=== PATIENT | female | born 1945 | race Caucasian/White ===

== ENCOUNTER 2017-06-01 08:04 | Emergency (ER) | payer MEDICARE, OTHER ==
--- NOTE | 2017-06-01 10:07 | UC ---
FLU HPI - HPI Summary HPI Summary: c/o influenza like symptoms for the past 3-4 days, has been taking zithromax from a prior prescription without avail. Rapid influenza at this center positive for influenza A/ - History of Current Complaint Chief Complaint: UCRespiratory Stated Complaint: RESP ISSUE Time Seen by Provider: 06/01/17 09:13 Hx Obtained From: Patient ?: No Onset/Duration: Gradual Onset, Lasting Days Severity Currently: Moderate Severity Initially: Mild Pain Scale Used: 0-10 Numeric - 0 Associated Signs & Symptoms: Positive: Fever, Cough, Sore Throat - Risk Factors Influenza Risk Factors: Age 65 y/o or Older - Allergy/Home Medications Allergies/Adverse Reactions: Allergies Allergy/AdvReac Type Severity Reaction Status Date / Time Erythromycin Allergy itch Verified 06/01/17 08:18 Sulfa Antibiotics Allergy itchiness Verified 06/01/17 08:18 Home Medications: Home Medications Amitriptyline HCl [Amitriptyline HCl-] 75 mg PO BEDTIME 06/01/17 [History Confirmed 06/01/17] Anastrozole [Arimidex] 1 mg PO DAILY 06/01/17 [History Confirmed 06/01/17] Atorvastatin* [Lipitor 20 MG*] 40 mg PO DAILY 06/01/17 [History Confirmed ] Azithromyxin ODELL (NF) [Z-Odell (Zithromax) 250 mg tabs #6] 2 tab PO .TODAY, THEN 1 DAILY 06/01/17 [History Confirmed 06/01/17] Calcium Carbonate-Cholecalcife [Calcium 1000 + D] 1 tab PO DAILY 06/01/17 [ History Confirmed 06/01/17] DULoxetine DR CAP* [Cymbalta CAP*] 20 mg PO BID 06/01/17 [History Confirmed ] Escitalopram Oxalate [Lexapro 20 mg] 20 mg PO DAILY 06/01/17 [History Confirmed 06/01/17] Hydrochlorothiazide [Microzide-] 12.5 mg PO DAILY 06/01/17 [History Confirmed ] Hydrocodone/Acetamin 10/325(NF [Potomac 10/325 (NF)] 1 tab PO TID PRN 06/01/17 [ History Confirmed 06/01/17] Krill Oil [Krill Oil 300 mg] 2 cap PO BID 06/01/17 [History Confirmed 06/01/17] Lansoprazole CAP (NF) [Prevacid CAP (NF)] 60 mg PO BID 06/01/17 [History Confirmed 06/01/17] Levothyroxine TAB* [Synthroid 125 MCG TAB*] 125 mg PO DAILY 06/01/17 [History Confirmed 06/01/17] Melatonin 10 mg PO BEDTIME 06/01/17 [History Confirmed 06/01/17] PMH/Surg Hx/FS Hx/Imm Hx Endocrine History: Dyslipidemia Neurological History: Other - neuropathy Other Neurological History: neuropathy Psychological History: Post Traumatic Stress Disorder - Surgical History Surgical History: Yes Surgery Procedure, Year, and Place: fx back and wrist - Social History Alcohol Use: None Substance Use Type: None Smoking Status (MU): Never Smoked Tobacco Review of Systems Constitutional: Fever ENT: Sore Throat Respiratory: Cough All Other Systems Reviewed And Are Negative: Yes Physical Exam Triage Information Reviewed: Yes Appearance: Ill-Appearing Vital Signs: Initial Vital Signs Temp 96.4 F 06/01/17 08:24 Pulse 99 06/01/17 08:24 Resp 16 06/01/17 08:24 BP 126/72 06/01/17 08:24 Pulse Ox 100 06/01/17 08:24 Vital Signs Reviewed: Yes Eye Exam: Normal ENT Exam: Normal Dental Exam: Normal Neck exam: Normal Respiratory Exam: Normal Cardiovascular Exam: Normal Flu Course/Dx - Course Course Of Treatment: rest, fluids, it is not advisible patient flies. Highly contagious. - Differential Dx/Diagnosis Provider Diagnoses: Influenza A Discharge - Discharge Plan Condition: Stable Disposition: HOME Patient Education Materials: Influenza (ED) Forms: *Work Release Referrals: No Primary Care Phys,NOPCP [Primary Care Provider] -
== END 2017-06-01 10:15 | disposition home or self-care (01) ==
LOC: UCEAST 08:04
DX: J11.1 Influenza due to unidentified influenza virus with other respiratory manifestations (principal); E78.5 Hyperlipidemia, unspecified; G62.9 Polyneuropathy, unspecified; F43.10 Post-traumatic stress disorder, unspecified; Z88.1 Allergy status to other antibiotic agents; Z88.2 Allergy status to sulfonamides
CPT/HCPCS: 87502; 99202; G0463

== ENCOUNTER 2017-11-14 07:48 | Emergency (ER) | payer MEDICARE, OTHER ==
--- OUTSIDE RECORDS SUMMARY | 2017-11-14 07:56 | XMS REPORT ---
:1945 External Reference #:[id number] Author Organization [employer] Address [address] [place] [address] [place] [address] Phone [phone] Care Team Providers Name Role Phone Anuja Garcia MD Primary Care Physician Unavailable Payers Type Date Identification Numbers Payment Provider Subscriber Medicare Primary Policy Number: [id number] Medicare Radha Ferro PayID: [id number] [address] [place] [address] [facility] Part B Policy Number: [id number] [employer] Radha Ferro PayID: [id number] [employer] [address] [address] [place] [address] Problems Description No Information Social History Description No Information Available Allergies, Adverse Reactions, Alerts Date Description Reaction Status Severity Comments 11/12/2017 Sulfa Antibiotics active Medications Medication Date Status Form Strength Qnty SIG Indications Ordering Provider Calcium Plus D 11/12 Active 3 daily Darrel Garcia Escitalopram 11/12 Active Tablets 20mg 90tab 1 by mouth s every day Darrel Garcia Zithromax Z-Luis A 05/30 Active Tablets 250mg 1Pack as per directions Darrel Ferro Synthroid Active Tablets 112mcg 1 by mouth Unknown /0000 every day Prevacid Active Capsules 30mg 2 by mouth Unknown /0000 DR every day Atorvastatin Active Tablets 40mg 1 by mouth Unknown Calcium /0000 every day Triamterene/Hyd Active Tablets 37.5-25mg 1 by mouth Unknown rochlorothiazid / every day e Anastrozole Active Tablets 1mg one daily Unknown / Amitriptyline Active Tablets 10mg 3 at bed Unknown HCL /0000 Cymbalta [address] 30mg 1 by mouth Unknown /0000 Part every day Melatonin ER 0000 Active Tablets 10mg 1 tab by Unknown /0000 ER mouth at bedtime Krill Oil 00 Active Capsules 300mg Unknown /0000 Aspir-81 00/00 Active Tablets 81mg 1 by mouth Unknown /0000 DR every day Vital Signs Date Vital Result Comment 11/12/2017 Height 61.5 inches 5'1.50" Weight 197.00 lb Heart Rate 85 /min BP Systolic Sitting 133 mmHg BP Diastolic Sitting 91 mmHg O2 % BldC Oximetry 100 % BMI (Body Mass Index) 36.6 kg/m2 Results Description No Information Procedures Description No Information Plan of Care Future Appointment(s):02/13/2018 1:00 pm - Anuja Garcia M.D. at [facility] Internal Medicine [facility]11/12/2017 - Anuja Garcia M.D.M54.9 Dorsalgia , unspecifiedNew Therapy:Physical TherapyComments:Start with PT at [facility]. Consider the transitions program from PTFollow up:3 months for BP and other issues. CATHIE: Dr. Manzanares [phone], Marlo Mayberry [phone], Marlo Ma [phone], [place] Dr. Frank [phone] [facility] [place] [phone] Gastro-esophageal reflux disease without esophagitisComments:Stay on the PrevacidReduce the amitriptylineWe will get your records and then I can refer you to GIM81.0 Age-related osteoporosis w/o current pathological fractureComments:Please do blood tests.R03.0 Elevated blood -pressure reading, w/o diagnosis of htnComments:Please check BP at home/ rhjbrokaE60.3 Personal history of malignant neoplasm of breastNew Xrays:[facility] YegymtiuzN66.828 Personal history of other malignant neoplasm of skinReferral:Krystal Asher MD, JsuvqkcudznN39.36 Body mass index (BMI) 36.0 -36.9, adultComments:Do PT first
[2017-11-14 08:08] VITALS: BP 127/91
--- NOTE | 2017-11-14 08:58 | RAD ---
HISTORY: knee injury COMPARISONS: None VIEWS: 4, Frontal, lateral, axial, and oblique views of the left knee FINDINGS: BONE DENSITY: Normal. BONES: There is no displaced fracture. JOINTS: There is moderate tricompartmental osteoarthritis. There is a moderate suprapatellar joint effusion without lipohemarthrosis. ALIGNMENT: There is no dislocation. SOFT TISSUES: Unremarkable. OTHER FINDINGS: None. IMPRESSION: OSTEOARTHRITIS. JOINT EFFUSION. NO ACUTE OSSEOUS INJURY. IF SYMPTOMS PERSIST, RECOMMEND REPEAT IMAGING.
--- NOTE | 2017-11-14 11:59 | UC ---
Alecia Oneill Rebecca, scribed for Meng Duff MD on 11/14/17 at 0824 . Lower Extremity/Ankle HPI - HPI Summary HPI Summary: Pt is a 72 y/o F who presents to [facility] c/o L lateral knee pain s/p "twist." Yesterday she was on a ladder and while stepping down, missed the step and twisted her L knee. Pain has been gradually worsening since onset, ranked 8/10 on triage. 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 Sx aggravated by ambulation, alleviated by nothing. Notes calf pain with ambulation. Has a cane with her, which she uses regularly. - History of Current Complaint Chief Complaint: UCLowerExtremity Stated Complaint: KNEE INJURY Time Seen by Provider: 11/14/17 08:18 Hx Obtained From: Patient Onset/Duration: Still Present Severity Currently: Severe Pain Intensity: 8 Pain Scale Used: 0-10 Numeric Aggravating Factor(s): Ambulation Alleviating Factor(s): Nothing Able to Bear Weight: Yes - Allergies/Home Medications Allergies/Adverse Reactions: Allergies Allergy/AdvReac Type Severity Reaction Status Date / Time erythromycin base Allergy Hives Verified 11/14/17 08:07 Sulfa (Sulfonamide Allergy Hives Verified 11/14/17 08:07 Antibiotics) Home Medications: Home Medications Ibuprofen TAB* [Advil TAB*] 400 mg PO Q6H PRN 11/14/17 [History Confirmed ] PMH/Surg Hx/FS Hx/Imm Hx - Additional Past Medical History Additional PMH: PMHx: Sciatica Endocrine History: Thyroid Disease GI/ History: Gastroesophageal Reflux - Surgical History Surgical History: Yes Surgery Procedure, Year, and Place: fx back and wrist. Back surgery 2016. R breast Lumpectomy 2014 - Family History Known Family History: Negative: Blood Disorder - Social History Alcohol Use: Weekly Substance Use Type: None Smoking Status (MU): Never Smoked Tobacco Review of Systems Constitutional: Negative Skin: Negative Eyes: Negative ENT: Negative Respiratory: Negative Cardiovascular: Negative Gastrointestinal: Negative Genitourinary: Negative Motor: Negative Neurovascular: Negative Musculoskeletal: Other: - L lateral knee pain, calf pain with ambulation Neurological: Negative Psychological: Negative All Other Systems Reviewed And Are Negative: Yes Physical Exam - Summary Physical Exam Summary: Appearance: Well appearing, no pain distress Skin: warm, dry, reflects adequate perfusion Head/face: normal Eyes: EOMI, ALEX ENT: normal Neck: supple, non-tender Respiratory: CTA, breath sounds present Cardiovascular: RRR, pulses symmetrical Abdomen: non-tender, soft Bowel Sounds: present Musculoskeletal: No erythema, no ankle swelling, no calf tenderness, examination of the left knee shows no joint effusion, no lateral joint line pain , is stable with varus and valgus, no muscular tenderness to palpation, mild proximal fibular tenderness, strength/ROM intact Neuro: normal, sensory motor intact, A&Ox3 Triage Information Reviewed: Yes Vital Signs: Initial Vital Signs Temp 97.5 F 11/14/17 08:00 Pulse 87 11/14/17 08:00 Resp 16 11/14/17 08:00 BP 127/91 11/14/17 08:00 Pulse Ox 100 11/14/17 08:00 Vital Signs Reviewed: Yes Diagnostics - Radiology Knee XR Radiology Interpretation Completed By: ED Physician - Degenerative arthritis, no acute fracture., Radiologist - OSTEOARTHRITIS. JOINT EFFUSION. NO ACUTE OSSEOUS INJURY. IF SYMPTOMS PERSIST, RECOMMEND REPEAT IMAGING. Physician reviewed this report. Re-Evaluation - Re-Evaluation First Eval Re-Evaluation Time: 08:55 Comment: Discussed XR results and recommended follow up. Lower Extremity Course/Dx - Course Course Of Treatment: Twisting injury to the leg with small effusion seen on x- ray. None clinically on exam. Likely LCL sprain. Anam wrap applied. Walking with a cane. Follow-up with primary care physician. Also noted to have significant osteoarthritis. Treat symptomatically. - Differential Dx/Diagnosis Provider Diagnoses: Lateral collateral ligament sprain left knee, osteoarthritis in the left knee Discharge - Sign-Out/Discharge Documenting (check all that apply): Discharge/Admit/Transfer - Discharge - Discharge Plan Condition: Improved Disposition: HOME Patient Education Materials: Knee Sprain (ED), Osteoarthritis (ED) Referrals: Anuja Garcia MD [Primary Care Provider] - Additional Instructions: Ice, ibuprofen, Anam wrap as needed. Return if worse, new symptoms or other concerns. See her doctor in 1 week for follow-up. Walk with cane as needed. - Billing Disposition and Condition Condition: IMPROVED Disposition: Home The documentation as recorded by the Alecia grider Rebecca accurately reflects the service I personally performed and the decisions made by Omega rivera Kirk, MD.
== END 2017-11-14 09:00 | disposition home or self-care (01) ==
LOC: UCEAST 07:48
DX: S83.422A Sprain of lateral collateral ligament of left knee, initial encounter (principal); X50.1XXA Overexertion from prolonged static or awkward postures, initial encounter; Y93.89 Activity, other specified; Y92.9 Unspecified place or not applicable; M17.12 Unilateral primary osteoarthritis, left knee; E07.9 Disorder of thyroid, unspecified; K21.9 Gastro-esophageal reflux disease without esophagitis; Z88.1 Allergy status to other antibiotic agents; Z88.2 Allergy status to sulfonamides
CPT/HCPCS: 99212; G0463

== ENCOUNTER 2017-12-04 13:29 | Emergency (ER) | payer MEDICARE, OTHER ==
--- OUTSIDE RECORDS SUMMARY | 2017-12-04 14:11 | XMS REPORT ---
:1945 External Reference #:[id number] Author Organization [employer] Address [address] [place] [address] [place] [address] Phone [phone] Care Team Providers Name Role Phone Anuja Garcia MD Primary Care Physician Unavailable Payers Type Date Identification Numbers Payment Provider Subscriber Medicare Primary Policy Number: [id number] Medicare Radha Ferro PayID: [id number] [address] [place] [address] [employer] Part B Policy Number: [id number] [employer] Radha Ferro PayID: [id number] [employer] [address] [address] [place] [address] Problems Date Description Provider Status Onset: 11/28/2017 Personal history of primary malignant Anuja Garcia M.D. 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 Synthroid Active Tablets 112mcg 1 by mouth Unknown /0000 every day Prevacid Active Capsules 30mg 2 by mouth Unknown / DR every day Atorvastatin Active Tablets 40mg 1 by mouth Unknown Calcium /0000 every day Triamterene/Hyd Active Tablets 37.5-25mg 90tab 1 by mouth Anuja rochlorothiaz / s every day Darrel Garcia e Anastrozole Active Tablets 1mg one daily Unknown Amitriptyline Active Tablets 10mg 3 at bed Unknown HCL [address] 30mg 1 by mouth Unknown / Part every day Melatonin ER Active Tablets 10mg 1 tab by Unknown / ER mouth at bedtime Krill Oil Active Capsules 300mg Unknown / Aspir-81 Active Tablets 81mg 1 by mouth Unknown /0000 DR every day Immunizations CPT Code Status Date Vaccine Lot # [id number] Given 11/15/2017 Zoster (Shingles) Vaccine (HZV), Recombinant, Subunit, Adjuvanted Vital Signs Date Vital Result Comment 11/28/2017 Height 61.5 inches 5'1.50" Weight 194.25 lb Heart Rate 93 /min BP Systolic Sitting 129 mmHg BP Diastolic Sitting 92 mmHg O2 % BldC Oximetry 97 % BMI (Body Mass Index) 36.1 kg/m2 11/12/2017 Height 61.5 inches 5'1.50" Weight 197.00 lb Heart Rate 85 /min BP Systolic Sitting 133 mmHg BP Diastolic Sitting 91 mmHg O2 % BldC Oximetry 100 % BMI (Body Mass Index) 36.6 kg/m2 Results Test Date Test Result H/L Range Note Lipid Profile (Trig/Chol/HDL) 11/18/2017 Triglycerides 107 mg/dL 1 Cholesterol 208 mg/dL 2 HDL Cholesterol 80.5 mg/dL 3 LDL Cholesterol 106 mg/dL 4 Comp Metabolic Panel 11/18/2017 Sodium 140 mmol/L 135-145 Potassium 3.7 mmol/L 3.5-5.0 Chloride 100 mmol/L Low 101-111 Co2 Carbon Dioxide 33 mmol/L High 22-32 Anion Gap 7 mmol/L 2-11 Glucose 97 mg/dL 70-100 Blood Urea Nitrogen 10 mg/dL 6-24 Creatinine 0.83 mg/dL 0.51-0.95 BUN/Creatinine Ratio 12.0 8-20 Calcium 9.5 mg/dL 8.6-10.3 Total Protein 6.7 g/dL 6.4-8.9 Albumin 4.0 g/dL 3.2-5.2 Globulin 2.7 g/dL 2-4 Albumin/Globulin Ratio 1.5 1-3 Total Bilirubin 0.40 mg/dL 0.2-1.0 Alkaline Phosphatase 57 U/L 34-104 Alt 16 U/L 7-52 Ast 23 U/L 13-39 Egfr Non- 67.4 >60 Egfr 81.5 >60 5 1 Desirable: <150 Borderline High: 150-199 High: 200-499 Very High: >500 2 Desirable: <200 Borderline High: 200-239 High: >239 3 Low: <40 Desirable: 40-60 High: >60 4 Desirable: <100 Near Optimal: 100-129 Borderline High: 130-159 High: 160-189 Very High: >189 5 Because ethnic data is not always readily available, this report includes an eGFR for both -Americans and non- Americans. The National Kidney Disease Education Program (NKDEP) does not endorse the use of the MDRD equation for patients that are not between the ages of 18 and 70, are , have extremes of body size, muscle mass, or nutritional status, or are non- or non-. According to the National Kidney Foundation, irrespective of diagnosis, the stage of the disease is based on the level of kidney function: Stage Description GFR(mL/min/1.73 m(2)) 1 Kidney damage with normal or decreased GFR 90 2 Kidney damage with mild decrease in GFR 60-89 3 Moderate decrease in GFR 30-59 4 Severe decrease in GFR 15-29 5 Kidney failure <15 (or dialysis) Procedures Description No Information Encounters Type Date Location Provider CPT E/M Dx Office Visit 11/12/2017 [facility] Anuja Garcia, [address] M54.9 10:40a - Merary Rojo K21.9 M81.0 R03.0 Z85.3 Z85.828 F33.9 Z68.36 Plan of Care Future Appointment(s):02/13/2018 1:00 pm - Anuja Garcia M.D. at [facility] Internal Medicine - Yeuwwzohk28/19/2018 - Anuja Garcia M.D.M54.30 Sciatica , unspecified sideNew Xrays:MRI Lumbar Spine W/OM85.80 Oth disrd of bone density and structure, unspecified siteComments:We need a copy of your bone density test You need to start back on ByqlzwH07.3 Personal history of malignant neoplasm of breastReferral:Aleksandar Ball MD, Hematology/Phys/ WfzlxQ16.559 Pain in unspecified hipM54.9 Dorsalgia, unspecified
--- NOTE | 2017-12-04 14:18 | ED ---
Upper Extremity Pain - HPI Summary HPI Summary: Patient is a 72-year-old female who presents emergency department for a right hand and right knee injury that occurred just prior to arrival. Patient states she just had an MRI done of her back and she was walking out and she tripped on her shoes and fell. She did not strike her head or lose consciousness. She is not anticoagulated. Patient denies chest pain, shortness of breath, lightheadedness, dizziness, recent illness. Symptoms are mild in severity. Moving right hand and right knee makes symptoms worse. Rest makes symptoms better. - History of Current Complaint Chief Complaint: EDExtremityUpper Stated Complaint: FALL/ RT KNEE & HAND PAIN Time Seen by Provider: 12/04/17 13:41 Hx Obtained From: Patient - Allergies/Home Medications Allergies/Adverse Reactions: Allergies Allergy/AdvReac Type Severity Reaction Status Date / Time erythromycin base Allergy Hives Verified 12/03/17 09:37 Sulfa (Sulfonamide Allergy Hives Verified 12/03/17 09:37 Antibiotics) PMH/Surg Hx/FS Hx/Imm Hx Previously Healthy: Yes Endocrine/Hematology History: Reports: Hx Thyroid Disease - hypo Denies: Hx Diabetes Cardiovascular History: Reports: Hx Hypertension Denies: Hx Pacemaker/ICD Respiratory History: Denies: Hx Asthma History: Denies: Hx Renal Disease Sensory History: Denies: Hx Hearing Aid Psychiatric History: Denies: Hx Panic Disorder - Cancer History Cancer Type, Location and Year: R breast 2013 Hx Chemotherapy: No Hx Radiation Therapy: Yes - Surgical History Surgery Procedure, Year, and Place: fx back and wrist. Back surgery 2016. R breast Lumpectomy 2013 Infectious Disease History: No Infectious Disease History: Denies: Hx Clostridium Difficile, Hx Hepatitis, Hx Human Immunodeficiency Virus (HIV), Hx of Known/Suspected MRSA, Hx Shingles, Hx Tuberculosis, Hx Known/ Suspected VRE, Hx Known/Suspected VRSA, History Other Infectious Disease, Traveled Outside the [place] in Last 30 Days - Family History Known Family History: Positive: Unknown Negative: Blood Disorder - Social History Occupation: Retired Lives: With Family Alcohol Use: Weekly Substance Use Type: Reports: None Smoking Status (MU): Never Smoked Tobacco Review of Systems Positive: Other - Right hand and knee pain Positive: Other - Abrasion to hand Neurological: Negative All Other Systems Reviewed And Are Negative: Yes Physical Exam Triage Information Reviewed: Yes Vital Signs On Initial Exam: Initial Vitals Temp Pulse Resp BP Pulse Ox 98.1 F 93 16 130/88 96 12/04/17 13:33 12/04/17 13:33 12/04/17 13:33 12/04/17 13:12/04/17 13:33 Vital Signs Reviewed: Yes Appearance: Positive: Well-Appearing - Patient sitting in a wheel chair in no acute distress. Skin: Positive: Warm, Dry Head/Face: Positive: Normal Head/Face Inspection Eyes: Positive: Normal Neck: Positive: Supple Musculoskeletal: Positive: Other - Mild edema and pain noted over the right MCP joint with small, overlying superficial abrasion. Pain to base of right thumb. No proximal wrist pain. No snuff box tenderness. Mild pain with ROM of right knee. Good pedal pulse. Neurological: Positive: Normal, CN Intact II-III Diagnostics - Vital Signs Vital Signs Temp Pulse Resp BP Pulse Ox 12/04/17 13:33 98.1 F 93 16 130/88 96 - Laboratory Lab Statement: Any lab studies that have been ordered have been reviewed, and results considered in the medical decision making process. Course/Dx - Course Course Of Treatment: Patient presenting for minor hand knee injury after a mechanical fall. X-rays of hand and knee are negative for acute findings, reading per radiology. Results discussed with patient. Anam wrap placed on palpation for comfort. Advised to follow-up with PCP for recheck pain persists. To ice and elevate. Tylenol or Motrin for pain as directed. Patient understands and agrees with plan. - Diagnoses Differential Diagnosis/HQI/PQRI: Positive: Contusion, Fracture (Closed), Strain , Sprain Provider Diagnoses: Knee sprain, Hand sprain Discharge - Sign-Out/Discharge Documenting (check all that apply): Patient Departure - Discharge Plan Condition: Good Disposition: HOME Patient Education Materials: Knee Sprain (ED), Hand Sprain (ED) Referrals: Anuja Garcia MD [Primary Care Provider] - Additional Instructions: Follow up with your PCP if pain persist Ice and elevate Tylenol for pain as directed Return to ER if symptoms change or worsen - Billing Disposition and Condition Condition: GOOD Disposition: Home
--- NOTE | 2017-12-04 14:30 | RAD ---
HISTORY: Fall, right hand pain COMPARISONS: None VIEWS: 4, Frontal, lateral, and oblique views of the right hand FINDINGS: BONE DENSITY: Normal. BONES: The patient is status post internal fixation of the distal radius. There is no hardware failure or osteolysis. JOINTS: There is advanced osteoarthritis of the first second and third interphalangeal joints, fourth DIP joint, and to lesser extent of the first MCP and CMC joints. ALIGNMENT: There is no dislocation. SOFT TISSUES: Unremarkable. OTHER FINDINGS: None. IMPRESSION: OSTEOARTHRITIS. NO ACUTE OSSEOUS INJURY. IF SYMPTOMS PERSIST, RECOMMEND REPEAT IMAGING.
--- NOTE | 2017-12-04 14:33 | RAD ---
HISTORY: fall, right knee pain COMPARISONS: None VIEWS: 4, Frontal, lateral, axial, and oblique views of the right knee FINDINGS: BONE DENSITY: There is diffuse osteopenia. BONES: There is no displaced fracture. JOINTS: There is moderate tricompartmental osteoarthritis, most pronounced within the medial compartment. There is no suprapatellar joint effusion or lipohemarthrosis. ALIGNMENT: There is no dislocation. SOFT TISSUES: Unremarkable. OTHER FINDINGS: None. IMPRESSION: 1. OSTEOPENIA. 2. OSTEOARTHRITIS. 3. NO ACUTE OSSEOUS INJURY. IF SYMPTOMS PERSIST, RECOMMEND REPEAT IMAGING.
[2017-12-04 15:32] VITALS: BP 124/72
== END 2017-12-04 15:20 | disposition home or self-care (01) ==
LOC: ED 13:29
DX: S63.91XA Sprain of unspecified part of right wrist and hand, initial encounter (principal); S83.91XA Sprain of unspecified site of right knee, initial encounter; W01.0XXA Fall on same level from slipping, tripping and stumbling without subsequent striking against object, initial encounter; Y92.9 Unspecified place or not applicable; M85.861 Other specified disorders of bone density and structure, right lower leg; M17.11 Unilateral primary osteoarthritis, right knee; Z88.3 Allergy status to other anti-infective agents; Z88.2 Allergy status to sulfonamides; M51.36 Other intervertebral disc degeneration, lumbar region; M54.30 Sciatica, unspecified side; M47.896 Other spondylosis, lumbar region; M48.07 Spinal stenosis, lumbosacral region; Z98.1 Arthrodesis status
CPT/HCPCS: 99282

== ENCOUNTER 2017-12-30 07:33 | Inpatient (IN) | payer MEDICARE, OTHER ==
--- NOTE | 2017-12-30 07:55 | ED ---
Lower Extremity - HPI Summary HPI Summary: Pt is a 72 y/o female BIBA who c/o right hip pain. She states she has a previous iliac crest fracture from falling several times, and has been managing at home with a walker. Last night, she states she was not doing anything when suddenly the hip pain became excruciating. Pain is described as 8/10 at rest 10/ 10 with movement, and radiates down the top of her leg. She denies any fall last night. She states she has nausea due to the pain, and also c/o left ankle pain. Pt denies any abdominal pain, urinary symptoms, or vomiting. She took 2 Percocets at home, as prescribed by her orthopedist. PMHx GERD, back pain, osteopenia, neuropathy, and incontinence. Pt denies any DM, heart problems, or lung problems. - History of Current Complaint Chief Complaint: EDExtremityLower Stated Complaint: RT HIP PAIN Time Seen by Provider: 12/30/17 07:38 Hx Obtained From: Patient Mechanism Of Injury: Unknown Onset/Duration: Hours - Last night Severity Currently: Severe Pain Intensity: 8 Pain Scale Used: 0-10 Numeric Timing: Constant Location: Radiates To - Down top of right leg Associated Signs And Symptoms: Positive: Other - Nausea. Negative: Abdominal Pain Aggravating Factor(s): Ambulation, Movement, Weight Bearing Alleviating Factor(s): Nothing Able to Bear Weight: No Related History: Other - Recent right iliac crest fracture - Allergies/Home Medications Allergies/Adverse Reactions: Allergies Allergy/AdvReac Type Severity Reaction Status Date / Time Sulfa (Sulfonamide Allergy Hives Verified 12/30/17 07:47 Antibiotics) PMH/Surg Hx/FS Hx/Imm Hx Endocrine/Hematology History: Reports: Hx Thyroid Disease - hypo Denies: Hx Diabetes Cardiovascular History: Denies: Hx Hypertension, Hx Pacemaker/ICD Respiratory History: Denies: Hx Asthma GI History: Reports: Hx Gastroesophageal Reflux Disease History: Reports: Other Problems/Disorders - Incontinence Denies: Hx Renal Disease Musculoskeletal History: Reports: Hx Back Problems, Other Musculoskeletal History - Osteopenia Sensory History: Denies: Hx Hearing Aid Neurological History: Reports: Other Neuro Impairments/Disorders - Neuropathy Psychiatric History: Denies: Hx Panic Disorder - Cancer History Cancer Type, Location and Year: R breast 2013 Hx Chemotherapy: No Hx Radiation Therapy: Yes - Surgical History Surgery Procedure, Year, and Place: fx back and wrist RIGHT. Back surgery 2016 L4-5. R breast Lumpectomy 2014. HERNIA REPAIR. TONSILS Infectious Disease History: No Infectious Disease History: Denies: Hx Clostridium Difficile, Hx Hepatitis, Hx Human Immunodeficiency Virus (HIV), Hx of Known/Suspected MRSA, Hx Shingles, Hx Tuberculosis, Hx Known/ Suspected VRE, Hx Known/Suspected VRSA, History Other Infectious Disease, Traveled Outside the [place] in Last 30 Days - Family History Known Family History: Negative: Blood Disorder - Social History Alcohol Use: Weekly Substance Use Type: Reports: None Smoking Status (MU): Never Smoked Tobacco Review of Systems Positive: Nausea. Negative: Abdominal Pain, Vomiting Genitourinary: Negative Positive: Arthralgia - Right hip pain, left ankle pain, Decreased ROM All Other Systems Reviewed And Are Negative: Yes Physical Exam - Summary Physical Exam Summary: GENERAL: Patient is a well developed and nourished F who is lying comfortable in the stretcher.Patient is not in any acute respiratory distress. HEAD AND FACE: Normocephalic EYES: PERRLA, EOMI x 2. EARS: Hearing grossly intact. MOUTH: Oropharynx within normal limits. NECK: Supple, trachea is midline, no adenopathy, no JVD, no carotid bruit. CHEST: Symmetric, no tenderness at palpation LUNGS: Clear to auscultation bilaterally. No wheezing or crackles. CVS: Regular rate and rhythm, S1 and S2 present, no murmurs or gallops appreciated. ABDOMEN: Soft, non-tender. Bowel sounds are normal. No abdominal abnormal pulsations. EXTREMITIES: Tenderness of right iliac crest area. 5/5 motor. ROM limited secondary to pain. 2/2 sensation. no edema, no cyanosis or clubbing. NEURO: Alert and oriented x 3. No acute neurological deficits. Speech is normal and follows commands. SKIN: Dry and warm Triage Information Reviewed: Yes Vital Signs On Initial Exam: Initial Vitals Temp Pulse Resp BP Pulse Ox 97.5 F 78 16 147/97 97 12/30/17 07:34 12/30/17 07:34 12/30/17 07:34 12/30/17 07:34 12/30/17 07:34 Vital Signs Reviewed: Yes Diagnostics - Vital Signs Vital Signs Temp Pulse Resp BP Pulse Ox 12/30/17 07:34 97.5 F 78 16 147/97 97 - Laboratory Result Diagrams: 01/02/18 05:12 12/31/17 06:39 Lab Statement: Any lab studies that have been ordered have been reviewed, and results considered in the medical decision making process. - CT Pelvis CT CT Interpretation: No Acute Changes - 07:55 AGAIN NOTED IS A FRACTURE OF THE RIGHT ILIAC WING, SIMILAR TO THE MRI OF DECEMBER 26, 2017. ED physician reviewed radiology report. CT Interpretation Completed By: Radiologist Re-Evaluation - Re-Evaluation First Eval Re-Evaluation Time: 10:19 Change: Unchanged Comment: Pt still in pain. Will speak to Dr. Yost. Lower Extremity Course/Dx - Course Course Of Treatment: Pt is a 72 y/o female BIBA who c/o right hip pain. She states she has a previous iliac crest fracture from falling several times, and has been managing at home with a walker. Last night, she states she was not doing anything when suddenly the hip pain became excruciating. Pain is described as 8/10 at rest 10/10 with movement, and radiates down the top of her leg. She denies any fall last night. She states she has nausea due to the pain, and also c/o left ankle pain. Pt denies any abdominal pain, urinary symptoms, or vomiting. A physical exam revealed Tenderness of right iliac crest area. 5/5 motor. ROM limited secondary to pain. 2/[address] revealed AGAIN NOTED IS A FRACTURE OF THE RIGHT ILIAC WING, SIMILAR TO THE MRI OF DECEMBER 26, 2017. Final dx are iliac crest fracture and hip pain. Case discussed with Dr. Yost. I discussed results with patient. The patient agrees with this plan. - Diagnoses Provider Diagnoses: Fracture of iliac crest, Hip pain - Physician Notifications Discussed Care Of Patient With: Rogers Yost Time Discussed With Above Provider: 10:25 Instructed by Provider To: Admit As Inpatient - Dr. Yost accepts pt for admission. Discharge - Sign-Out/Discharge Documenting (check all that apply): Patient Departure - Admit - Discharge Plan Condition: Stable Disposition: ADMITTED TO [facility] - Billing Disposition and Condition Condition: STABLE Disposition: Admitted to [facility] - Attestation Statements Document Initiated by Scribe: Yes Documenting Scribe: Edna Valladares Provider For Whom Scribe is Documenting (Include Credential): Alfredo Lawrence MD Scribe Attestation: IEdna, scribed for Alfredo Lawrence MD on 01/03/18 at 0736. Scribe Documentation Reviewed: Yes Provider Attestation: The documentation as recorded by the scribeEdna accurately reflects the service I personally performed and the decisions made by me, Alfredo Lawrence MD
--- OUTSIDE RECORDS SUMMARY | 2017-12-30 07:55 | XMS REPORT ---
:1945 External Reference #:[id number] Author Organization [employer] [employer] Address [address] [place] [address] [place] [address] Phone [phone] Care Team Providers Name Role Phone Anuja Garcia MD Primary Care Physician Unavailable Payers Type Date Identification Numbers Payment Provider Subscriber Medicare Primary Policy Number: [id number] Medicare Radha Ferro PayID: [id number] [address] [place] [address] Medigap Part B Policy Number: [id number] [employer] Radha Ferro PayID: [id number] [employer] [address] [address] [place] [address] Problems Date Description Provider Status Onset: 11/28/2017 Personal history of primary Anuja Garcia M.D. Active malignant neoplasm of breast Onset: 12/23/2017 Localized, primary osteoarthritis Nakia Bennett M.D. Active Onset: 12/23/2017 Localized, primary osteoarthritis Nakia Bennett M.D. 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, 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[employer] ETOH Use Drinks 3 Alcoholic Beverages Per Week Smoking Patient has never smoked Recreational Drug Use Denies Drug Use Daily Caffeine Consumes on average 2 cups of regular coffee per day Exercise Type/Frequency Exercises regularly Allergies, Adverse Reactions, Alerts Date Description Reaction Status Severity Comments 11/12/2017 Sulfa Antibiotics active Medications Medication Date Status Form Strength Qnty SIG Indications Ordering Provider Cyclobenzaprine 12/23 Active Tablets 10mg 30tab 1 tablet M25.551 Nakia HCL s by mouth Darrel Bennett q8 hours as needed muscle spasms Percocet 12/23 Active Tablets 5-325mg 60tab 1-2 tabs M25.551 Nakia s by mouth Darrel Bennett q8 as needed pain Tylenol With 12/05 Active Tablets 300-30mg 120ta 1 PO 4 Anuja Codeine # bs times Darrel Garcia daily as needed for pain Calcium Plus D 11/12 Active 3 daily Anuja /2018 Darrel Garcia Escitalopram 11/12 Active Tablets 20mg 90tab 1 by mouth Anuja Oxalate s every day Darrel Garcia Zithromax Z-Luis A 05/30 Active Tablets 250mg 1Pack as per [place] /2017 directions Darrel Ferro Synthroid Active Tablets 112mcg 1 by mouth Unknown /0000 every day Prevacid Active Capsules 30mg 60cap [address] stevens every day Darrel Garcia Atorvastatin Active Tablets 40mg 1 by mouth Unknown Calcium every day Triamterene/Hydr Active Tablets 37.5-25mg 90tab 1 by mouth Anuja ochlorothiazide s every day Darrel Garcia Anastrozole Active Tablets 1mg one daily Unknown / Amitriptyline Active Tablets 10mg 3 at bed Unknown HCL /[address] 30mg 1 by mouth Unknown /0000 Part every day Melatonin ER Active Tablets 10mg 1 tab by Unknown /0000 ER mouth at bedtime Krill Oil Active Capsules 300mg Unknown /0000 Aspir-81 Active Tablets 81mg 1 by mouth Unknown /0000 DR every day Immunizations CPT Code Status Date Vaccine Lot # [id number] Given 11/15/2017 Zoster (Shingles) Vaccine (HZV), Recombinant, Subunit, Adjuvanted Vital Signs Date Vital Result Comment 12/23/2017 Height 61.5 inches 5'1.50" Weight 193.00 lb BP Systolic 111 mmHg BP Diastolic 79 mmHg Respiratory Rate 17 /min Pain Level 7 BMI (Body Mass Index) 35.9 kg/m2 12/20/2017 Height 61.5 inches 5'1.50" Weight 193.50 lb Heart Rate 68 /min BP Systolic Sitting 118 mmHg BP Diastolic Sitting 92 mmHg Body Temperature 97.4 F Pain Level 7 BMI (Body Mass Index) 36.0 kg/m2 11/28/2017 Height 61.5 inches 5'1.50" Weight 194.25 [...] Test Date Test Result H/L Range Note Laboratory test finding 12/23/2017 Vitamin D Total 25(Oh) 41.6 ng/mL 20- 50 Basic Metabolic Panel 12/23/2017 Sodium 136 mmol/L 135-145 Potassium 3.6 mmol/L 3.5-5.0 Chloride 100 mmol/L Low 101-111 Co2 Carbon Dioxide 30 mmol/L 22-32 Anion Gap 6 mmol/L 2-11 Glucose 88 mg/dL 70-100 Blood Urea Nitrogen 20 mg/dL 6-24 Creatinine 1.01 mg/dL High 0.51-0.95 BUN/Creatinine Ratio 19.8 8-20 Calcium 9.3 mg/dL 8.6-10.3 Egfr Non- 53.7 >60 Egfr 65.0 >60 1 CBC Auto Diff 12/02/2017 White Blood Count 6.5 10^3/uL 3.5-10.8 Red Blood Count 4.27 10^6/uL 4.00-5.40 Hemoglobin 12.7 g/dL 12.0-16.0 Hematocrit 38 % 35-47 Mean Corpuscular Volume 89 fL 80-97 Mean Corpuscular Hemoglobin 30 pg 27-31 Mean Corpuscular HGB Conc 34 g/dL 31-36 Red Cell Distribution Width 14 % 10.5-15 Platelet Count 377 10^3/uL 150-450 Mean Platelet Volume 8.2 um3 7.4-10.4 Abs Neutrophils 3.8 10^3/uL 1.5-7.7 Abs Lymphocytes 1.9 10^3/uL 1.0-4.8 Abs Monocytes 0.5 10^3/uL 0-0.8 Abs Eosinophils 0.2 10^3/uL 0-0.6 Abs Basophils 0.1 10^3/uL 0-0.2 Abs Nucleated RBC 0 10^3/uL Granulocyte % 58.6 % 38-83 Lymphocyte % 29.4 % 25-47 Monocyte % 8.2 % High 0-7 Eosinophil % 2.9 % 0-6 Basophil % 0.9 % 0-2 Nucleated Red Blood Cells % 0 Laboratory test finding 12/02/2017 Erythrocyte Sed Rate 29 mm/Hr 0-40 C Reactive Protein 1.77 mg/L <8.01 Protein Electrophoresis 12/02/2017 Total Protein(Pep) 7.1 g/dL 6.3 - 7.9 Albumin 3.3 g/dL 3.4-4.7 Alpha-1 Globulin 0.2 g/dL 0.1-0.3 Alpha-2 Globulin 1.1 g/dL 0.6-1.0 Beta Globulin 1.3 g/dL 0.7-1.2 Gamma Globulin 1.2 g/dL 0.6-1.6 Albumin/Globulin Ratio 0.88 Impression See Comment 2 Lipid Profile (Trig/Chol/HDL) 11/18/2017 Triglycerides 107 mg/dL 3 Cholesterol 208 mg/dL 4 HDL Cholesterol 80.5 mg/dL 5 LDL Cholesterol 106 mg/dL 6 Comp Metabolic Panel 11/18/2017 Sodium 140 mmol/L [...] Egfr Non- 67.4 >60 Egfr 81.5 >60 7 1 Because ethnic data is not always readily [...] 15-29 5 Kidney failure <15 (or dialysis) 2 RESULT: No apparent monoclonal protein on serum electrophoresis. Test Performed by: [address] [address] 3 Desirable: <150 Borderline High: 150-199 High: 200-499 Very High: >500 4 Desirable: <200 Borderline High: 200-239 High: >239 5 Low: <40 Desirable: 40-60 High: >60 6 Desirable: <100 Near Optimal: 100-129 Borderline High: 130-159 High: 160-189 Very High: >189 7 Because ethnic data is not always readily [...] 5 Kidney failure <15 (or dialysis) Procedures Date CPT Code Description Status 12/05/2017 Mammogram Completed Encounters Type Date Location Provider CPT E/M Dx Office Visit 12/10/2017 [facility] [place] [address] M51.36 8:30a Of [facility] MD Ronal M51.17 M47.26 Z98.1 Office Visit 11/28/2017 4:00p [facility] Internal Medicine Anuja Garcia, 32594 M54.30 - Merary Rojo M85.80 Z85.3 M25.559 M54.9 Office Visit 11/12/2017 10:40a [facility] Internal Medicine Anuja Garcia [address] M54.9 - Merary Rojo K21.9 M81.0 R03.0 Z85.3 Z85.828 F33.9 Z68.36 Plan of Care Future Appointment(s):01/28/2018 2:00 pm - Leah Villeda MD at [facility]02/13/2018 1:00 pm - Anuja Garcia M.D. at [facility] Internal Medicine [facility]12/23/2017 - Nakia Bennett M.D.M25.551 Pain in right hipNew Medication:Cyclobenzaprine HCL 10 mgPercocet 5-325 mgNew Xrays:Hip Right 2 Views And Pelvis [id number] - [id number] up:Follow up: after MRIM16.11 Unilateral primary osteoarthritis, right hipM25.562 Pain in left kneeM25.462 Effusion, left kneeM17.12 Unilateral primary osteoarthritis, left knee
--- OUTSIDE RECORDS SUMMARY | 2017-12-30 07:56 | XMS REPORT ---
:1945 External Reference #:[id number] Author Organization [employer] Address [address] [place] [address] [place] [address] Phone [phone] Care Team Providers Name Role Phone Anuja Garcia MD Primary Care Physician Unavailable Payers Type Date Identification Numbers Payment Provider Subscriber Medicare Primary Policy Number: [id number] Medicare Radha Ferro PayID: [id number] [address] [place] [address] Medigap Part B Policy Number: [id number] [employer] Radha Ferro PayID: [id number] [employer] [address] [address] [place] [address] Problems Date Description Provider Status Onset: 11/28/2017 Personal history of primary Anuja Garcia M.D. 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[employer] ETOH Use Drinks 3 Alcoholic Beverages Per Week Smoking Patient has never smoked Recreational Drug Use Denies Drug Use Daily Caffeine Consumes on average 2 cups of regular coffee per day Exercise Type/Frequency Exercises regularly Allergies, Adverse Reactions, Alerts Date Description Reaction Status Severity Comments 11/12/2017 Sulfa Antibiotics active Medications Medication Date Status Form Strength Qnty SIG Indications Ordering Provider Tylenol With 12/05 Active Tablets 300-30mg 28tab 1 PO 4 Anuja Codeine # s times daily Darrel Garcia as needed for pain Calcium Plus D 11/12 Active 3 daily Anuja Darrel Garcia Escitalopram 11/12 Active Tablets 20mg 90tab 1 by mouth Anuja s every day Darrel Garcia Zithromax Z-Luis A 05/30 Active Tablets 250mg 1Pack as per [place] directions Darrel Ferro Synthroid Active Tablets 112mcg 1 by mouth Unknown /0000 every day Prevacid Active Capsules 30mg 2 by mouth Unknown /0000 DR every day Atorvastatin Active Tablets 40mg 1 by mouth Unknown Calcium /0000 every day Triamterene/Hyd Active Tablets 37.5-25mg 90tab 1 by mouth Anuja rochlorothiaz / s every day Darrel Garcia e Anastrozole Active Tablets 1mg one daily Unknown /0000 Amitriptyline Active Tablets 10mg 3 at bed [...] CPT Code Status Date Vaccine Lot # [id number] Given 11/15/2017 Zoster (Shingles) Vaccine (HZV), Recombinant, [...] Test Date Test Result H/L Range Note CBC Auto Diff 12/02/2017 White Blood Count [...] 0.6-1.6 Albumin/Globulin Ratio 0.88 Impression See Comment 1 Lipid Profile (Trig/Chol/HDL) 11/18/2017 Triglycerides 107 mg/dL 2 Cholesterol 208 mg/dL 3 HDL Cholesterol 80.5 mg/dL 4 LDL Cholesterol 106 mg/dL 5 Comp Metabolic Panel 11/18/2017 Sodium 140 mmol/L [...] Egfr Non- 67.4 >60 Egfr 81.5 >60 6 1 RESULT: No apparent monoclonal protein on serum electrophoresis. Test Performed by: [address] [address] 2 Desirable: <150 Borderline High: 150-199 High: 200-499 Very High: >500 3 Desirable: <200 Borderline High: 200-239 High: >239 4 Low: <40 Desirable: 40-60 High: >60 5 Desirable: <100 Near Optimal: 100-129 Borderline High: 130-159 High: 160-189 Very High: >189 6 Because ethnic data is not always readily [...] Location Provider CPT E/M Dx Office Visit 11/28/2017 [facility] Internal Medicine Anuja Garcia, 47593 M54.30 4:00p - Merary Rojo M85.80 Z85.3 M25.559 M54.9 Office Visit 11/12/2017 10:40a [facility] Internal Medicine Anuja Garcia, 26661 M54.9 - Merary Rojo K21.9 M81.0 R03.0 Z85.3 Z85.828 F33.9 Z68.36 Plan of Care Future Appointment(s):02/13/2018 1:00 pm - Anuja Garcia M.D. at [facility] Internal Medicine - Whlxkmkeo68/31/2018 - Leah Villeda, MDM51.36 Other intervertebral disc degeneration, lumbar regionNew Xrays:CT Spine Lumbar W/OSP Lumbar Ap//Lat 2-3 ViewsSpine Entire Ap/LatNew Therapy:Physical TherapyReferral: Nakia Bennett MD, Surgery,Ortho Adult ReconFollow up:RV in one week after films are done. Please obtain prior DEXA scan results and previous lumbar surgery operative report.M51.17 Intvrt disc disorders w radiculopathy, lumbosacral ohyupvT63.26 Other spondylosis with radiculopathy, lumbar region
--- OUTSIDE RECORDS SUMMARY | 2017-12-30 07:56 | XMS REPORT ---
:1945 External Reference #:[id number] Author Organization [facility] Address 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 Test Performed by: [address] [address] Desirable: <150 Borderline High: 150-199 High: [...] Provider CPT E/M Dx Office Visit 11/28/2017 [facility] Internal Medicine Anuja Garcia, 58430 M54.30 4:00p - Merary Rojo M85.80 Z85.3 M25.559 M54.9 Office Visit 11/12/2017 10:40a [facility] Internal Medicine Anuja Garcia, 74259 M54.9 - Merary Rojo K21.9 M81.0 R03.0 Z85.3 Z85.828 F33.9 Z68.36 Plan of Care Future Appointment(s):02/13/2018 1:00 pm - Anuja Garcia M.D. at [facility] Internal Medicine - Mvfdxzyzw52/31/2018 - Leah Villeda, MDM51.36 Other intervertebral disc degeneration, lumbar regionNew Xrays:CT Spine Lumbar W/OSP Lumbar Ap//Lat 2-3 ViewsSpine Entire Ap/LatNew Therapy:Physical TherapyFollow up :RV in one week after films are done. Please obtain prior DEXA scan results and previous lumbar surgery operative report.M51.17 Intvrt disc disorders w radiculopathy, lumbosacral mfyysdT59.26 Other spondylosis with radiculopathy, lumbar region
--- OUTSIDE RECORDS SUMMARY | 2017-12-30 07:56 | XMS REPORT ---
:1945 External Reference #:[id number] Author Organization [employer] Address [address] [place] [address] [place] [address] Phone [phone] Care Team Providers Name Role Phone Anuja Garcia MD Primary Care Physician Unavailable Payers Type Date Identification Numbers Payment Provider Subscriber Medicare Primary Policy Number: [id number] Medicare Radha Ferro PayID: [id number] [address] [place] [address] Medigap Part B Policy Number: [id number] [employer] Radha Ferro PayID: [id number] [employer] [address] [address] [place] [address] Problems Date Description Provider Status Onset: 11/28/2017 Personal history of primary Anuja Garcia M.D. 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 Test Performed by: [address] [address] 2 Desirable: <150 Borderline High: 150-199 High: [...] Provider CPT E/M Dx Office Visit 11/28/[address] [facility] Internal Medicine Anuja Garcia, 15647 M54.30 4:00p - Merary Rojo M85.80 Z85.3 M25.559 M54.9 Office Visit 11/12/2017 10:40a [facility] Internal Medicine Anuja Garcia, 35757 M54.9 - Merary Rojo K21.9 M81.0 R03.0 Z85.3 Z85.828 F33.9 Z68.36 Plan of Care Future Appointment(s):12/20/2017 3:00 pm - Leah Villeda MD at [facility]02/13/2018 1:00 pm - Anuja Garcia M.D. at [facility] Internal Medicine - Pwclkdrkh90/31/2018 - Leah Villeda, MDM51.36 Other intervertebral disc degeneration, lumbar regionNew Xrays:SP Lumbar Ap//Lat 2-3 ViewsSpine Entire Ap/LatNew Therapy:Physical TherapyReferral:Nakia Bennett MD, Surgery,Ortho Adult ReconFollow up:RV in one week after films are done. Please obtain prior DEXA scan results and previous lumbar surgery operative report.M51.17 Intvrt disc disorders w radiculopathy, lumbosacral toirrsO94.26 Other spondylosis with radiculopathy, lumbar region
--- OUTSIDE RECORDS SUMMARY | 2017-12-30 07:56 | XMS REPORT ---
:1945 External Reference #:[id number] Author Organization [employer] Address [address] [facility] [address] [place] [address] Phone [phone] Care Team Providers Name Role Phone Anuja Garcia MD Primary Care Physician Unavailable Payers Type Date Identification Numbers Payment Provider Subscriber Medicare Primary Policy Number: [id number] Medicare Radha Ferro PayID: [id number] [address] [place] [address] Medigap Part B Policy Number: [id number] [employer] Radha Ferro PayID: [id number] [employer] [address] [address] [place] [address] Problems Date Description Provider Status Onset: 11/28/2017 [...] Comments Marital Status 2018 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, 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 [employer] ETOH Use Drinks 3 Alcoholic Beverages Per [...] Provider Tylenol With 12/05 Active Tablets 300-30mg 120ta 1 PO 4 Anuja Codeine # bs times daily Darrel Garcia as needed for pain Calcium Plus D 11/12 Active 3 daily Anuja Darrel Garcia Escitalopram 11/12 Active Tablets 20mg 90tab 1 by mouth Anuja s every day Darrel Garcia Zithromax Z-Luis A 05/30 Active Tablets 250mg 1Pack as per [facility] directions Darrel Ferro Synthroid Active Tablets 112mcg 1 by mouth Unknown /0000 every day Prevacid Active Capsules 30mg 60cap 2 by mouth Anuja /0000 DR s every day Darrel Garcia Atorvastatin Active Tablets 40mg 1 by mouth Unknown Calcium / every day Triamterene/Hyd Active Tablets 37.5-25mg 90tab 1 by mouth Anuja rochlorothiazid s every day Darrel Garcia e Anastrozole [...] Tablets 81mg 1 by mouth Unknown /0000 every day Immunizations CPT Code Status Date Vaccine Lot # [id number] Given 11/15/2017 Zoster (Shingles) Vaccine (HZV), Recombinant, Subunit, Adjuvanted Vital Signs Date Vital Result Comment 12/20/2017 Height 61.5 inches 5'1.50" Weight 193.50 [...] protein on serum electrophoresis. Test Performed by: [address] [address] Desirable: <150 Borderline High: 150-199 High: [...] Dx Office Visit 12/10/2017 [facility] [place] [id number] M51.36 8:30a Of Moon Villeda MD M51.17 M47.26 Z98.1 Office Visit 11/28/2017 4:00p [facility] Anuja Garcia, [address] M54.30 - Merary Rojo M85.80 Z85.3 M25.559 M54.9 Office Visit 11/12/2017 10:40a [facility] Anuja Garcia, 25668 M54.9 - Merary Rojo K21.9 M81.0 R03.0 Z85.3 Z85.828 F33.9 Z68.36 Plan of Care Future Appointment(s):01/28/2018 2:00 pm - Leah Villeda MD at [facility]12/23/2017 1:00 pm - Nakia Bennett M.D. at [facility] [place]02/13/2018 1:00 pm - Anuja Garcia M.D. at [facility] [place]
[2017-12-30] MEDS ORDERED: Morphine VIAL* 10 MG/ML 1 ML VIAL IV ONE (08:03)
[2017-12-30] MEDS ORDERED: Ondansetron INJ* 2 MG/ML VIAL IV ONE (08:04)
[2017-12-30 08:19] LABS: ABS Basophils 0.1 10^3/ul (0-0.2); ABS Eosinophils 0.3 10^3/ul (0-0.6); ABS Lymphocytes 1.2 10^3/ul (1.0-4.8); ABS Monocytes 0.6 10^3/ul (0-0.8); ABS Neutrophils 4.8 10^3/ul (1.5-7.7); ABS Nucleated RBC 0 10^3/ul; Eosinophil % 3.9 % (0-6); Hematocrit 35 % (35-47); Hemoglobin 11.9 g/dl (12.0-16.0); Mean Corpuscular HGB Conc 34 g/dl (31-36); Mean Corpuscular Hemoglobin 30 pg (27-31); Mean Corpuscular Volume 88 fL (80-97); Mean Platelet Volume 7.5 um3 (7.4-10.4); Nucleated Red Blood Cells % 0; Platelet Count 347 10^3/ul (150-450); Red Blood Count 3.95 10^6/ul (4.00-5.40); Red Cell Distribution Width 14 % (10.5-15); White Blood Count 6.9 10^3/ul (3.5-10.8)
[2017-12-30 08:42] LABS: EGFR Non-African American 67.4 (>60)
--- NOTE | 2017-12-30 09:26 | RAD ---
HISTORY: WORSENING RIGHT SIDE PELVIS PAIN COMPARISONS: MRI dated December 26, 2017 TECHNIQUE: Multiple contiguous axial CT images are obtained of the pelvis, with coronal and sagittal multiplanar reconstructions, without intravenous contrast administration. FINDINGS: BONE DENSITY: Normal. BONES: Again noted is a fracture of the right iliac wing. There is minimal angulation. This is slightly impacted. This is similar to the previous MRI examination accounting for differences in technique. JOINTS: There is no arthropathy. MUSCULATURE: There is mild edema of the iliac esophagus and gluteal musculature as noted on the previous MRI. ALIGNMENT: There is no dislocation. SOFT TISSUES: Unremarkable. OTHER FINDINGS: The patient is status post laminectomy and lumbar fusion with pedicle screws and rods. There is methylmethacrylate noted within the L4 vertebral body. There is anterolateral marginal osteophyte formation with severe left and moderate right neuroforaminal narrowing at L5-S1. IMPRESSION: AGAIN NOTED IS A FRACTURE OF THE RIGHT ILIAC WING, SIMILAR TO THE MRI OF DECEMBER 26, 2017
[2017-12-30 09:45] LABS: Urine Appearance Clear; Urine Blood Negative (Negative); Urine Color Straw; Urine Ketones Negative (Negative); Urine Protein Negative (Negative); Urine Specific Gravity 1.006 (1.010-1.030); Urine Urobilinogen Negative (Negative)
[2017-12-30] MEDS ORDERED: Acetaminophen TAB* 325 MG PO PRN (11:39)
[2017-12-30] MEDS ORDERED: Ondansetron INJ* 2 MG/ML VIAL IV PRN (11:39)
[2017-12-30] MEDS ORDERED: Potassium Chlor TAB* 20 MEQ TAB.ER PO ONE (11:45)
[2017-12-30] MEDS ORDERED: Morphine INJ* 2 MG/ML 1 ML SYRINGE (TWO MG - NEW SYRINGE VERSION) IV PRN (11:56)
[2017-12-30] MEDS: Heparin VIAL(*) 5000 UNITS/ML VIAL (FIVE THOUSAND) SUBCUT SCH ×2 (12:32→22:19)
[2017-12-30] MEDS: oxyCODONE/Acetamin 5/325 MG* TAB PO PRN ×2 (12:33→19:38)
[2017-12-30] MEDS: predniSONE TAB* 20 MG PO SCH (12:33)
[2017-12-30] MEDS: Gabapentin CAP(*) 100 MG PO SCH ×2 (12:44→20:07)
--- NOTE | 2017-12-30 13:34 | HP ---
CC: Dr. Garcia; Dr. Villeda; Dr. Fernandez; Dr. Saleem; Dr. Bennett * HISTORY AND PHYSICAL: DATE OF ADMISSION: 12/30/17 PRIMARY CARE PROVIDER: Dr. Garcia. ATTENDING PHYSICIAN WHILE IN HOSPITAL: Dr. Rogers Yost * (report dictated by Cooper Jean NP) CONSULTING ORTHOPEDIST: Dr. Saleem. CONSULTING NEUROSURGEON: Dr. Fernandez. CHIEF COMPLAINT: Right hip pain and right leg pain. HISTORY OF PRESENT ILLNESS: Ms. Ferro is a 72-year-old female patient who carries a history of hypothyroidism, GERD, depression, hyperlipidemia, breast cancer. She has a history of neuropathy bilaterally and also carries a history of spinal stenosis and osteopenia. She comes in today. She says that 3 weeks ago she fell here in the hospital while she was getting some outpatient lab work done. She developed pain in her right hip. She underwent imaging and was found to have a right iliac wing fracture. She said she has been having intermittent pain, but was able to control it. She was following with Dr. Bennett actually. However, last night, she was turning in bed and then suddenly she started having pain in that hip, but the pain was a little different, she said it was shooting now down the front of her right leg. She denied any worsening numbness or weakness, but she is stating that she can barely lift the leg because it causes exquisite pain. She says that she has not had any trauma to that extremity since 3 weeks ago. She did fall a few months ago down in [place] when she was relocating is what the patient had told me. She states that she has not had any bowel or bladder incontinence. Denies any saddle anesthesia , but she says that the pain was just getting too much, she could not stand or put weight on it, she could not really walk. Her son was out of town and unfortunately, she did not what to do, so she came into the ER to be further evaluated. She denies any recent fevers or chills. There has been no cough. There is no vomiting or diarrhea. No chest pain or shortness of breath. She says that she has been walking with a walker, but today she cannot put any weight on that leg because it hurts way too much. She was evaluated in the ED. Because of the exquisite pain, we were asked to evaluate for admission. She has had a lumbar MRI just about a month ago, which does show significant central canal stenosis at L3-4 with right-sided disk protrusion. PAST MEDICAL HISTORY: Significant for: 1. Hypothyroidism. 2. GERD. 3. Depression. 4. Neuropathy. 5. Osteopenia. 6. Hyperlipidemia. 7. Breast cancer. 8. Hypertension. PAST SURGICAL HISTORY: She has had fusion at L4-L5. She has had right wrist surgery and she has had a Wayne fundoplication. HOME MEDICATIONS: I did review these with the patient. 1. Percocet 1 tablet p.o. t.i.d. as needed. 2. Hydrochlorothiazide 12.5 mg p.o. daily. 3. Melatonin 10 mg at bedtime. 4. Synthroid 125 mcg p.o. daily. 5. Prevacid 60 mg p.o. b.i.d. 6. Krill oil 2 capsules p.o. b.i.d. 7. Ibuprofen 400 mg p.o. every 6 hours as needed. 8. Lexapro 20 mg p.o. daily. 9. Cymbalta. She started 20 mg daily. 10. Calcium carbonate 1 tablet p.o. daily. 11. Lipitor 40 mg daily. 12. Arimidex 1 mg p.o. daily. 13. Amitriptyline 75 mg p.o. at bedtime. 14. Flexeril 10 mg p.o. t.i.d. ALLERGIES TO MEDICATIONS: Include SULFA DRUGS. FAMILY HISTORY: Mother had a history of COPD and father had a history of lung cancer. SOCIAL HISTORY: She does not smoke. She does drink rarely, has a glass of wine. Surrogate decision maker is her son, Karson Ferro. REVIEW OF SYSTEMS: There is no documented fever. She denies having any significant weight change. There is no double vision. She denies having any ear discharge. There is no rhinorrhea. She denies having any sore throat. No thyroid enlargement. Denies having any chest pain. There is no orthopnea. There is no nocturnal dyspnea. There was no abdominal pain. There was no nausea , no vomiting. No dysuria, no frequency. No seizure, no loss of consciousness. No pruritus and no skin ulcerations. Review of 14 systems was completed, all others negative. PHYSICAL EXAMINATION GENERAL: At this time, Ms. Ferro is a 72-year-old female patient. She is sitting in the ED stretcher. She does not appear to be in any acute distress. She is well nourished and well developed. VITAL SIGNS: Blood pressure 128/86, pulse 76, respirations 18, O2 sat 97%, temperature 98.5. HEENT: Head: Atraumatic and normocephalic. Eyes: EOMs are intact. Sclerae anicteric and not pale. Throat: Oral mucosa appears to be moist. No oropharyngeal erythema. NECK: Supple. LUNGS: Clear to auscultation bilaterally. No wheezes, rales, or rhonchi. HEART: Sounds S1, S2. She had a regular rate and rhythm. No murmurs, rubs, or gallops. ABDOMEN: Soft, flat, nontender. Bowel sounds were present. EXTREMITIES: Pulses were 2+ throughout. She has a 5/5 strength in the upper extremities. The lower extremities, she has a positive straight leg test on the right at about 10 degrees. She has 5/5 strength in dorsi and plantarflexion to bilateral lower extremities. She had 5/5 strength in flexion and extension at the knees. On the left leg, she had 5/5 strength at hip flexion. On the right leg, she cannot do it, when she goes to lift the right leg and any resistance causes exquisite pain. She is able to do it, but it is limited due to pain in the hip. NEUROLOGICAL: She is awake, alert, and oriented x3. Speech is clear. Tongue is midline. She had no gross focal deficits. No focal weaknesses were appreciated on my exam. SKIN: Intact. DIAGNOSTIC STUDIES/LAB DATA: Her labs reveal a WBC of 6.9, RBC of 3.95, hemoglobin of 11.9, hematocrit of 35, and her platelet count was 347. Sodium was 135, potassium was 3.4, chloride of 99, bicarb 31, BUN 15, creatinine of 0.83, glucose 84. Total bili 0.3, AST 20, ALT 14, alk phos 109. CRP was 16. Lipase less than 10. Urine was obtained and was negative. She had a pelvis CT obtained today which revealed again noted a right iliac wing fracture similar to the MRI on 12/26/17. She had a hip MRI done which revealed and this was done 4 days ago, mildly impacted fracture of the right iliac wing with bone marrow edema and interstitial edema within the adjacent gluteus minimus and medius musculature, bone marrow edema extends from the iliac crest superiorly to the anteroinferior iliac spine. Inferiorly, no underlying pathologic bone lesion evident. Negative for right femoral neck fracture. She had a lumbar spine CT, which revealed status post laminectomy and spinal fusion, scoliosis, osteopenia, degenerative disk disease and osteoarthritis, severe narrowing of the central canal at L3-4. There is multilevel neural foraminal narrowing as described above. She did have a lumbar spine MRI obtained, which showed status post spinal fusion , degenerative disk and osteoarthritis. There is severe narrowing of the central canal at L3-4 with a right-sided disk protrusion. There is multilevel neural foraminal narrowing as described above. Old medical records were reviewed. ASSESSMENT AND PLAN: Ms. Ferro is a 72-year-old female patient coming into the ED today with complaints of pain starting in her right hip and going down the right leg anteriorly. There was concern because the pain was quite severe. We were asked to evaluate for admission. She will be admitted under inpatient status for: 1. Lumbar radiculopathy. Again, she is not having any new focal neuro deficits , but she is having exquisite pain, she has a positive straight leg test. Because she just had a recent MRI, I have not ordered another one, I wanted to get input from Neurosurgery. I have a call placed out to Dr. Fernandez and his team. My plan will be to start her on steroids to give her a burst dose and start her on 60. We can do that with a quick taper. I have put her on Flexeril p.r.n., p.r.n. Percocet, in addition to this p.r.n. morphine. I have ordered a Lidoderm patch. I have ordered PT to help and again, we will get Neurosurgery input. She also does have a right iliac fracture, which may be contributing to some of this pain, but again with the shooting pain that to me sounds more lumbar, but I would like to get the input of Orthopedics and Neurosurgery, so I have a call out to the Orthopedics as well. 2. Right iliac wing fracture. Again, we will continue pain control, in addition to this, we will get in touch with on-call orthopedist. I have ordered PT. 3. Hypothyroidism. Continue her Synthroid. 4. Gastroesophageal reflux disease. Continue PPI therapy. 5. Depression. Continue with her current medical regimen and supportive care. 6. Hyperlipidemia. Continue statin therapy. 7. History of breast cancer. Continue her meds as prescribed. 8. History of neuropathy. Continue meds as prescribed. 9. Osteopenia. She can follow up with her PCP. 10. DVT prophylaxis: She is high risk. We will place her on heparin subcu. 11. Code status: She is a full code. 12. Fluids, electrolytes, and nutrition: She can have a regular diet. TIME SPENT: Time spent on the admission was 60 minutes, greater than half the time was spent [id number] with the patient obtaining my history and physical, other half time was spent going over the plan of care with the patient and implementing the plan of care. I discussed the plan of care with my attending, Dr. Yost, he is in agreement. COOPER JEAN, AUTOMATIC SPINNING LATHE SETTER [id number]/CPS #: [id number] MARIA A
[2017-12-30 13:38] LABS: INR 0.88 (0.77-1.02)
[2017-12-30] MEDS: Omeprazole CAP* 20 MG PO SCH (16:40)
[2017-12-30] MEDS: Gaviscon CHEW TAB* 1 TAB PO PRN (16:52)
[2017-12-30] MEDS: Cyclobenzaprine TAB* 10 MG PO PRN (19:35)
[2017-12-30] MEDS: Lidocaine Patch REMOVE* 1 NOTE MISC SCH (19:52)
[2017-12-30] MEDS: Amitriptyline TAB* 25 MG PO SCH (20:03)
[2017-12-30] MEDS ORDERED: Omeprazole CAP* 20 MG PO SCH (21:00)
[2017-12-30] MEDS ORDERED: Melatonin 3 MG TAB PO SCH (21:00)
--- NOTE | 2017-12-30 21:02 | CONS ---
CONSULTATION REPORT: DATE OF CONSULT: 12/30/17 HISTORY OF PRESENT ILLNESS: Ms. Ferro is a very pleasant 72-year-old female who has had significant lower extremity neuropathy and history of sciatic pain, more or less off and on for chronic basis. She did have a decompression and a lower lumbar fixation with pedicle screws. She has demonstrated canal stenosis previously on an MRI approximately 4 weeks ago at the L3-L4 level. This will be just above the pedicle screw fixation. I do not have the MRI available today. However, she also fell 3 weeks ago and sustained a right iliac wing fracture. This was definitely not involving the hip joint or the acetabulum itself, and CT scan today has confirmed that. However, her pain for the last 48 hours has been increasing and it is described by the patient as coursing around the right buttock and then to the anterior thigh. She states she is really unable to bear weight now and has pain with any motion of the right lower extremity. PAST MEDICAL HISTORY: Her medical issues are well outlined in the chart including hypothyroidism, reflux, osteopenia, history of breast cancer, some hypertension. MEDICATIONS: Medicines also outlined in the chart. REVIEW OF SYSTEMS: She denies any pertinent symptoms on review. PHYSICAL EXAM: Ms. Ferro is a bright, alert, 72-year-old woman, who is lying supine in the hospital bed, in no acute distress. She is able to dorsiflex and planter flex the toes quite well, has a warm sensate foot. Any log rolling of the right lower extremity is moderately painful. When I try to passively flex her right hip, she has some extreme pain in the lateral flank area and then along the anterior thigh. She is really unable to actively flex the hip, however, doing a straight leg raise. She is not particularly tender at the trochanteric bursa, but she is tender over the anterior iliac crest. DIAGNOSTIC STUDIES: Her CT scan is carefully reviewed today and it does reveal the iliac crest fracture, which certainly will explain any pain with attempted flexion of the hip given the insertion of the some of the hip flexors. The femoral neck and head area looks clean. I do not see any crack in the tubercle. There maybe a small chip at the corner of the acetabulum which may not be acute, it may have been sustained when she broke her iliac wing, but it does not explain the severe pain she has with range of motion. I do not see any posterior pelvic disruption. IMPRESSION AND PLAN: Evidently, she has had a lumbar MRI. I do not have access to that but she will be evaluated by Neurosurgery and Ms. Ferro volunteers that she feels that most of this pain at this point may be nerve related, in other words it simulates some of the severe sciatic pain she has had before. The higher disk level would explain more the anterior thigh pain. If she is going to have another lumbar MRI, I would recommend one more MRI cut through the femoral neck area just to be sure that we do not see any activity in that site. If so, then I would recommend aggressive followup care with the neurosurgical team. [id number]/[facility] #: [id number] MARIA A
[2017-12-30] MEDS: Melatonin 3 MG TAB PO SCH (22:18)
[2017-12-31] MEDS: oxyCODONE/Acetamin 5/325 MG* TAB PO PRN ×4 (04:31→22:20)
[2017-12-31] MEDS: Gaviscon CHEW TAB* 1 TAB PO PRN ×2 (04:32→20:23)
[2017-12-31] MEDS: Levothyroxine TAB* 125 MCG TAB PO SCH (06:56)
[2017-12-31] MEDS: Heparin VIAL(*) 5000 UNITS/ML VIAL (FIVE THOUSAND) SUBCUT SCH ×3 (06:56→22:18)
[2017-12-31 06:57] LABS: ABS Basophils 0.1 10^3/ul (0-0.2); ABS Eosinophils 0 10^3/ul (0-0.6); ABS Lymphocytes 1.3 10^3/ul (1.0-4.8); ABS Monocytes 0.7 10^3/ul (0-0.8); ABS Neutrophils 6.1 10^3/ul (1.5-7.7); ABS Nucleated RBC 0 10^3/ul; Eosinophil % 0 % (0-6); Hematocrit 33 % (35-47); Hemoglobin 11.3 g/dl (12.0-16.0); Lymphocyte % 16.3 % (25-47); Mean Corpuscular HGB Conc 35 g/dl (31-36); Mean Corpuscular Hemoglobin 30 pg (27-31); Mean Corpuscular Volume 88 fL (80-97); Mean Platelet Volume 7.5 um3 (7.4-10.4); Nucleated Red Blood Cells % 0.1; Platelet Count 350 10^3/ul (150-450); Red Blood Count 3.73 10^6/ul (4.00-5.40); Red Cell Distribution Width 14 % (10.5-15); White Blood Count 8.2 10^3/ul (3.5-10.8)
[2017-12-31 07:02] LABS: INR 0.86 (0.77-1.02)
[2017-12-31 07:14] LABS: EGFR Non-African American 69.3 (>60)
--- NOTE | 2017-12-31 07:50 | RAD ---
HISTORY: lumbar radiculopathy COMPARISONS: MRI dated December 04, 2017, CT dated December 12, 2017, CT of the pelvis dated December 30, 2017 TECHNIQUE: The following sequences were obtained of the lumbar spine: Sagittal and axial T1- and T2-weighted images, coronal T2-weighted images, and sagittal STIR images. FINDINGS: The study is limited by patient motion artifact. SPINAL CORD, CONUS, AND CAUDA EQUINA: The visualized spinal cord, conus, and cauda equina are normal in caliber, position, and signal intensity. ALIGNMENT: There is mild levoscoliotic curvature of the spine. There is trace retrolisthesis of L1 on L2. VERTEBRAL BODIES: There is a chronic compression deformity of L1. There is low T1 signal consistent with methylmethacrylate status post percutaneous vertebral augmentation. Similarly, there is low T1 signal consistent with methylmethacrylate at L4. The patient is status post laminectomy with pedicle screws at L4 and L5. There are Modic type II reactive end plate changes at T11-T12. JOINTS: There is facet osteoarthritis most pronounced along the lower lumbar spine. MUSCULATURE: There is moderate fatty infiltration. INTERVERTEBRAL DISCS: There is diffuse loss of intervertebral disc height and T2 signal throughout the spine. AXIAL IMAGES: T11-T12: There is a mild disc bulge. There is a small, left lateral recess disc protrusion measuring 0.2 cm in depth. There is mild narrowing of the central canal. There is no significant neuroforaminal narrowing. T12-L1: There is ligamentous hypertrophy with minimal retropulsion of the superior endplate of L1. There is mild narrowing of the central canal. There is no significant neuroforaminal narrowing. L1-L2: There is a broad-based disc bulge/rolled disc. There is bilateral facet hypertrophy. There is mild bilateral neuroforaminal narrowing. There is no significant central canal stenosis. L2-L3: There is bilateral facet hypertrophy. There is mild bilateral neuroforaminal narrowing. There is no significant central canal stenosis. L3-L4: There is bilateral facet hypertrophy with ligamentous hypertrophy. There is a broad-based disc bulge with an annular fissure along the left lateral recess. There is a right foraminal disc protrusion measuring 0.7 cm in depth. There is severe bilateral neuroforaminal narrowing. There is severe narrowing of the central canal. There is a chronic appearing fracture of the spinous process of L3. L4-L5: A laminectomy defect is noted. There is bilateral facet hypertrophy. Evaluation of the neural foramina is limited by magnetic susceptibility artifact. There is moderate bilateral neuroforaminal narrowing. L5-S1: There is bilateral facet hypertrophy. There is marginal osteophyte formation at the neural foramina bilaterally. There is moderate bilateral neuroforaminal narrowing. There is no significant central canal stenosis. SOFT TISSUES: The visualized soft tissues of the abdomen are unremarkable. OTHER: None. IMPRESSION: 1. DEGENERATIVE DISC DISEASE AND OSTEOARTHRITIS. 2. THERE IS SEVERE NARROWING OF THE CENTRAL CANAL AT L3-L4. 3. THERE IS MULTILEVEL NEUROFORAMINAL NARROWING NOTED ABOVE. 4. THERE IS A CHRONIC COMPRESSION DEFORMITY OF L1. 5. THE PATIENT IS STATUS POST LAMINECTOMY AND SPINAL FUSION
[2017-12-31] MEDS: Cyclobenzaprine TAB* 10 MG PO PRN ×3 (08:01→19:49)
--- NOTE | 2017-12-31 08:20 | RAD ---
INDICATION: Right hip pain. COMPARISON: Comparison is made with a prior MRI of the pelvis from December 26, [address] of the pelvis from December 30, 2017. TECHNIQUE: Axial, sagittal and coronal T1 and T2-weighted images of the hips were obtained. FINDINGS: There is a slightly displaced fracture of the right iliac wing which is partially visualized on this study and has been previously described. There is increased angulation of the fracture fragments. There is bone marrow edema present within the right iliopsoas muscle and gluteus minimus and medius muscles which has progressed from the prior study. There are likely partial tears of the gluteus minimus and medius muscles. The hip joint spaces appear maintained there is a crescent-shaped area of subchondral bone marrow edema present in the left femoral head suspicious for either a stress fracture or avascular necrosis. This appears slightly more prominent than on the prior study. The visualized portion of the small bowel and colon appear nondistended. No free intraperitoneal fluid is seen. IMPRESSION: 1. SLIGHTLY DISPLACED FRACTURE OF THE RIGHT ANTERIOR ILIAC WING PREVIOUSLY NOTED. THERE IS INCREASED ANGULATION OF THE FRACTURE FRAGMENTS. 2. THERE IS PROGRESSIVE EDEMA WITHIN THE RIGHT ILIOPSOAS, RIGHT GLUTEUS MEDIUS AND MINIMUS MUSCLES. THERE ARE SUGGESTION OF PARTIAL TEARS OF THE GLUTEUS MEDIUS MEDIUS AND MINIMUS MUSCLES. 3. CRESCENT SHAPED AREA OF SUBCHONDRAL MARROW EDEMA IN THE LEFT FEMORAL HEAD SUGGESTIVE OF EITHER A STRESS FRACTURE OR AVASCULAR NECROSIS. THIS IS MILDLY MORE PROMINENT THAN ON THE PRIOR MRI STUDY.
[2017-12-31] MEDS: CMC:Anastrozole (NF) 1 MG TAB PO SCH (09:35)
[2017-12-31] MEDS: Hydrochlorothiazide TAB* 25 MG PO SCH (09:35)
[2017-12-31] MEDS: Lidocaine PATCH 5%* 1 PATCH TRANSDERM SCH (09:35)
[2017-12-31] MEDS: Atorvastatin* 40 MG TAB PO SCH (09:37)
[2017-12-31] MEDS: Gabapentin CAP(*) 100 MG PO SCH ×3 (09:37→20:06)
[2017-12-31] MEDS: CMC:Escitalopram (NF) 10 MG TAB PO SCH (09:37)
[2017-12-31] MEDS: predniSONE TAB* 20 MG PO SCH (09:37)
[2017-12-31] MEDS: Omeprazole CAP* 20 MG PO SCH ×2 (09:38→20:08)
--- NOTE | 2017-12-31 14:38 | PN ---
Subjective Date of Service: 12/31/17 Interval History: Pain sl better today, could be due to getting more analgesics than before. No BM since admission. Objective Active Medications: Acetaminophen (Tylenol Tab*) 650 mg PO Q4H PRN PRN Reason: FEVER/PAIN Last Admin: 12/30/17 16:58 Dose: 650 mg Al Hydroxide/Mg Trisilicate (Gaviscon Chew Tab*) 1 tab.chew PO Q6H PRN PRN Reason: INDIGESTION Last Admin: 12/31/17 04:32 Dose: 1 tab.chew Amitriptyline HCl (Elavil Tab*) 75 mg PO BEDTIME [facility] Last Admin: 12/30/17 20:03 Dose: 75 mg Anastrozole (Arimidex (Nf)) 1 mg PO DAILY [facility] Last Admin: 12/31/17 09:35 Dose: 1 mg Atorvastatin Calcium (Lipitor*) 40 mg PO DAILY [facility] Last Admin: 12/31/17 09:37 Dose: 40 mg Cyclobenzaprine HCl (Flexeril Tab*) 10 mg PO TID PRN PRN Reason: SPASMS Last Admin: 12/31/17 12:58 Dose: 10 mg Escitalopram Oxalate (Lexapro (Nf)) 20 mg PO DAILY [facility] Last Admin: 12/31/17 09:37 Dose: 20 mg Gabapentin (Neurontin Cap(*)) 100 mg PO TID [facility] Last Admin: 12/31/17 09:37 Dose: 100 mg Heparin Sodium (Porcine) (Heparin Vial(*)) 5,000 units SUBCUT Q8HR [facility] Last Admin: 12/31/17 06:56 Dose: 5,000 units Hydrochlorothiazide (Hydrodiuril Tab*) 12.5 mg PO DAILY [facility] Last Admin: 12/31/17 09:35 Dose: 12.5 mg Levothyroxine Sodium (Synthroid Tab*) 125 mcg PO DAILY@0600 [facility] Last Admin: 12/31/17 06:56 Dose: 125 mcg Lidocaine (Lidoderm 5% Patch*) 1 patch TRANSDERM DAILY [facility] Last Admin: 12/31/17 09:35 Dose: 1 patch Melatonin (Melatonin) 9 mg PO BEDTIME [facility] Last Admin: 12/30/17 22:18 Dose: 9 mg Morphine Sulfate (Morphine Inj ((Syringe))*) 2 mg IV Q4H PRN PRN Reason: PAIN - MILD Omeprazole (Prilosec Cap*) 40 mg PO 0900,2100 [facility]; Protocol Last Admin: 12/31/17 09:38 Dose: 40 mg Ondansetron HCl (Zofran Inj*) 4 mg IV Q6H PRN PRN Reason: NAUSEA Oxycodone/Acetaminophen (Percocet 5/325 Tab*) 2 tab PO Q6H PRN PRN Reason: PAIN Last Admin: 12/31/17 10:29 Dose: 2 tab Pharmacy Profile Note (Lidocaine Patch Remove*) 1 note N/A 2099 [facility] Last Admin: 12/30/17 19:52 Dose: Not Given Prednisone (Deltasone Tab*) 40 mg PO DAILY [facility] Vital Signs - 8 hr 12/31/17 12/31/17 12/31/17 08:01 09:11 09:37 Respiratory 18 16 16 Rate 12/31/17 12/31/17 12/31/17 10:19 10:29 12:58 Respiratory 20 16 15 Rate Oxygen Devices in Use Now: None Appearance: Alert, supine in bed. In good spirits. Looks comfortable at rest. Eyes: No Scleral Icterus Respiratory: Symmetrical Chest Expansion and Respiratory Effort, Clear to Auscultation, Clear to Percussion Cardiovascular: NL Sounds; No Murmurs; No JVD, RRR, No Edema, - Extremities: No Edema, No Clubbing, Cyanosis, - Skin: No Rash or Ulcers, No Nodules or Sclerosis, - Neurological: Alert and Oriented x 3, - - feet numb only to ankles. foot dorsiflexion and plantar flexion nl BL. Unable to lift R leg off bed due to pain, can easily lift L leg off bed. Result Diagrams: 12/31/17 06:39 12/31/17 06:39 Assess/Plan/Problems-Billing Assessment: - Patient Problems (1) Fracture of iliac crest Current Visit: Yes Status: Acute Code(s): S32.309A - UNSP FRACTURE OF UNSP ILIUM, INIT ENCNTR FOR CLOSED FRACTURE SNOMED Code(s): 654679810 Comment: Continue PT, analgeics. Bone scan ordered. Taper prednisone. (2) Intervertebral disc protrusion Current Visit: Yes Status: Acute Code(s): RLS3505 - SNOMED Code(s): 20274724 Comment: 0.7 cm disc protrusion L3-L4 framina, severe BL foraminal narrowin, severe narrowing of the central canal. Discussed with Dr. Vick. He would consider extending her lumbar fusion after shome healing of the iliac fracture. (3) Breast CA Current Visit: Yes Status: Acute Code(s): C50.919 - MALIGNANT NEOPLASM OF UNSP SITE OF UNSPECIFIED FEMALE BREAST SNOMED Code(s): 001449770 Comment: Had lumpectomy/RT, now 4.5 yrs into her anastrazole tx. (4) Hypothyroid Current Visit: Yes Status: Acute Code(s): E03.9 - HYPOTHYROIDISM, UNSPECIFIED SNOMED Code(s): 67687463 Comment: Add on TSH requested.
--- NOTE | 2017-12-31 14:55 | PN ---
PROGRESS NOTE: DATE OF SERVICE: 12/30/17. TIME: 1400 Ms. Ferro had the repeat MRI of the right hip and the lumbar spine. Her pain is pretty much ongoing, radiating around the flank to the anterior thigh. The MRI is strongly suggestive of pressure on the nerve roots, which might explain this right-sided radicular pain. The hip itself is clean without any evidence of fracture. No change really except the iliac crest area is not healing promptly, but there certainly is vigorous local edema. My suspicion is that most of this pain is neurological and I would recommend that Neurosurgery evaluate in the near future for possible intervention. [id number]/[id number] #: [id number] MARIA A
--- NOTE | 2017-12-31 19:49 | CONS ---
CONSULTATION REPORT: DATE OF CONSULT: 12/30/17 HISTORY OF PRESENT ILLNESS: The patient is a very pleasant 72-year-old, right- handed female with history of hypothyroidism, GERD, depression, hyperlipidemia, breast cancer, who was recently evaluated in our office with findings consistent with adjacent level disease. In short, the patient has history of a previous fall and previous lumbar surgical intervention 2 years ago. At that time, she had an L4-L5 TLIF with L4 kyphoplasty as well as an L1 kyphoplasty. The patient moved recently to [place] and started having back pain radiating to the right lower extremity after exercising on the stationary bike. She started physical therapy and then she was referred for an MRI, which revealed degenerative disk disease and postoperative changes with asymmetric collapse of the L3-L4 disk space with L3-L4 stenosis and right L3-L4 neural foraminal stenosis and foraminal disk protrusion with also a left lumbar curve in the apex at L3-L4. The patient had extensive workup including CT of the lumbar spine, flexion-extension x-rays and scoliosis views. She was considered to be a candidate for surgical intervention in the form of extension of her previous fusion, but because of localized pain in the right hip area, she was scheduling her followup with Dr. Bennett. The patient, of note, had a fall after her MRI while being in the hospital, she was diagnosed with a right iliac wing fracture and was treated conservatively. She was admitted to the hospital because of acute exacerbation of her right hip pain after she reported twisting her back. I was requested to see the patient by the Internal Medicine team who currently admitted the patient for pain control. The patient reports that she twisted her back the day prior to her admission and started experiencing significant back pain radiating to the right lower extremity to the right groin and to the right thigh and was unable to bear weight and ambulate. She reports that she has no focal weakness of her upper or lower extremities. She denies any new onset of numbness except the chronic numbness in both lower extremities that was diagnosed a few years ago as peripheral neuropathy. She is not able to ambulate because of pain. She denies urinary or GI incontinence. The patient is retired. She lives alone and she recently moved to [place] to be close to her son, Dr. Ferro. PAST MEDICAL HISTORY: Hypothyroidism, GERD, depression, neuropathy, osteopenia , hyperlipidemia, breast cancer, hypertension. PAST SURGICAL HISTORY: The patient had a history of TLIF at L4-L5. She also had kyphoplasty at L4 and L1. She has repair of right wrist fracture and also Wayne fundoplication. HOME MEDICATIONS: 1. Percocet. 2. Hydrochlorothiazide. 3. Melatonin. 4. Synthroid. 5. Prevacid. 6. Krill oil. 7. Ibuprofen. 8. Lexapro. 9. Cymbalta. 10. Calcium. 11. Lipitor. 12. Arimidex. 13. Amitriptyline. 14. Flexeril. ALLERGIES: The patient is allergic to SULFA. FAMILY HISTORY: COPD and lung cancer. SOCIAL HISTORY: Tobacco negative. Alcohol occasionally. Recreational drug use negative. The patient's surrogate decision maker is her son, Dr. Karson Ferro. PHYSICAL EXAM: The patient is not in acute distress. She is resting comfortably on the bed. She has no tenderness to palpation of the thoracic or lumbar spine. She has free range of motion of cervical spine. She is awake, alert, oriented x3. Her pupils are equal and reactive. Cranial nerves II through XII are grossly intact. Motor: 4-5/5 in all extremities with exception of the right lower extremity, which is 4-/5, possibly antalgic especially in her hip flexion or in elevation of her right lower extremity, although in isolation she has good strength in all muscle groups. Sensory is grossly intact to light touch. Deep tendon reflexes +1 bilaterally. No clonus. No Babinski. Lynn's negative. Straight leg test negative. The patient does have pain with palpation of the right hip and she is tender to palpation in the right anterosuperior iliac spine. DIAGNOSTIC STUDIES/LAB DATA: The patient had a repeat MRI of her lumbar spine that revealed again postoperative changes at L4-L5 with significant stenosis at L3-L4 and right neural foraminal stenosis with intraforaminal disk herniation as well as L1 kyphoplasty. There is also degenerative disk disease at L5-S1. The findings are not different compared to the previous MRI approximately 1 month ago and this was also confirmed with Dr. Arndt. The patient had an MRI of her right hip as well as a CT of her pelvis that revealed right iliac wing fracture. ASSESSMENT: The patient is a very pleasant 72-year-old right-handed female with multiple medical history with adjacent level disease at L3-L4 and right iliac wing fracture. PLAN: The patient at this point has significant difficulties with daily activities. She has dual pathology that could be overlapping and she may need to have the proposed surgical intervention of her lumbar spine for the right L3- L4 TLIF and extension of the fusion, but at this point, in my opinion, based on the stability of her MRI findings and the lack of sensory deficits or profound motor weakness, I think that most of her symptoms originate from her iliac crest fracture. We would defer her surgical intervention for her spinal disease for now. We will discuss again with the primary team and the orthopedic team and finalize the plan. Full instructions given to the patient. Thank you for allowing us to participate in the care of this patient. Please do not hesitate to contact our office in case you have any further questions or concerns regarding the care of this patient. [id number]/CPS #: [id number] MARIA A
[2017-12-31] MEDS: Polyethylene Glycol 3350* 17 GM PACKET PO SCH (20:09)
[2017-12-31] MEDS: Amitriptyline TAB* 25 MG PO SCH (22:19)
[2017-12-31] MEDS: Melatonin 3 MG TAB PO SCH (22:19)
[2017-12-31] MEDS: Lidocaine Patch REMOVE* 1 NOTE MISC SCH (22:27)
[2018-01-01] MEDS: Gaviscon CHEW TAB* 1 TAB PO PRN (01:39)
[2018-01-01] MEDS: Heparin VIAL(*) 5000 UNITS/ML VIAL (FIVE THOUSAND) SUBCUT SCH ×3 (06:31→20:27)
[2018-01-01] MEDS: Levothyroxine TAB* 125 MCG TAB PO SCH (06:31)
[2018-01-01] MEDS: oxyCODONE/Acetamin 5/325 MG* TAB PO PRN ×2 (08:10→12:53)
[2018-01-01] MEDS: Cyclobenzaprine TAB* 10 MG PO PRN ×3 (08:11→23:13)
[2018-01-01] MEDS: Atorvastatin* 40 MG TAB PO SCH (08:12)
[2018-01-01] MEDS: CMC:Escitalopram (NF) 10 MG TAB PO SCH (08:12)
[2018-01-01] MEDS: Gabapentin CAP(*) 100 MG PO SCH ×3 (08:13→20:26)
[2018-01-01] MEDS: Omeprazole CAP* 20 MG PO SCH ×2 (08:13→20:27)
[2018-01-01] MEDS: Hydrochlorothiazide TAB* 25 MG PO SCH (08:13)
[2018-01-01] MEDS: Lidocaine PATCH 5%* 1 PATCH TRANSDERM SCH (08:15)
[2018-01-01] MEDS: CMC:Anastrozole (NF) 1 MG TAB PO SCH (08:15)
[2018-01-01] MEDS: Polyethylene Glycol 3350* 17 GM PACKET PO SCH ×2 (08:23→20:27)
[2018-01-01] MEDS ORDERED: predniSONE TAB* 20 MG PO SCH (09:00)
--- NOTE | 2018-01-01 11:47 | RAD ---
INDICATION: Right iliac fracture, history of breast cancer. Comparison: Comparison is made with a prior CT of the lumbar spine from December 12, [address] of the pelvis from December 30, 2017. Correlation is also made with a prior MRI of the lumbar spine from December 30, 2017. Technique: The patient was given an intravenous injection of 20.7 mCi of technetium 99m HDP, and the whole body was imaged in both the anterior and posterior projections. FINDINGS: There is intense abnormal increased activity involving the anterior aspect of the right iliac bone correlating with the previous described fracture. There is mild nonspecific increased activity in the lower dorsal and lumbar spine which is likely accounted for by the patient's known compression fractures, postsurgical changes, degenerative disc disease and facet osteoarthritis. There is moderate activity within the left knee and mild to moderate activity within the ankles and feet most consistent with arthritic change. There is activity within the region of the paranasal sinuses suggestive of sinusitis. There is normal bilateral renal activity. IMPRESSION: NO SPECIFIC EVIDENCE FOR METASTATIC DISEASE. CPT II Codes: 3570F
[2018-01-01] MEDS ORDERED: Magnesium CITRATE* 300 ML BTL PO ONE (13:07)
--- NOTE | 2018-01-01 13:14 | PN ---
Subjective Date of Service: 01/01/18 Interval History: Pain same or slightly better today. She was able to transfer from her bed to a chair about 5 hrs after her dose of oxycodone/APAP. Walks to [place]. No BM yet. Appetite OK. Sleeps well. Objective Active Medications: Acetaminophen (Tylenol Tab*) 650 mg PO Q4H PRN PRN Reason: FEVER/PAIN Last Admin: 12/30/17 16:58 Dose: 650 mg Al Hydroxide/Mg Trisilicate (Gaviscon Chew Tab*) 1 tab.chew PO Q6H PRN PRN Reason: INDIGESTION Last Admin: 01/01/18 01:39 Dose: 1 tab.chew Amitriptyline HCl (Elavil Tab*) 75 mg PO BEDTIME [facility] Last Admin: 12/31/17 22:19 Dose: 75 mg Anastrozole (Arimidex (Nf)) 1 mg PO DAILY [facility] Last Admin: 01/01/18 08:15 Dose: 1 mg Atorvastatin Calcium (Lipitor*) 40 mg PO DAILY [facility] Last Admin: 01/01/18 08:12 Dose: 40 mg Cyclobenzaprine HCl (Flexeril Tab*) 10 mg PO TID PRN PRN Reason: SPASMS Last Admin: 01/01/18 08:11 Dose: 10 mg Escitalopram Oxalate (Lexapro (Nf)) 20 mg PO DAILY [facility] Last Admin: 01/01/18 08:12 Dose: 20 mg Gabapentin (Neurontin Cap(*)) 100 mg PO TID [facility] Last Admin: 01/01/18 08:13 Dose: 100 mg Heparin Sodium (Porcine) (Heparin Vial(*)) 5,000 units SUBCUT Q8HR [facility] Last Admin: 01/01/18 06:31 Dose: 5,000 units Hydrochlorothiazide (Hydrodiuril Tab*) 12.5 mg PO DAILY [facility] Last Admin: 01/01/18 08:13 Dose: 12.5 mg Levothyroxine Sodium (Synthroid Tab*) 125 mcg PO DAILY@0600 [facility] Last Admin: 01/01/18 06:31 Dose: 125 mcg Lidocaine (Lidoderm 5% Patch*) 1 patch TRANSDERM DAILY [facility] Last Admin: 01/01/18 08:15 Dose: 1 patch Magnesium Citrate (Citrate Of Magnesia*) 300 ml PO ONCE ONE Stop: 08/22/18 13:08 Melatonin (Melatonin) 9 mg PO BEDTIME [facility] Last Admin: 12/31/17 22:19 Dose: 9 mg Omeprazole (Prilosec Cap*) 40 mg PO 0900,2099 [facility]; Protocol Last Admin: 01/01/18 08:13 Dose: 40 mg Ondansetron HCl (Zofran Inj*) 4 mg IV Q6H PRN PRN Reason: NAUSEA Oxycodone HCl (Roxycodone Tab*) 10 mg PO Q3H PRN PRN Reason: PAIN Pharmacy Profile Note (Lidocaine Patch Remove*) 1 note N/A 2099 [facility] Last Admin: 12/31/17 22:27 Dose: Not Given Polyethylene Glycol/Electrolytes (Miralax*) 34 gm PO BID [facility] Prednisone (Deltasone Tab*) 30 mg PO DAILY [facility] Vital Signs - 8 hr 01/01/18 01/01/18 01/01/18 08:10 08:11 08:13 Respiratory 16 16 16 Rate 01/01/18 01/01/18 12:11 12:53 Respiratory 18 16 Rate Oxygen Devices in Use Now: None Appearance: Alert, in a chair. in good spirits. Looks comfortable. Eyes: No Scleral Icterus Skin: No Rash or Ulcers, No Nodules or Sclerosis, - Neurological: Alert and Oriented x 3, NL Sensation Result Diagrams: 12/31/17 06:39 12/31/17 06:39 Assess/Plan/Problems-Billing Assessment: - Patient Problems (1) Fracture of iliac crest Current Visit: Yes Status: Acute Code(s): S32.309A - UNSP FRACTURE OF UNSP ILIUM, INIT ENCNTR FOR CLOSED FRACTURE SNOMED Code(s): 026415791 Comment: Continue PT, analgeics. Bone scan showed intense uptake at site of iliac fracture. No evidence of metastatic disease. Continue to taper prednisone. Change to oral oxycodone PRN alone for pain control . (2) Intervertebral disc protrusion Current Visit: Yes Status: Acute Code(s): UDL9255 - SNOMED Code(s): 97778647 Comment: 0.7 cm disc protrusion L3-L4 framina, severe BL foraminal narrowing , severe narrowing of the central canal. Discussed with Dr. Vick. He would consider extending her lumbar fusion after shome healing of the iliac fracture. (3) Breast CA Current Visit: Yes Status: Acute Code(s): C50.919 - MALIGNANT NEOPLASM OF UNSP SITE OF UNSPECIFIED FEMALE BREAST SNOMED Code(s): 849704863 Comment: Had lumpectomy/RT, now 4.5 yrs into her anastrazole tx. (4) Hypothyroid Current Visit: Yes Status: Acute Code(s): E03.9 - HYPOTHYROIDISM, UNSPECIFIED SNOMED Code(s): 21324070 Comment: Add on TSH 1.82 on 12/31/17. (5) Constipation Current Visit: Yes Status: Acute Code(s): K59.00 - CONSTIPATION, UNSPECIFIED SNOMED Code(s): 12387804 Comment: Mag citrate 200 ml 01/01; increase PEG to 34 gm bid.
[2018-01-01] MEDS: oxyCODONE TAB* 5 MG TAB PO PRN ×3 (16:19→23:59)
[2018-01-01] MEDS: Amitriptyline TAB* 25 MG PO SCH (20:25)
[2018-01-01] MEDS: Melatonin 3 MG TAB PO SCH (20:26)
[2018-01-01] MEDS: Lidocaine Patch REMOVE* 1 NOTE MISC SCH (20:30)
[2018-01-01] MEDS ORDERED: Ibuprofen TAB* 600 MG PO PRN (20:45)
[2018-01-02] MEDS: oxyCODONE TAB* 5 MG TAB PO PRN ×2 (03:30→07:55)
[2018-01-02] MEDS: Cyclobenzaprine TAB* 10 MG PO PRN (04:00)
[2018-01-02 05:32] LABS: ABS Basophils 0.1 10^3/ul (0-0.2); ABS Eosinophils 0 10^3/ul (0-0.6); ABS Lymphocytes 2.1 10^3/ul (1.0-4.8); ABS Monocytes 0.8 10^3/ul (0-0.8); ABS Neutrophils 6.2 10^3/ul (1.5-7.7); ABS Nucleated RBC 0 10^3/ul; Eosinophil % 0.5 % (0-6); Hematocrit 33 % (35-47); Lymphocyte % 22.5 % (25-47); Mean Corpuscular HGB Conc 34 g/dl (31-36); Mean Corpuscular Hemoglobin 30 pg (27-31); Mean Corpuscular Volume 89 fL (80-97); Mean Platelet Volume 7.5 um3 (7.4-10.4); Nucleated Red Blood Cells % 0.1; Platelet Count 373 10^3/ul (150-450); Red Blood Count 3.67 10^6/ul (4.00-5.40); Red Cell Distribution Width 15 % (10.5-15); White Blood Count 9.1 10^3/ul (3.5-10.8)
[2018-01-02] MEDS: Levothyroxine TAB* 125 MCG TAB PO SCH (05:59)
[2018-01-02] MEDS: Heparin VIAL(*) 5000 UNITS/ML VIAL (FIVE THOUSAND) SUBCUT SCH (06:00)
[2018-01-02] MEDS: Polyethylene Glycol 3350* 17 GM PACKET PO SCH (07:28)
[2018-01-02] MEDS: CMC:Anastrozole (NF) 1 MG TAB PO SCH (07:57)
[2018-01-02] MEDS: Lidocaine PATCH 5%* 1 PATCH TRANSDERM SCH (07:57)
[2018-01-02] MEDS: Gabapentin CAP(*) 100 MG PO SCH (07:58)
[2018-01-02] MEDS: CMC:Escitalopram (NF) 10 MG TAB PO SCH (07:59)
[2018-01-02] MEDS: Omeprazole CAP* 20 MG PO SCH (07:59)
[2018-01-02] MEDS: Atorvastatin* 40 MG TAB PO SCH (08:08)
[2018-01-02] MEDS: Hydrochlorothiazide TAB* 25 MG PO SCH (08:09)
--- NOTE | 2018-01-02 08:24 | PN ---
Subjective Date of Service: 01/02/18 Interval History: Ms. Ferro reports that her pain is essentially unchanged; it starts in the right hip and radiates down her thigh. She denies other complaint including chest pain, SOB, nausea, or abdominal pain. She is looking forward to moving on to [facility] for rehab. Objective Active Medications: Acetaminophen (Tylenol Tab*) 650 mg PO Q4H PRN Al Hydroxide/Mg Trisilicate (Gaviscon Chew Tab*) 1 tab.chew PO Q6H PRN Amitriptyline HCl (Elavil Tab*) 75 mg PO BEDTIME [facility] Anastrozole (Arimidex (Nf)) 1 mg PO DAILY [facility] Atorvastatin Calcium (Lipitor*) 40 mg PO DAILY [facility] Cyclobenzaprine HCl (Flexeril Tab*) 10 mg PO TID PRN Escitalopram Oxalate (Lexapro (Nf)) 20 mg PO DAILY [facility] Gabapentin (Neurontin Cap(*)) 100 mg PO TID [facility] Heparin Sodium (Porcine) (Heparin Vial(*)) 5,000 units SUBCUT Q8HR [facility] Hydrochlorothiazide (Hydrodiuril Tab*) 12.5 mg PO DAILY [facility] Ibuprofen (Motrin Tab*) 600 mg PO Q6H PRN Levothyroxine Sodium (Synthroid Tab*) 125 mcg PO DAILY@0600 [facility] Lidocaine (Lidoderm 5% Patch*) 1 patch TRANSDERM DAILY [facility] Melatonin (Melatonin) 9 mg PO BEDTIME [facility] Omeprazole (Prilosec Cap*) 40 mg PO 0900,2100 [facility]; Protocol Ondansetron HCl (Zofran Inj*) 4 mg IV Q6H PRN Oxycodone HCl (Roxycodone Tab*) 10 mg PO Q3H PRN Pharmacy Profile Note (Lidocaine Patch Remove*) 1 note N/A 2100 [facility] Polyethylene Glycol/Electrolytes (Miralax*) 34 gm PO BID [facility] Prednisone (Deltasone Tab*) 30 mg PO DAILY [facility] Vital Signs: Temp Pulse Resp BP Pulse Ox 97.6 F 72 20 129/77 96 01/02/18 07:35 01/02/18 07:35 01/02/18 07:58 01/02/18 07:35 01/02/18 07:35 Oxygen Devices in Use Now: None Appearance: Female lying in bed in [facility] Eyes: No Scleral Icterus Ears/Nose/Mouth/Throat: Mucous Membranes Moist Neck: Trachea Midline Respiratory: Symmetrical Chest Expansion and Respiratory Effort, Clear to Auscultation Cardiovascular: NL Sounds; No Murmurs; No JVD, No Edema Abdominal: NL Sounds; No Tenderness; No Distention Lymphatic: No Cervical Adenopathy Extremities: No Edema Skin: No Rash or Ulcers Neurological: Alert and Oriented x 3, NL Muscle Strength and Tone Nutrition: Taking PO's Result Diagrams: 01/02/18 05:12 12/31/17 06:39 Assess/Plan/Problems-Billing Assessment: Ms. Ferro is a 72 yo F with a PMH of who was admitted on 12/30/17 with right iliac fracture and lumbar disc protrusion. - Patient Problems (1) Fracture of iliac crest Comment: - Continue PT, analgesics. Bone scan showed intense uptake at site of iliac fracture. No evidence of metastatic disease. Continue to taper prednisone. Continue oral oxycodone PRN alone for pain control. (2) Intervertebral disc protrusion Comment: - 0.7 cm disc protrusion L3-L4 framina, severe BL foraminal narrowing, severe narrowing of the central canal. Appreciate Dr. Ziegler consult. He would consider extending her lumbar fusion after some healing of the iliac fracture. (3) Breast CA Comment: - Had lumpectomy/RT, now 4.5 yrs into her anastrazole tx. (4) Constipation Comment: - Mag citrate 200 ml 01/01; increase PEG to 34 gm bid. (5) Hypothyroid Comment: Add on TSH 1.82 on 12/31/17. (6) DVT prophylaxis Comment: - Heparin SQ. (7) Full code status Comment: Status and Disposition: Discharge to [facility].
[2018-01-02] MEDS ORDERED: predniSONE TAB* 10 MG PO SCH (09:00)
[2018-01-02 11:43] VITALS: BP 117/71
--- NOTE | 2018-01-02 12:51 | DS ---
CC: Dr. Garcia * DATE OF ADMISSION: 12/30/2017. DATE OF DISCHARGE: 01/02/2018. ATTENDING PHYSICIAN: Dr. Aicha Quesada * (dictation provided by Aleah Brown NP ). PRIMARY DIAGNOSES: 1. Right iliac crest fracture. 2. Narrowing of the central canal at L3-4 with 0.7 cm disk protrusion. SECONDARY DIAGNOSES: 1. History of breast cancer. 2. Hypothyroidism. 3. GERD. 4. Depression. 5. Osteopenia. 6. Hyperlipidemia. 7. Hypertension. PAST SURGICAL HISTORY: 1. History of fusion at L4-5. 2. Right wrist surgery. 3. Wayne fundoplication. MEDICATIONS: 1. Levothyroxine 125 mcg p.o. daily. 2. Hydrochlorothiazide 12.5 mg p.o. daily. 3. Melatonin 10 mg p.o. at bedtime. 4. Lansoprazole 60 mg p.o. b.i.d. 5. Krill Oil two caps p.o. b.i.d. 6. Ibuprofen prn. 7. Lexapro 20 mg p.o. daily. 8. Duloxetine DR 20 mg p.o. daily. 9. Calcium Carbonate with vitamin D one tab p.o. daily. 10. Atorvastatin 40 mg p.o. daily. 11. Anastrozole 1 mg p.o. daily. 12. Amitriptyline 75 mg p.o. at bedtime. 13. Cyclobenzaprine 10 mg p.o. t.i.d. 14. Prednisone 30 mg p.o. daily to taper. 15. Oxycodone 10 mg p.o. q.3 hours prn. 16. MiraLax 34 gm p.o. b.i.d. 17. Lidocaine patch prn. 18. Gaviscon q.6 hours prn. 19. Gabapentin 100 mg p.o. t.i.d. 20. Tylenol prn. HOSPITAL COURSE: Ms. Radha Ferro is a 72-year-old female with a past medical history as outlined above who presented to the hospital on 12/30/2017 with concern for right hip and right leg pain. Please see the dictated history and physical from Cooper Jean NP for complete details. In brief, the patient stated that about three weeks prior to her admission she fell and had pain in her right hip. She was found to have a right iliac wing fracture. She had seen Dr. Bennett as an outpatient in follow-up of this. She had ongoing pain that suddenly worsened immediately prior to admission. She has a history of an L4-5 fusion and in work-up of her pain as an outpatient, she had had a lumbar spine MRI on 12/04/2017 which showed severe narrowing of the central canal at L3 -4 with a right sided disk protrusion. Ms. Ferro was admitted to the hospital for pain control. Her evaluation included a pelvis CT which showed the following: "Again noted is a fracture of the right iliac wing, similar to the MRI of 12/26/2017." She had a repeat lumbar spine MRI that showed "degenerative disk disease and osteoarthritis; there is severe narrowing of the central canal at L3-4; there is multilevel neural foraminal narrowing as noted above; there is a chronic compression deformity of L1; the patient is status post laminectomy and spinal fusion." She had a hip MRI that showed " slightly displaced fracture of the right anterior iliac wing as previously noted; there is increased angulation of the fracture fragments; there is progressive edema within the right iliopsoas, right gluteus medius and minimus muscles; there are suggestions of partial tears of the gluteus medius and minimus muscles; crescent-shaped area of subchondral marrow edema in the left femoral head suggestive of either a stress fracture or avascular necrosis." The patient had a bone scan on 01/01/2018 that showed the following: "No specific evidence for metastatic disease." In addition to the imaging and efforts of pain control, the patient was seen in consultation by Dr. Saleem from the Orthopedic Surgery team. I refer you to his notes for complete details. But in brief, there was no indication for surgical intervention and given that the patient had significant continued pain , the recommendation was for her to be followed up by the Neurosurgical team. Dr. Villeda saw the patient on 12/31/2017 and he surmised that based on the fact that the patient had no neurological deficits and that her MRI findings were stable, that her symptoms were likely more related to iliac crest fracture. He did note that the patient should follow-up with him as an outpatient and there could be consideration for extension of her L3-4 fusion based on her L4-5 disk protrusion. Ms. Ferro is doing well today. She continues to have significant pain in the right hip and radiating into the right leg. She has been evaluated by Physical Therapy and by the team at our Physical Medicine Rehabilitation Unit and has been deemed to be an appropriate candidate for rehabilitation there. Ms. Ferro is medically stable for discharge to PM. DISPOSITION: To PMRU. DIET: Heart healthy. ACTIVITY: As tolerated. FOLLOW-UP PLANS: Please follow-up with Dr. Villeda, Dr. Saleem, and Dr. Garcia. Approximately 60 minutes were spent in the discharge of this patient, more than half that time was spent with the patient at the bedside reviewing the events leading up to and during this hospitalization, performing the physical examination, and reviewing my plan of care. ALEAH BROWN NP [id number]/[facility] #: [id number] MARIA A
== END 2018-01-02 12:06 | DRG 552 ==
LOC: ED 07:33 → MED 11:42
PROVIDERS: ADMIT Student in an Organized Health Care Education/Training Program; ATTEND Internal Medicine
DX: M51.36 Other intervertebral disc degeneration, lumbar region (principal); S32.301A Unspecified fracture of right ilium, initial encounter for closed fracture; M48.061 Spinal stenosis, lumbar region without neurogenic claudication; E03.9 Hypothyroidism, unspecified; K21.9 Gastro-esophageal reflux disease without esophagitis; F32.9 Major depressive disorder, single episode, unspecified; M85.80 Other specified disorders of bone density and structure, unspecified site; E78.5 Hyperlipidemia, unspecified; I10 Essential (primary) hypertension; G62.9 Polyneuropathy, unspecified; W19.XXXA Unspecified fall, initial encounter; M51.16 Intervertebral disc disorders with radiculopathy, lumbar region; K59.00 Constipation, unspecified; C50.919 Malignant neoplasm of unspecified site of unspecified female breast; Z85.3 Personal history of malignant neoplasm of breast; Z98.1 Arthrodesis status; Y92.9 Unspecified place or not applicable; Z88.2 Allergy status to sulfonamides; Z80.1 Family history of malignant neoplasm of trachea, bronchus and lung; Z82.5 Family history of asthma and other chronic lower respiratory diseases; Z72.89 Other problems related to lifestyle
CPT/HCPCS: 36415; 72148; 72192; 78306; 80048; 80053; 81003; 83690; 84443; 85025; 85610; 85652; 85730; 86141; 99284; A9270-GY; A9503; G8978-GP-CL; G8979-GP-CI; G8987-GO-CJ; G8988-GO-CI; J1644; J2270; J2405; J7512

== ENCOUNTER 2018-01-02 11:21 | Inpatient (IN) | payer MEDICARE, OTHER ==
[2018-01-02] MEDS ORDERED: oxyCODONE TAB* 5 MG TAB PO ONE (13:09)
[2018-01-02] MEDS: Heparin VIAL(*) 5000 UNITS/ML VIAL (FIVE THOUSAND) SUBCUT SCH ×2 (14:33→21:16)
[2018-01-02] MEDS: Gabapentin CAP(*) 100 MG PO SCH ×2 (14:34→21:15)
[2018-01-02] MEDS: Acetaminophen TAB* 325 MG PO PRN (16:24)
[2018-01-02] MEDS ORDERED: Cyclobenzaprine TAB* 10 MG PO PRN (17:13)
[2018-01-02] MEDS ORDERED: Polyethylene Glycol 3350* 17 GM PACKET PO PRN (17:17)
[2018-01-02] MEDS: oxyCODONE TAB* 5 MG TAB PO PRN (19:40)
--- NOTE | 2018-01-02 20:54 | HP ---
ADMISSION HISTORY AND PHYSICAL: DATE OF ADMISSION: 01/02/18 REASON FOR ADMISSION: Right iliac wing fracture; spinal stenosis. HISTORY OF PRESENT ILLNESS: Radha Ferro is a 72-year-old female. She has a medical history significant for hypothyroidism as well as breast cancer. She has a history of neuropathy bilaterally. The patient had a lumbar fusion done 2 years ago while she was living in [place]. Her got sick after that and she had to take care of her . She has had an L4-5 transforaminal lumbar interbody fusion with an L4 kyphoplasty. As mentioned, following that she had to take care of her who was ill. After her , she decided to relocate to [place]. That was about 6 months ago. She had fallen while she was in [place]. It was after that fall that she began to have a lot of pain in her back and radiated down her right leg. The patient then moved to [place] to be closer to her son. About 2 weeks ago, she fell again. Following that second fall, her pain increased in intensity. She did have an MRI of her lumbar spine done 12/04/17. It showed severe narrowing of the central canal at L3-4 with a right-sided disk protrusion. There was also multilevel neuroforaminal narrowing. The patient as mentioned fell after that and was having increasing trouble. On 12/30/17, she felt like she could no longer ambulate because she was having extreme pain. She came to the emergency room. She did have MRI of her hip on 12/30/17. It showed a slightly displaced fracture of the right anterior iliac wing. There was also edema in the right iliopsoas, right gluteus medius and minimus muscles suggestive of partial tears of those muscles. She likewise had an MRI of her lumbar spine on 12/30/17. Again was seen the central canal stenosis as well as neural foraminal stenosis at multiple levels. She had a neurosurgery consult with Dr. Villeda, who felt that given her iliac wing fracture taking her to surgery at the present time was not in her best interest. She also had a CAT scan of her pelvis. She also had a consult from orthopedist. Ortho felt that most of her pain was neurologic and not coming from her hip. She was felt to have physical therapy and occupational therapy needs. She was given oxycodone for pain control and Flexeril for pain spasms. She was also started on a prednisone taper. She is now being admitted for inpatient rehab so that she might return to independent living. PAST MEDICAL HISTORY: Significant for hypothyroidism, gastroesophageal reflux disease, depression. She has peripheral neuropathy and has a history of breast cancer. CURRENT MEDICATIONS: Include: 1. Oxycodone. 2. She is on Lipitor. 3. Flexeril. 4. Lexapro. 5. Gabapentin. 6. Hydrochlorothiazide. 7. Synthroid. 8. Prilosec. 9. MiraLAX. 10. Lidocaine patch. ALLERGIES: Include SULFA DRUGS. SOCIAL HISTORY: She lives in senior housing across the street from the hospital. She lives by herself. The building does have an elevator. She was independent prior to admission. PHYSICAL EXAMINATION VITAL SIGNS: The patient's temperature is 98.8, blood pressure is 129/75, pulse 66, respirations 18. HEENT: Her extraocular movements were intact. Tongue is midline. NECK: Supple. LUNGS: Sound clear to auscultation bilaterally. HEART: Sounds were regular. S1 and S2 were audible. ABDOMEN: Soft and nontender. EXTREMITIES: Her lower extremities have decreased sensation peripherally. Her right leg, she has difficulty moving or putting through range of motion. NEUROLOGIC: As mentioned, sensation was diminished peripherally in her feet. She was alert and oriented. Muscle strength was 5/5 except the right leg, which was limited by pain. FUNCTIONAL EXAM: She transfers with min to mod assist. ASSESSMENT: 1. Right iliac wing fracture. 2. Apparent tears of gluteus medius and minimus on the right side. PLAN: Integrate her into a comprehensive and therapeutic rehab program with the following goals: 1. Physical Therapy will work with the patient. They are going to work on functional transfer training, ambulation training with a walker, wheelchair mobilities. 2. Occupational Therapy will see the patient, work on her activities of daily living including toileting and toilet transfers. 3. Heparin for DVT prophylaxis. 4. Adequate analgesia. 5. For her muscle spasms, the Flexeril is not working. We are going to stop this in favor of baclofen. 6. Continue Synthroid for hypothyroidism. 7. Continue prednisone taper. I have written a taper schedule. 8. Continue Neurontin for neuropathic pain. This was also treatment for her peripheral neuropathy. We may increase the dose. 9. consulting services project manager will be closely involved to make sure that any services and equipment the patient requires are in place prior to discharge. 10. Family training as appropriate. 11. Home with appropriate services. ESTIMATED LENGTH OF STAY: 7 to 10 days. [id number]/[facility] #: [id number] MARIA A
[2018-01-02] MEDS ORDERED: Polyethylene Glycol 3350* 17 GM PACKET PO SCH (21:00)
[2018-01-02] MEDS: Omeprazole CAP* 20 MG PO SCH (21:15)
[2018-01-02] MEDS: Amitriptyline TAB* 25 MG PO SCH (21:16)
[2018-01-02] MEDS: Docusate CAP* 100 MG PO SCH (21:23)
[2018-01-02] MEDS: Senna TAB PO SCH (21:23)
[2018-01-03] MEDS: oxyCODONE TAB* 5 MG TAB PO PRN ×5 (00:03→22:07)
[2018-01-03] MEDS: Baclofen TAB* 10 MG PO PRN ×3 (06:14→23:13)
[2018-01-03] MEDS: Acetaminophen TAB* 325 MG PO PRN ×2 (06:14→12:08)
[2018-01-03] MEDS: Heparin VIAL(*) 5000 UNITS/ML VIAL (FIVE THOUSAND) SUBCUT SCH ×3 (06:16→21:34)
[2018-01-03] MEDS: Levothyroxine TAB* 125 MCG TAB PO SCH (06:24)
[2018-01-03 07:01] LABS: ABS Basophils 0.1 10^3/ul (0-0.2); ABS Eosinophils 0.1 10^3/ul (0-0.6); ABS Lymphocytes 2.5 10^3/ul (1.0-4.8); ABS Monocytes 0.6 10^3/ul (0-0.8); ABS Neutrophils 4.8 10^3/ul (1.5-7.7); ABS Nucleated RBC 0 10^3/ul; Eosinophil % 0.9 % (0-6); Hematocrit 34 % (35-47); Hemoglobin 11.7 g/dl (12.0-16.0); Lymphocyte % 31.2 % (25-47); Mean Corpuscular HGB Conc 34 g/dl (31-36); Mean Corpuscular Hemoglobin 31 pg (27-31); Mean Corpuscular Volume 89 fL (80-97); Mean Platelet Volume 7.3 um3 (7.4-10.4); Nucleated Red Blood Cells % 0.1; Platelet Count 376 10^3/ul (150-450); Red Blood Count 3.84 10^6/ul (4.00-5.40); Red Cell Distribution Width 15 % (10.5-15); White Blood Count 8.1 10^3/ul (3.5-10.8)
[2018-01-03 07:20] LABS: EGFR Non-African American 74.6 (>60)
[2018-01-03] MEDS: Gabapentin CAP(*) 100 MG PO SCH ×3 (08:21→21:31)
[2018-01-03] MEDS: predniSONE TAB* 10 MG PO SCH (08:21)
[2018-01-03] MEDS: Omeprazole CAP* 20 MG PO SCH ×2 (08:22→20:09)
[2018-01-03] MEDS: Docusate CAP* 100 MG PO SCH ×2 (08:26→20:07)
[2018-01-03] MEDS: Lidocaine PATCH 5%* 1 PATCH TRANSDERM SCH (09:53)
[2018-01-03] MEDS: CMC:Anastrozole (NF) 1 MG TAB PO SCH (09:55)
[2018-01-03] MEDS: Hydrochlorothiazide TAB* 25 MG PO SCH (09:55)
[2018-01-03] MEDS: CMC:Escitalopram (NF) 20 MG TAB PO SCH (09:56)
--- NOTE | 2018-01-03 12:37 | PMRUTEAM ---
PMRU: Team Meeting Current Status: Nursing: Current Status Skin Deviation Description [NO no skin issues Skin Issues] Physical Therapy: Current Status Bed Mobility Assistance Mod Assist Transfer Moblility Assistance Contact Guard Ambulation Assistance Contact Guard 15 feet Ambulation Assistive Devices FWW Occupational Therapy: Current Status Lower Body Dressing Min Assist Bathing Contact Guard Assist Toileting Contact Guard Assist Toilet Transfer Contact Guard Assist Shower Transfer Contact Guard Assist Eating Supervision Rec Therapy: Current Status Summary of Assessment and Pt. was open to conversion - pt. was appropriate Clinical Impression and cooperative. Pt. identified with numerous interests and active involvement in them prior to admission. Pt. mentioned many interests she is excited to get involved in after d/c. Treatment Goals Pt. will engage in leisure activities while on the unit. Treatment Plan Provide RT services and encourage involvement. Social Work: Current Status Discharge Plan return home with home care svs and family support Potential for Family Training TBD (pt lives alone) Anticipated Discharge Home Destination Discharge With home care svs and family support Goals: Social Work: Goals Discharge Plan return home with home care svs and family support Potential for Family Training TBD (pt lives alone) Anticipated Discharge Home Destination Discharge With home care svs and family support Care Plan: Care Plan DVT Prophylaxis- Improve/Maintain Start: 01/02/18 17:22 Freq: QSHIFT Status: Active Target: Protocol: Activity Type Activity Date Activity User E-Sign Co-Sign Detail Recorded Client Recorded Date Recorded By Document 01/02/18 23:45 [id number] 01/02/18 23:45 [id number] 01/02/18 23:45 PMRU Outcome: DVT Prophylaxis Outcome/Goals Remains Free of DVT TEDS Stockings on Every AM, Off at HS Progression Toward Outcome/Goals Progressing Discharge Planning - Improve/Maintain Start: 01/02/18 17:22 Freq: DAILY Status: Active Target: Protocol: Activity Type Activity Date Activity User E-Sign Co-Sign Detail Recorded Client Recorded Date Recorded By Document 01/02/18 23:45 [id number] 01/02/18 23:45 [id number] 01/02/18 23:45 PMRU Outcome: Discharge Planning Outcome/Goals Demonstrates Understanding of Discharge Plan /GI-Improve/Maintain Start: 01/02/18 17:22 Freq: QSHIFT Status: Active Target: Protocol: Activity Type Activity Date Activity User E-Sign Co-Sign Detail Recorded Client Recorded Date Recorded By Document 01/02/18 23:45 [id number] 01/02/18 23:45 [id number] 01/02/18 23:45 PMRU Outcome: Genitourinary/ Gastrointestinal Genitourinary- Outcome/Goals Maintain/ Achieve Urinary Continence Maintain/ Achieve Adequate Urinary Output Gastrointestinal-Outcome/Goals Remain Free of Emesis Bowel Regularity at Home Progression Toward Outcome/Goals - Progressing Pain/Comfort- Improve/Maintain Start: 01/02/18 17:22 Freq: QSHIFT Status: Active Target: Protocol: Activity Type Activity Date Activity User E-Sign Co-Sign Detail Recorded Client Recorded Date Recorded By Document 01/02/18 23:45 [id number] 01/02/18 23:45 [id number] 01/02/18 23:45 PMRU Outcome: Pain/Comfort Outcome/Goals Demonstrates Knowledge and Use of Available Comfort Measures Maintain Comfort Level Allowing Patient to Fully Participate in Rehab Progression Toward Outcome/Goals Progressing Outcome/Goals Met Comment pt resting at this time Safety- Improve/Maintain Start: 01/02/18 17:22 Freq: QSHIFT Status: Active Target: Protocol: Activity Type Activity Date Activity User E-Sign Co-Sign Detail Recorded Client Recorded Date Recorded By Document 01/02/18 23:45 [id number] 01/02/18 23:45 [id number] 01/02/18 23:45 PMRU Outcome: Safety Outcome/Goals Remain Free of Injury or Harm Cooperates with Safety Measures for Least Restrictive Environment Prevent Falls/ Injury Progression Toward Outcome/Goals Progressing Outcome/Goals Met Comment [facility] armed Medicine Note: Length of Stay: 4 days Anticipated Discharge Destination: Home Tentative Discharge Date: January 07, 2018 Discharged to: Home
--- NOTE | 2018-01-03 15:16 | PN ---
Progress Note Date of Service: 01/03/18 Note: GEORGE SWANSON was visited. Therapy notes read and reviewed. She was discussed in interdisciplinary plan of care rounds. She was walking in PT and felt a pop in her side and more pain. Will order a CT to see if any difference in appearance. Pain is still a problem. Baclofen not working, may increase to 10. Will add OxyContin 15 mg BID Current Medications: Active Medications Generic Name Dose Route Start Last Admin Trade Name Freq PRN Reason Stop Dose Admin Acetaminophen 650 mg 01/02/18 13:17 01/03/18 12:08 Tylenol Tab* PO 650 mg Q6H PRN Administration FEVER/PAIN Amitriptyline HCl 75 mg 01/02/18 21:00 01/02/18 21:16 Elavil Tab* PO 75 mg BEDTIME CHRIS Administration Anastrozole 1 mg 01/03/18 09:00 01/03/18 09:55 Arimidex (Nf) PO 1 mg DAILY CHRIS Administration Atorvastatin Calcium 40 mg 01/03/18 17:00 Lipitor* PO 1700 CHRIS Baclofen 5 mg 01/02/18 19:06 01/03/18 12:09 Lioresal Tab* PO 5 mg TID PRN Administration SPASMS Docusate Sodium 100 mg 01/02/18 21:00 01/03/18 08:26 Colace Cap* PO Not Given BID CHRIS Escitalopram Oxalate 20 mg 01/03/18 09:00 01/03/18 09:56 Lexapro (Nf) PO 20 mg DAILY CHRIS Administration Gabapentin 100 mg 01/02/18 14:00 01/03/18 13:37 Neurontin Cap(*) PO 100 mg TID CHRIS Administration Heparin Sodium (Porcine) 5,000 units 01/02/18 14:00 01/03/18 13:37 Heparin Vial(*) SUBCUT 5,000 units Q8HR CHRIS Administration Hydrochlorothiazide 12.5 mg 01/03/18 09:00 01/03/18 09:55 Hydrodiuril Tab* PO 12.5 mg DAILY CHRIS Administration Levothyroxine Sodium 125 mcg 01/03/18 06:00 01/03/18 06:24 Synthroid Tab* PO 125 mcg DAILY@0600 CHRIS Administration Lidocaine 1 patch 01/03/18 09:00 01/03/18 09:53 Lidoderm 5% Patch* TRANSDERM 1 patch DAILY CHRIS Administration Magnesium Hydroxide 30 ml 01/02/18 13:17 Milk Of Magnbeth Liq* PO Q6H PRN CONSTIPATION Omeprazole 40 mg 01/02/18 21:00 01/03/18 08:22 Prilosec Cap* PO 40 mg BID CHRIS Administration Oxycodone HCl 10 mg 01/02/18 13:54 01/03/18 13:33 Roxycodone Tab* PO 10 mg Q4H PRN Administration PAIN - SEVERE Oxycodone HCl 15 mg 01/03/18 21:00 Oxycontin(*) PO Q12HR [facility] Pharmacy Profile Note 1 note 01/03/18 21:00 Lidocaine Patch Remove* PATCH OFF 2100 [facility] Polyethylene Glycol/Electrolytes 17 gm 01/02/18 17:17 Miralax* PO DAILY PRN CONSTIPATION Prednisone 30 mg 01/03/18 09:00 01/03/18 08:21 Deltasone Tab* PO 01/04/18 23:59 30 mg DAILY [facility] Administration Prednisone 20 mg 01/05/18 09:00 Deltasone Tab* PO 01/07/18 23:59 DAILY [facility] Prednisone 10 mg 01/08/18 09:00 Deltasone Tab* PO 01/10/18 23:59 DAILY [facility] Senna 2 tab 01/02/18 21:00 01/02/18 21:23 Senokot Tab* PO Not Given BEDTIME [facility] Vital Signs: Vital Signs Temp Pulse Resp BP Pulse Ox 97.1 F 66 18 146/89 99 01/03/18 06:13 01/03/18 06:46 01/03/18 13:37 01/03/18 06:46 01/03/18 08:00 Lab Results: Laboratory Results - last 24 hr 01/03/18 01/03/18 06:50 06:50 WBC 8.1 RBC 3.84 L Hgb 11.7 L Hct 34 L MCV 89 MCH 31 MCHC 34 RDW 15 Plt Count 376 MPV 7.3 L Neut % (Auto) 59.3 Lymph % (Auto) 31.2 [place] % (Auto) 7.8 H Eos % (Auto) 0.9 Baso % (Auto) 0.8 Absolute Neuts (auto) 4.8 Absolute Lymphs (auto) 2.5 Absolute Monos (auto) 0.6 Absolute Eos (auto) 0.1 Absolute Basos (auto) 0.1 Absolute Nucleated RBC 0 Nucleated RBC % 0.1 Sodium 139 Potassium 3.8 Chloride 101 Carbon Dioxide 32 Anion Gap 6 BUN 13 Creatinine 0.76 Est GFR ( Amer) 90.3 Est GFR (Non-Af Amer) 74.6 BUN/Creatinine Ratio 17.1 Glucose 87 Calcium 8.8 Total Bilirubin 0.40 AST 16 ALT 14 Alkaline Phosphatase 122 H Total Protein 6.5 Albumin 3.4 Globulin 3.1 Albumin/Globulin Ratio 1.1 Exam: LUNGS: Clear HEART: reg rhythm ABDOMEN: Soft +BS EXTREMITIES: Tender over right lat side, no edema NEUROLOGIC: alert oriented. Exam shows RLE weakness due to pain, otherwise 5/5 Assessment/Plan: 1. Right Iliac Wing Fracture: for now WBAT. PT/OT. Follow up CT. Add OxyContin 2. Spinal Stenosis: Gabapentin. Analgesia. May need another surgery after she is over fracture. Prednisone taper 3. HTN: HCTZ 4. Spasms: Baclofen for now 5. DVT Prophylaxis: Heparin S/Q 6. Depression: Lexapro 7. Advanced Directives: Full Code 01/03/18 15:17
--- NOTE | 2018-01-03 16:22 | RAD ---
Indication: Right iliac wing fracture with increased pain. CT of the pelvis was performed without IV contrast. Coronal and sagittal reconstructed images were obtained. Comparison is made with previous exam dated December 30, 2017. Again noted is a fracture of the right iliac wing. There is now posterior displacement of the distal fracture fragment approximately 1 shafts width. There may be some overriding of the fracture fragments. There may be enlargement of the right iliacus muscle suggestive of hematoma. This is similar to that seen previously. The left pelvic ring is otherwise unremarkable. No free fluid is identified. The uterus is atrophic. Small bowel demonstrates no abnormal dilatation. IMPRESSION: Again identified is a right iliac wing fracture however there is new dorsal displacement of the distal fracture fragment approximately 1 shafts width when compared to previous exam of December 30, 2017. Enlarged right iliacus muscle with probable underlying hematoma. This appears similar to previous exam.
[2018-01-03] MEDS: Atorvastatin* 40 MG TAB PO SCH (17:04)
[2018-01-03] MEDS: Senna TAB PO SCH (20:07)
[2018-01-03] MEDS: oxyCODONE SR TAB(*) 15 MG TAB.SR PO SCH (20:08)
[2018-01-03] MEDS: Lidocaine Patch REMOVE* 1 NOTE MISC PATCH OFF SCH (20:29)
[2018-01-03] MEDS: Amitriptyline TAB* 25 MG PO SCH (21:31)
[2018-01-04] MEDS: Baclofen TAB* 10 MG PO PRN ×2 (06:44→18:50)
[2018-01-04] MEDS: Levothyroxine TAB* 125 MCG TAB PO SCH (06:44)
[2018-01-04] MEDS: Acetaminophen TAB* 325 MG PO PRN (06:45)
[2018-01-04] MEDS: Heparin VIAL(*) 5000 UNITS/ML VIAL (FIVE THOUSAND) SUBCUT SCH ×3 (06:46→21:53)
[2018-01-04] MEDS: CMC:Escitalopram (NF) 20 MG TAB PO SCH (07:59)
[2018-01-04] MEDS: Omeprazole CAP* 20 MG PO SCH ×2 (07:59→20:44)
[2018-01-04] MEDS: predniSONE TAB* 10 MG PO SCH (07:59)
[2018-01-04] MEDS: oxyCODONE TAB* 5 MG TAB PO PRN ×4 (08:00→23:50)
[2018-01-04] MEDS: Docusate CAP* 100 MG PO SCH ×2 (08:00→20:44)
[2018-01-04] MEDS: oxyCODONE SR TAB(*) 15 MG TAB.SR PO SCH ×2 (08:00→20:45)
[2018-01-04] MEDS: Gabapentin CAP(*) 100 MG PO SCH ×3 (08:00→20:43)
[2018-01-04] MEDS: Hydrochlorothiazide TAB* 25 MG PO SCH (08:01)
[2018-01-04] MEDS: CMC:Anastrozole (NF) 1 MG TAB PO SCH (08:02)
[2018-01-04] MEDS: Lidocaine PATCH 5%* 1 PATCH TRANSDERM SCH (08:07)
[2018-01-04] MEDS: Atorvastatin* 40 MG TAB PO SCH (17:18)
--- NOTE | 2018-01-04 20:36 | PN ---
Progress Note Date of Service: 01/04/18 Note: GEORGE SWANSON was visited. Therapy notes read and reviewed. OxyContin has been quite helpful to her. She has increased displacement of her iliac wing fracture. Will ask ortho to comment Current Medications: Active Medications Generic Name Dose Route Start Last Admin Trade Name Freq PRN Reason Stop Dose Admin Acetaminophen 650 mg 01/02/18 13:17 01/04/18 06:45 Tylenol Tab* PO 650 mg Q6H PRN Administration FEVER/PAIN Amitriptyline HCl 75 mg 01/02/18 21:00 01/03/18 21:31 Elavil Tab* PO 75 mg BEDTIME CHRIS Administration Anastrozole 1 mg 01/03/18 09:00 01/04/18 08:02 Arimidex (Nf) PO 1 mg DAILY CHRIS Administration Atorvastatin Calcium 40 mg 01/03/18 17:00 01/04/18 17:18 Lipitor* PO 40 mg 1700 CHRIS Administration Baclofen 5 mg 01/02/18 19:06 01/04/18 18:50 Lioresal Tab* PO 5 mg TID PRN Administration SPASMS Docusate Sodium 100 mg 01/02/18 21:00 01/04/18 08:00 Colace Cap* PO 100 mg BID CHRIS Administration Escitalopram Oxalate 20 mg 01/03/18 09:00 01/04/18 07:59 Lexapro (Nf) PO 20 mg DAILY CHRIS Administration Gabapentin 100 mg 01/02/18 14:00 01/04/18 14:11 Neurontin Cap(*) PO 100 mg TID CHRIS Administration Heparin Sodium (Porcine) 5,000 units 01/02/18 14:00 01/04/18 14:12 Heparin Vial(*) SUBCUT 5,000 units Q8HR CHRIS Administration Hydrochlorothiazide 12.5 mg 01/03/18 09:00 01/04/18 08:01 Hydrodiuril Tab* PO 12.5 mg DAILY CHRIS Administration Levothyroxine Sodium 125 mcg 01/03/18 06:00 01/04/18 06:44 Synthroid Tab* PO 125 mcg DAILY@0600 CHRIS Administration Lidocaine 1 patch 01/03/18 09:00 01/04/18 08:07 Lidoderm 5% Patch* TRANSDERM 1 patch DAILY CHRIS Administration Magnesium Hydroxide 30 ml 01/02/18 13:17 Milk Of Magnesia Liq* PO Q6H PRN CONSTIPATION Omeprazole 40 mg 01/02/18 21:00 01/04/18 07:59 Prilosec Cap* PO 40 mg BID CHRIS Administration Oxycodone HCl 10 mg 01/02/18 13:54 01/04/18 18:50 Roxycodone Tab* PO 10 mg Q4H PRN Administration PAIN - SEVERE Oxycodone HCl 15 mg 01/03/18 21:00 01/04/18 08:00 Oxycontin(*) PO 15 mg Q12HR CHRIS Administration Pharmacy Profile Note 1 note 01/03/18 21:00 01/03/18 20:29 Lidocaine Patch Remove* PATCH OFF 1 note 2100 CHRIS Administration Polyethylene Glycol/Electrolytes 17 gm 01/02/18 17:17 01/04/18 19:02 Miralax* PO 17 gm DAILY PRN Administration CONSTIPATION Prednisone 30 mg 01/03/18 09:00 01/04/18 07:59 Deltasone Tab* PO 01/04/18 23:59 30 mg DAILY CHRIS Administration Prednisone 20 mg 01/05/18 09:00 Deltasone Tab* PO 01/07/18 23:59 DAILY CHRIS Prednisone 10 mg 01/08/18 09:00 Deltasone Tab* PO 01/10/18 23:59 DAILY CHRIS Senna 2 tab 01/02/18 21:00 01/03/18 20:07 Senokot Tab* PO 2 tab BEDTIME CHRIS Administration Vital Signs: Vital Signs Temp Pulse Resp BP Pulse Ox 99.3 F 94 16 123/77 94 01/04/18 16:26 01/04/18 16:26 01/04/18 18:50 01/04/18 16:26 01/04/18 16:27 Exam: GENERAL: No distress, alert and oriented LUNGS: Clear HEART: reg rhythm ABDOMEN: Soft +BS EXTREMITIES: Tender over right lat side, no edema NEUROLOGIC: alert oriented. Exam shows RLE weakness due to pain, otherwise 5/5 Assessment/Plan: 1. Right Iliac Wing Fracture: for now WBAT. PT/OT. Follow up CT showed displacement. Ortho follow up. Added OxyContin 2. Spinal Stenosis: Gabapentin. Analgesia. May need another surgery after she is over fracture. Prednisone taper 3. HTN: HCTZ 4. Spasms: Baclofen for now 5. DVT Prophylaxis: Heparin S/Q 6. Depression: Lexapro 7. Advanced Directives: Full Code 01/04/18 20:37
[2018-01-04] MEDS: Amitriptyline TAB* 25 MG PO SCH (20:44)
[2018-01-04] MEDS: Senna TAB PO SCH (20:45)
[2018-01-04] MEDS: Lidocaine Patch REMOVE* 1 NOTE MISC PATCH OFF SCH (21:53)
[2018-01-05] MEDS: Baclofen TAB* 10 MG PO PRN ×3 (03:59→18:47)
[2018-01-05] MEDS: Levothyroxine TAB* 125 MCG TAB PO SCH (05:42)
[2018-01-05] MEDS: oxyCODONE TAB* 5 MG TAB PO PRN ×3 (05:42→18:46)
[2018-01-05] MEDS: Heparin VIAL(*) 5000 UNITS/ML VIAL (FIVE THOUSAND) SUBCUT SCH ×3 (05:42→21:27)
[2018-01-05] MEDS: Gabapentin CAP(*) 100 MG PO SCH ×3 (08:17→21:25)
[2018-01-05] MEDS: Magnesium Hydroxide LIQ* 30 ML UDC PO PRN ×2 (08:17→13:13)
[2018-01-05] MEDS: CMC:Anastrozole (NF) 1 MG TAB PO SCH (08:17)
[2018-01-05] MEDS: CMC:Escitalopram (NF) 20 MG TAB PO SCH (08:17)
[2018-01-05] MEDS: Omeprazole CAP* 20 MG PO SCH ×2 (08:18→21:26)
[2018-01-05] MEDS: oxyCODONE SR TAB(*) 15 MG TAB.SR PO SCH ×2 (08:18→21:25)
[2018-01-05] MEDS: predniSONE TAB* 20 MG PO SCH (08:18)
[2018-01-05] MEDS: Docusate CAP* 100 MG PO SCH ×2 (08:18→21:26)
[2018-01-05] MEDS: Hydrochlorothiazide TAB* 25 MG PO SCH (08:18)
[2018-01-05] MEDS: Lidocaine PATCH 5%* 1 PATCH TRANSDERM SCH (08:19)
--- NOTE | 2018-01-05 15:51 | PN ---
Progress Note Date of Service: 01/05/18 Note: GEORGE SWANSON was visited. Nursing notes read and reviewed. She is constipated. She had a dose of Miralax last night and MOM today. Current Medications: Active Medications Generic Name Dose Route Start Last Admin Trade Name Freq PRN Reason Stop Dose Admin Acetaminophen 650 mg 01/02/18 13:17 01/04/18 06:45 Tylenol Tab* PO 650 mg Q6H PRN Administration FEVER/PAIN Amitriptyline HCl 75 mg 01/02/18 21:00 01/04/18 20:44 Elavil Tab* PO 75 mg BEDTIME CHRIS Administration Anastrozole 1 mg 01/03/18 09:00 01/05/18 08:17 Arimidex (Nf) PO 1 mg DAILY CHRIS Administration Atorvastatin Calcium 40 mg 01/03/18 17:00 01/04/18 17:18 Lipitor* PO 40 mg 1700 CHRIS Administration Baclofen 5 mg 01/02/18 19:06 01/05/18 11:03 Lioresal Tab* PO 5 mg TID PRN Administration SPASMS Docusate Sodium 100 mg 01/02/18 21:00 01/05/18 08:18 Colace Cap* PO 100 mg BID CHRIS Administration Escitalopram Oxalate 20 mg 01/03/18 09:00 01/05/18 08:17 Lexapro (Nf) PO 20 mg DAILY CHRIS Administration Gabapentin 100 mg 01/02/18 14:00 01/05/18 13:11 Neurontin Cap(*) PO 100 mg TID CHRIS Administration Heparin Sodium (Porcine) 5,000 units 01/02/18 14:00 01/05/18 13:11 Heparin Vial(*) SUBCUT 5,000 units Q8HR CHRIS Administration Hydrochlorothiazide 12.5 mg 01/03/18 09:00 01/05/18 08:18 Hydrodiuril Tab* PO 12.5 mg DAILY CHRIS Administration Levothyroxine Sodium 125 mcg 01/03/18 06:00 01/05/18 05:42 Synthroid Tab* PO 125 mcg DAILY@0600 CHRIS Administration Lidocaine 1 patch 01/03/18 09:00 01/05/18 08:19 Lidoderm 5% Patch* TRANSDERM Not Given DAILY CHRIS Magnesium Hydroxide 30 ml 01/02/18 13:17 01/05/18 13:13 Milk Of Magnesia Liq* PO 30 ml Q6H PRN Administration CONSTIPATION Omeprazole 40 mg 01/02/18 21:00 01/05/18 08:18 Prilosec Cap* PO 40 mg BID CHRIS Administration Oxycodone HCl 10 mg 01/02/18 13:54 01/05/18 13:10 Roxycodone Tab* PO 10 mg Q4H PRN Administration PAIN - SEVERE Oxycodone HCl 15 mg 01/03/18 21:00 01/05/18 08:18 Oxycontin(*) PO 15 mg Q12HR CHRIS Administration Pharmacy Profile Note 1 note 01/03/18 21:00 01/04/18 21:53 Lidocaine Patch Remove* PATCH OFF Not Given 2100 CHRIS Polyethylene Glycol/Electrolytes 17 gm 01/02/18 17:17 01/04/18 19:02 Miralax* PO 17 gm DAILY PRN Administration CONSTIPATION Prednisone 20 mg 01/05/18 09:00 01/05/18 08:18 Deltasone Tab* PO 01/07/18 23:59 20 mg DAILY CHRIS Administration Prednisone 10 mg 01/08/18 09:00 Deltasone Tab* PO 01/10/18 23:59 DAILY CHRIS Senna 2 tab 01/02/18 21:00 01/04/18 20:45 Senokot Tab* PO 2 tab BEDTIME CHRIS Administration Vital Signs: Vital Signs Temp Pulse Resp BP Pulse Ox 97.3 F 62 20 116/73 97 01/05/18 05:38 01/05/18 05:38 01/05/18 13:11 01/05/18 05:38 01/05/18 08:00 Exam: GENERAL: No distress, alert and oriented LUNGS: Clear HEART: reg rhythm ABDOMEN: Soft +BS EXTREMITIES: Tender over right lat side, no edema NEUROLOGIC: alert oriented. Exam shows RLE weakness due to pain, otherwise 5/5 Assessment/Plan: 1. Right Iliac Wing Fracture: for now WBAT. PT/OT. New CT showed displacement. I spoke with Dr. Saleem: No further treatment, WBAT Added OxyContin 2. Spinal Stenosis: Gabapentin. Analgesia. May need another surgery after she is over fracture. Prednisone taper 3. HTN: HCTZ 4. Spasms: Baclofen for now 5. DVT Prophylaxis: Heparin S/Q 6. Depression: Lexapro 7. Advanced Directives: Full Code 8. Constipation: May use Miralax BID. Dulc Supp PRN 01/05/18 15:51 01/05/18 15:53
[2018-01-05] MEDS ORDERED: Polyethylene Glycol 3350* 17 GM PACKET PO PRN (15:54)
[2018-01-05] MEDS ORDERED: Bisacodyl SUPP* 10 MG SUPP PR PRN (15:54)
[2018-01-05] MEDS: Atorvastatin* 40 MG TAB PO SCH (17:10)
[2018-01-05] MEDS: Amitriptyline TAB* 25 MG PO SCH (21:24)
[2018-01-05] MEDS: Senna TAB PO SCH (21:26)
[2018-01-05] MEDS: Lidocaine Patch REMOVE* 1 NOTE MISC PATCH OFF SCH (21:26)
[2018-01-05] MEDS ORDERED: Calcium Carbonate CHEW TAB* 500 MG (TUMS) PO PRN (22:58)
[2018-01-06] MEDS: Heparin VIAL(*) 5000 UNITS/ML VIAL (FIVE THOUSAND) SUBCUT SCH ×3 (05:10→21:30)
[2018-01-06] MEDS: Levothyroxine TAB* 125 MCG TAB PO SCH (05:10)
[2018-01-06] MEDS: Baclofen TAB* 10 MG PO PRN ×3 (05:33→18:53)
[2018-01-06] MEDS: Acetaminophen TAB* 325 MG PO PRN (05:36)
[2018-01-06] MEDS: Gabapentin CAP(*) 100 MG PO SCH ×3 (09:02→21:28)
[2018-01-06] MEDS: predniSONE TAB* 20 MG PO SCH (09:03)
[2018-01-06] MEDS: Omeprazole CAP* 20 MG PO SCH ×2 (09:03→21:28)
[2018-01-06] MEDS: Docusate CAP* 100 MG PO SCH ×2 (09:03→21:27)
[2018-01-06] MEDS: oxyCODONE SR TAB(*) 15 MG TAB.SR PO SCH ×2 (09:03→21:29)
[2018-01-06] MEDS: CMC:Anastrozole (NF) 1 MG TAB PO SCH (09:04)
[2018-01-06] MEDS: CMC:Escitalopram (NF) 20 MG TAB PO SCH (09:04)
[2018-01-06] MEDS: Hydrochlorothiazide TAB* 25 MG PO SCH (09:05)
[2018-01-06] MEDS: oxyCODONE TAB* 5 MG TAB PO PRN ×3 (10:57→19:11)
[2018-01-06] MEDS: Lidocaine PATCH 5%* 1 PATCH TRANSDERM SCH (10:59)
[2018-01-06] MEDS: Atorvastatin* 40 MG TAB PO SCH (16:52)
--- NOTE | 2018-01-06 17:15 | PN ---
Progress Note Date of Service: 01/06/18 Note: GEORGE SWANSON was visited. Therapy notes read and reviewed. She has continued to do better functionally on OxyContin. She feels ready to go home tomorrow Current Medications: Active Medications Generic Name Dose Route Start Last Admin Trade Name Freq PRN Reason Stop Dose Admin Acetaminophen 650 mg 01/02/18 13:17 01/06/18 05:36 Tylenol Tab* PO 650 mg Q6H PRN Administration FEVER/PAIN Amitriptyline HCl 75 mg 01/02/18 21:00 01/05/18 21:24 Elavil Tab* PO 75 mg BEDTIME CHRIS Administration Anastrozole 1 mg 01/03/18 09:00 01/06/18 09:04 Arimidex (Nf) PO 1 mg DAILY CHRIS Administration Atorvastatin Calcium 40 mg 01/03/18 17:00 01/06/18 16:52 Lipitor* PO 40 mg 1700 CHRIS Administration Baclofen 5 mg 01/02/18 19:06 01/06/18 09:04 Lioresal Tab* PO 5 mg TID PRN Administration SPASMS Bisacodyl 10 mg 01/05/18 15:54 Dulcolax Supp* ND DAILY PRN CONSTIPATION Calcium Carbonate 1,000 mg 01/05/18 22:58 Tums* PO Q4H PRN DYSPEPSIA Docusate Sodium 100 mg 01/02/18 21:00 01/06/18 09:03 Colace Cap* PO 100 mg BID CHRIS Administration Escitalopram Oxalate 20 mg 01/03/18 09:00 01/06/18 09:04 Lexapro (Nf) PO 20 mg DAILY CHRIS Administration Gabapentin 100 mg 01/02/18 14:00 01/06/18 14:09 Neurontin Cap(*) PO 100 mg TID CHRIS Administration Heparin Sodium (Porcine) 5,000 units 01/02/18 14:00 01/06/18 14:08 Heparin Vial(*) SUBCUT 5,000 units Q8HR CHRIS Administration Hydrochlorothiazide 12.5 mg 01/03/18 09:00 01/06/18 09:05 Hydrodiuril Tab* PO 12.5 mg DAILY CHRIS Administration Levothyroxine Sodium 125 mcg 01/03/18 06:00 01/06/18 05:10 Synthroid Tab* PO 125 mcg DAILY@0600 CHRIS Administration Lidocaine 1 patch 01/03/18 09:00 01/06/18 10:59 Lidoderm 5% Patch* TRANSDERM 1 patch DAILY CHRIS Administration Magnesium Hydroxide 30 ml 01/02/18 13:17 01/05/18 13:13 Milk Of Magnbeth Liq* PO 30 ml Q6H PRN Administration CONSTIPATION Omeprazole 40 mg 01/02/18 21:00 01/06/18 09:03 Prilosec Cap* PO 40 mg BID CHRIS Administration Oxycodone HCl 10 mg 01/02/18 13:54 01/06/18 15:06 Roxycodone Tab* PO 10 mg Q4H PRN Administration PAIN - SEVERE Oxycodone HCl 15 mg 01/03/18 21:00 01/06/18 09:03 Oxycontin(*) PO 15 mg Q12HR CHRIS Administration Pharmacy Profile Note 1 note 01/03/18 21:00 01/05/18 21:26 Lidocaine Patch Remove* PATCH OFF Not Given 2100 CHRIS Polyethylene Glycol/Electrolytes 17 gm 01/05/18 15:54 01/05/18 17:10 Miralax* PO 17 gm BID PRN Administration CONSTIPATION Prednisone 20 mg 01/05/18 09:00 01/06/18 09:03 Deltasone Tab* PO 01/07/18 23:59 20 mg DAILY CHRIS Administration Prednisone 10 mg 01/08/18 09:00 Deltasone Tab* PO 01/10/18 23:59 DAILY CHRIS Senna 2 tab 01/02/18 21:00 01/05/18 21:26 Senokot Tab* PO 2 tab BEDTIME CHRIS Administration Vital Signs: Vital Signs Temp Pulse Resp BP Pulse Ox 98.0 F 88 18 127/83 98 01/06/18 16:31 01/06/18 16:31 01/06/18 16:32 01/06/18 16:31 01/06/18 16:43 Exam: GENERAL: No distress, alert and oriented LUNGS: Clear HEART: reg rhythm ABDOMEN: Soft +BS EXTREMITIES: Tender over right lat side, no edema NEUROLOGIC: alert oriented. Exam shows RLE weakness due to pain, otherwise 5/5 Assessment/Plan: 1. Right Iliac Wing Fracture: for now WBAT. PT/OT. New CT showed displacement. I spoke with Dr. Saleem: No further treatment, WBAT Added OxyContin 2. Spinal Stenosis: Gabapentin. Analgesia. May need another surgery after she is over fracture. Prednisone taper 3. HTN: HCTZ 4. Spasms: Baclofen for now 5. DVT Prophylaxis: Heparin S/Q 6. Depression: Lexapro 7. Advanced Directives: Full Code 8. Constipation: May use Miralax BID. Dulc Supp PRN 01/06/18 17:15
[2018-01-06] MEDS: Amitriptyline TAB* 25 MG PO SCH (21:27)
[2018-01-06] MEDS: Senna TAB PO SCH (21:27)
[2018-01-06] MEDS: Lidocaine Patch REMOVE* 1 NOTE MISC PATCH OFF SCH (21:32)
[2018-01-07] MEDS: Levothyroxine TAB* 125 MCG TAB PO SCH (05:24)
[2018-01-07] MEDS: Heparin VIAL(*) 5000 UNITS/ML VIAL (FIVE THOUSAND) SUBCUT SCH ×2 (05:24→13:29)
[2018-01-07 06:12] VITALS: BP 122/68
[2018-01-07] MEDS: CMC:Anastrozole (NF) 1 MG TAB PO SCH (08:15)
[2018-01-07] MEDS: Docusate CAP* 100 MG PO SCH (08:16)
[2018-01-07] MEDS: Gabapentin CAP(*) 100 MG PO SCH ×2 (08:17→13:29)
[2018-01-07] MEDS: Hydrochlorothiazide TAB* 25 MG PO SCH (08:18)
[2018-01-07] MEDS: Lidocaine PATCH 5%* 1 PATCH TRANSDERM SCH (08:18)
[2018-01-07] MEDS: Omeprazole CAP* 20 MG PO SCH (08:19)
[2018-01-07] MEDS: predniSONE TAB* 20 MG PO SCH (08:20)
[2018-01-07] MEDS: oxyCODONE SR TAB(*) 15 MG TAB.SR PO SCH (08:20)
[2018-01-07] MEDS: CMC:Escitalopram (NF) 20 MG TAB PO SCH (08:33)
[2018-01-07] MEDS: oxyCODONE TAB* 5 MG TAB PO PRN (09:13)
[2018-01-07] MEDS: Baclofen TAB* 10 MG PO PRN (11:13)
--- NOTE | 2018-01-08 01:33 | DS ---
CC: Dr. Anuja Garcia.* DISCHARGE SUMMARY: DATE OF ADMISSION: 01/02/18 DATE OF DISCHARGE: 01/07/18 DISCHARGE DIAGNOSES: 1. Right iliac wing fracture. 2. Spinal stenosis. 3. Hypothyroidism. 4. Gastroesophageal reflux disease. 5. Peripheral neuropathy. 6. Depression. HISTORY OF PRESENT ILLNESS AND HOSPITAL COURSE: For complete history and the events leading up to her rehab stay, please see the history and physical dictated by me on 01/02/18. While on the rehab unit, the patient was initially working with therapy. She felt a pop on the right side of her back and hip. She had increased pain following that. A CAT scan of her pelvis was done, which showed a fracture of the right iliac ring, which was now displaced to approximately 1 shaft width. After discussing this with Orthopedics, they felt that she should remain weightbearing as tolerated and that no surgery was really necessary at the present time. The patient's pain medications were adjusted because of her increased pain. She was started on OxyContin 15 mg twice a day. This seemed to help her a great deal. Following that, the patient worked with physical therapy and occupational therapy and did much better. She did make gains with both disciplines while on the rehab unit. With physical therapy at the time of admission, the patient required contact guard for transfers, she was able to ambulate 20 feet with contact guard. With occupational therapy at the time of admission, the patient required supervision for upper body dressing, min-assist for lower body dressing, min-assist for bathing, contact guard for toileting, and contact guard for toilet transfers. At the time of discharge, she was independent in all activities, she was able to walk a 150 feet with a rolling walker independently. It was felt the patient was safe to return to her apartment. She was discharged home on . The patient was examined by me on the date of discharge and her examination was stable. DISCHARGE DIET: Regular. DISCHARGE MEDICATIONS: 1. Tylenol 650 mg every 6 hours as needed. 2. Elavil 75 mg at bedtime. 3. Lipitor 40 mg at 5 p.m. 4. Baclofen 5 mg 3 times a day as needed. 5. Lexapro 20 mg daily. 6. Gabapentin 100 mg 3 times a day. 7. Omeprazole 40 mg twice daily. 8. Synthroid 125 mcg daily. 9. Oxycodone 5 to 10 mg every 4 hours. 10. OxyContin 20 mg twice daily for 1 week, then decreasing to 10 mg twice daily for 1 week and then stopping. 11. MiraLAX 17 g twice daily as needed. 12. Prednisone 10 mg daily for 3 days, then stopping. 13. Arimidex 1 mg daily. 14. Hydrochlorothiazide 12.5 mg daily. Services after discharge through visiting nurse service. She will have home nursing, home physical therapy, and a home health aide. FOLLOW UP PLANS: Follow up with Dr. Villeda in 1 month, Dr. Nakia Bennett in 1 month, and with her primary care doctor, Dr. Anuja Garcia. Time for this discharge was approximately 55 minutes of which greater than half of that was spent with the patient explaining post-rehab pain management, steroid taper and follow up plans [id number]/[facility] #: [id number] MTDD
[2018-01-08] MEDS ORDERED: predniSONE TAB* 10 MG PO SCH (09:00)
== END 2018-01-07 14:45 | disposition home health service (06) | DRG 561 ==
LOC: PMRU 12:03
PROVIDERS: ADMIT Physical Medicine & Rehabilitation; ATTEND Physical Medicine & Rehabilitation
PROC: F07Z5ZZ Bed Mobility Treatment (ICD-10-PCS; principal; 2018-01-02)
PROC: F07Z9ZZ Gait Training/Functional Ambulation Treatment (ICD-10-PCS; 2018-01-02)
PROC: F07Z8ZZ Transfer Training Treatment (ICD-10-PCS; 2018-01-02)
PROC: F08Z0ZZ Bathing/Showering Techniques Treatment (ICD-10-PCS; 2018-01-02)
PROC: F08Z1ZZ Dressing Techniques Treatment (ICD-10-PCS; 2018-01-02)
PROC: F08Z3ZZ Feeding/Eating Treatment (ICD-10-PCS; 2018-01-02)
DX: S32.391D Other fracture of right ilium, subsequent encounter for fracture with routine healing (principal); W18.30XD Fall on same level, unspecified, subsequent encounter; G62.9 Polyneuropathy, unspecified; M48.061 Spinal stenosis, lumbar region without neurogenic claudication; E03.9 Hypothyroidism, unspecified; M62.838 Other muscle spasm; K59.00 Constipation, unspecified; K21.9 Gastro-esophageal reflux disease without esophagitis; F32.9 Major depressive disorder, single episode, unspecified; Z85.3 Personal history of malignant neoplasm of breast; Z79.891 Long term (current) use of opiate analgesic; Z79.899 Other long term (current) drug therapy; Z88.2 Allergy status to sulfonamides
CPT/HCPCS: 36415; 72192; 80053; 85025; A9270-GY; J1644; J7512

== ENCOUNTER 2018-02-03 13:36 | Emergency (ER) | payer MEDICARE, OTHER ==
--- OUTSIDE RECORDS SUMMARY | 2018-02-03 13:44 | XMS REPORT ---
:1945 External Reference #:[id number] Author Organization [facility] Address [address] [place] [address] [place] [address] Phone [phone] Care Team Providers Name Role Phone Anuja Garcia MD Primary Care Physician Unavailable Payers Type Date Identification Numbers Payment Provider Subscriber Medicare Primary Policy Number: [id number] Medicare Radha Ferro PayID: [id number] [address] [place] [address] Medigap Part B Policy Number: [id number] Medico Roselyn Radha Ferro PayID: [id number] Medico Ros[employer] [address] [address] [place] [address] Problems Date Description Provider Status Onset: 11/28/2017 [...] Comments Marital Status 2018 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, 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 [employer] ETOH Use Drinks 3 Alcoholic Beverages [...] mouth Anuja s every day Darrel Garcia Synthroid Active Tablets 125mcg 1 by mouth Unknown every day Atorvastatin Active Tablets 40mg 1 by mouth Unknown every day Amitriptyline Active Tablets 25mg 3 at Unknown bedtime Melatonin ER Active Tablets 10mg 1 tab by Unknown ER mouth at bedtime Aspir-81 Active Tablets 81mg [address] every day Baclofen Active Tablets 5mg 1 PO tid Gabapentin Active Capsules 100mg 90cap 1 by mouth Anuja s three Darrel Garcia times a day Arimidex Active Tablets 1mg 1 PO qd Lansoprazole Active Capsules 30mg take 2 DR capsules by mouth twice a day Anastrozole Active Tablets 1mg 1 by mouth Unknown every day Oxycodone HCL ER Active Tab ER 20mg 1 tab po Unknown / 12H every Abuse-Det 12hrs Oxycodone HCL Active Tablets 10mg 1 by mouth Unknown /0000 every 6 hours as needed pain Cyclobenzaprine 12/23 Hx Tablets 10mg 30tab 1 tablet M25.551 Nakia HCL s by mouth Darrel Bennett - q8 hours 01/07 as needed muscle spasms Percocet 12/23 Hx Tablets 5-325mg 60tab 1-2 tabs M25.551 Nakia s by mouth Darrel Bennett - q8 as 01/07 needed 2018 pain Tylenol With 12/05 Hx Tablets 300-30mg 120ta 1 PO 4 Anuja Codeine #3 bs times Darrel Garcia - daily as 01/17 needed for pain Zithromax Z-Luis A 05/30 Hx Tablets 250mg 1Pack as per Karson /2017 directions Darrel Ferro - 01/08 Prevacid Hx Capsules 30mg 120ca 2 by mouth Anuja /0000 DR ps bid Darrel Garcia - 01/17 Triamterene/Hydr Hx Tablets 37.5-25mg 90tab 1 by mouth Anuja ochlorothiazide /0000 s every day Darrel Garcia - 01/16 Anastrozole Hx Tablets 1mg one daily Unknown /0000 - 01/[address] 30mg 1 by mouth Unknown /0000 Part every day - 01/17 Krill Oil Hx Capsules 300mg Unknown /0000 - 01/17 Omeprazole Hx Capsules 40mg 1 PO bid Unknown /0000 DR - 01/17 Cyclobenzaprine Hx Tablets 10mg take 1 Unknown HCL /0000 tablet by - mouth 01/16 hours if needed for muscle spasm maximu Oxycodone-Acetam Hx Tablets 5-325mg Unknown inophen /0000 - 01/16 Prednisone 00 Hx Tablets 10mg 10mg every Unknown /0000 day - 01/17 Immunizations CPT Code Status Date Vaccine Lot # [id number] Given 11/15/2017 Zoster (Shingles) Vaccine (HZV), Recombinant, Subunit, Adjuvanted Vital Signs Date Vital Result Comment 01/17/2018 Height 61.5 inches 5'1.50" Weight 193.00 lb Heart Rate 84 /min BP Systolic Sitting 114 mmHg BP Diastolic Sitting 74 mmHg O2 % BldC Oximetry 99 % BMI (Body Mass Index) 35.9 kg/m2 01/17/2018 Height 61.5 inches 5'1.50" Weight 193.00 lb Heart Rate 79 /min Respiratory Rate 16 /min Pain Level 8 BMI (Body Mass Index) 35.9 kg/m2 12/23/2017 Height 61.5 inches 5'1.50" Weight 193.00 [...] Test Date Test Result H/L Range Note Urinalysis Profile 12/30/2017 Urine Color Straw Urine Appearance Clear Urine Specific [place] 1.006 Low 1.010-1.030 Urine pH 7.0 5-9 Urine Urobilinogen Negative Negative Urine Ketones Negative Negative Urine Protein Negative Negative Urine Leukocytes Negative Negative Urine Blood Negative Negative Urine Nitrite Negative Negative Urine Bilirubin Negative Negative Urine Glucose Negative Negative Comp Metabolic Panel 12/30/2017 Sodium 135 mmol/L 135-145 Potassium 3.4 mmol/L Low 3.5-5.0 Chloride 99 mmol/L Low 101-111 Co2 Carbon Dioxide 31 mmol/L 22-32 Anion Gap 5 mmol/L 2-11 Glucose 104 mg/dL High 70-100 Blood Urea Nitrogen 15 mg/dL 6-24 Creatinine 0.83 mg/dL 0.51-0.95 BUN/Creatinine Ratio 18.1 8-20 Calcium 8.4 mg/dL Low 8.6-10.3 Total Protein 7.2 g/dL 6.4-8.9 Albumin 3.8 g/dL 3.2-5.2 Globulin 3.4 g/dL 2-4 Albumin/Globulin Ratio 1.1 1-3 Total Bilirubin 0.30 mg/dL 0.2-1.0 Alkaline Phosphatase 109 U/L High 34-104 Alt 14 U/L 7-52 Ast 20 U/L 13-39 Egfr Non- 67.4 >60 Egfr 81.5 >60 1 Laboratory test finding 12/30/2017 Lipase < 10 U/L Low 11.0-82.0 CRP High Sensitivity 16.63 mg/L High <2.00 CBC Auto Diff 12/30/2017 White Blood Count 6.9 10^3/uL 3.5-10.8 Red Blood Count 3.95 10^6/uL Low 4.00-5.40 Hemoglobin 11.9 g/dL Low 12.0-16.0 Hematocrit 35 % 35-47 Mean Corpuscular Volume 88 fL 80-97 Mean Corpuscular Hemoglobin 30 pg 27-31 Mean Corpuscular HGB Conc 34 g/dL 31-36 Red Cell Distribution Width 14 % 10.5-15 Platelet Count 347 10^3/uL 150-450 Mean Platelet Volume 7.5 um3 7.4-10.4 Abs Neutrophils 4.8 10^3/uL 1.5-7.7 Abs Lymphocytes 1.2 10^3/uL 1.0-4.8 Abs Monocytes 0.6 10^3/uL 0-0.8 Abs Eosinophils 0.3 10^3/uL 0-0.6 Abs Basophils 0.1 10^3/uL 0-0.2 Abs Nucleated RBC 0 10^3/uL Granulocyte % 69.8 % 38-83 Lymphocyte % 17.0 % Low 25-47 Monocyte % 8.1 % High 0-7 Eosinophil % 3.9 % 0-6 Basophil % 1.2 % 0-2 Nucleated Red Blood Cells % 0 Laboratory test finding 12/30/2017 Erythrocyte Sed Rate 58 mm/Hr High 0- 40 Basic Metabolic Panel 12/23/2017 Sodium 136 mmol/L 135-145 Potassium 3.6 mmol/L 3.5-5.0 Chloride 100 mmol/L Low 101-111 Co2 Carbon Dioxide 30 mmol/L 22-32 Anion Gap 6 mmol/L 2-11 Glucose 88 mg/dL 70-100 Blood Urea Nitrogen 20 mg/dL 6-24 Creatinine 1.01 mg/dL High 0.51-0.95 BUN/Creatinine Ratio 19.8 8-20 Calcium 9.3 mg/dL 8.6-10.3 Egfr Non- 53.7 >60 Egfr 65.0 >60 2 Laboratory test finding 12/23/2017 Vitamin D Total 25(Oh) 41.6 ng/mL 20- 50 Protein Electrophoresis 12/02/2017 Total Protein(Pep) 7.1 g/dL 6.3 - 7.9 Albumin 3.3 g/dL 3.4-4.7 Alpha-1 Globulin 0.2 g/dL 0.1-0.3 Alpha-2 Globulin 1.1 g/dL 0.6-1.0 Beta Globulin 1.3 g/dL 0.7-1.2 Gamma Globulin 1.2 g/dL 0.6-1.6 Albumin/Globulin Ratio 0.88 Impression See Comment 3 Laboratory test finding 12/02/2017 Erythrocyte Sed Rate 29 mm/Hr 0-40 C Reactive Protein 1.77 mg/L <8.01 CBC Auto Diff 12/02/2017 White Blood Count [...] 0-2 Nucleated Red Blood Cells % 0 Comp Metabolic Panel 11/18/2017 Sodium 140 mmol/L [...] Egfr Non- 67.4 >60 Egfr 81.5 >60 4 Lipid Profile (Trig/Chol/HDL) 11/18/2017 Triglycerides 107 mg/dL 5 Cholesterol 208 mg/dL 6 HDL Cholesterol 80.5 mg/dL 7 LDL Cholesterol 106 mg/dL 8 1 Because ethnic data is not always [...] 5 Kidney failure <15 (or dialysis) 2 Because ethnic data is not always readily [...] 15-29 5 Kidney failure <15 (or dialysis) 3 RESULT: No apparent monoclonal protein on serum electrophoresis. Test Performed by: [address] [address] 4 Because ethnic data is not always readily [...] 15-29 5 Kidney failure <15 (or dialysis) 5 Desirable: <150 Borderline High: 150-199 High: 200-499 Very High: >500 6 Desirable: <200 Borderline High: 200-239 High: >239 7 Low: <40 Desirable: 40-60 High: >60 8 Desirable: <100 Near Optimal: 100-129 Borderline High: 130-159 High: 160-189 Very High: >189 Procedures Date CPT Code Description Status 12/05/2017 Mammogram Completed Encounters Type Date Location Provider CPT E/M Dx Office Visit 12/30/2017 [facility] 57307 M51.17 7:00a Of Moon Villeda MD M48.061 S32.301D Office Visit 12/30/2017 10:23a [facility] Man Saleem 25328 S32.301A Of [facility] Rojo Office Visit 12/23/2017 1:00p [facility] Nakia Bennett M.D. 35047 M25.551 Of [facility] M16.11 M25.562 M25.462 M17.12 W19.xxxA M54.5 Office Visit 12/20/2017 3:00p [facility] 41888 M51.36 Of [facility] MD Ronal M51.17 M47.26 Office Visit 12/10/2017 8:30a [facility] [place] 43416 M51.36 Of Moon Villeda MD M51.17 M47.26 Z98.1 Office Visit 11/28/2017 4:00p [facility] Internal Medicine Anuja Garcia, [address]2740 M54.30 - Merary Rojo M85.80 Z85.3 M25.559 M54.9 Office Visit 11/12/2017 10:40a [facility] Internal Medicine Anuja Garcia, 35705 M54.9 - Merary Rojo K21.9 M81.0 R03.0 Z85.3 Z85.828 F33.9 Z68.36 Plan of Care Future Appointment(s):03/20/2018 10:20 am - Anuja Garcia M.D. at [facility] Internal Medicine - Bekgybvvs63/18/2018 2:00 pm - Leah Villeda MD at [facility]01/17/2018 - Nakia Bennett M.D.S32.301D Unsp fracture of right ilium, subs for fx w routn healFollow up:Follow up: 2 gmfbvU59.551 Pain in right hipM48.061 Spinal stenosis, lumbar region without neurogenic vmqdtG64.5 Low back painW19.xxxD Unspecified fall, subsequent encounter
--- OUTSIDE RECORDS SUMMARY | 2018-02-03 13:44 | XMS REPORT ---
:1945 External Reference #:[id number] Author Organization [facility] Address [address] [place] [address] [place] [address] Phone [phone] Care Team Providers Name Role Phone Anuja Garcia MD Primary Care Physician Unavailable Payers Type Date Identification Numbers Payment Provider Subscriber Medicare Primary Policy Number: [id number] Medicare Radha Ferro PayID: [id number] [address] [place] [address] Medigap Part B Policy Number: [id number] [employer] Ros[employer] Radha Ferro PayID: [id number] [employer] [address] [address] [place] [address] Problems Date Description Provider Status Onset: 11/28/2017 [...] Comments Marital Status 2018 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, 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 [employer] ETOH Use Drinks 3 Alcoholic Beverages [...] Anuja Oxalate s every day Darrel Garcia Synthroid Active Tablets 125mcg 1 by mouth Unknown / every day Atorvastatin Active Tablets 40mg 1 by mouth Unknown Calcium every day Triamterene/Hydr Active Tablets 37.5-25mg 90tab 1 by mouth Anuja ochlorothiazide s every day Darrel Garcia Amitriptyline Active Tablets 25mg 3 at Unknown HCL [address] bed[address] Active C[address] 30mg 1 by mouth Unknown Part every day Melatonin ER Active Tablets 10mg 1 tab by Unknown / ER mouth at bedtime Krill Oil Active Capsules 300mg Unknown /0000 Aspir-81 Active Tablets 81mg 1 by mouth Unknown / DR every day Baclofen Active Tablets 5mg 1 PO tid Unknown Gabapentin Active Capsules 100mg 1 PO tid Unknown / Omeprazole Active Capsules 40mg 1 PO bid Unknown / DR Arimidex Active Tablets 1mg 1 PO qd Unknown Cyclobenzaprine Active Tablets 10mg take 1 Unknown HCL 0000 tablet by mouth every 8 hours if needed for muscle spasm maximu Oxycodone-Acetam Active Tablets 5-325mg Unknown inophen Lansoprazole Active Capsules 30mg take [address] capsules by mouth twice a day Cyclobenzaprine 12/23 Hx Tablets 10mg 30tab 1 tablet M25.551 Nakia s by mouth Darrel Bennett - q8 hours 01/07 as needed muscle spasms Percocet 12/23 Hx Tablets 5-325mg 60tab 1-2 tabs M25.551 Nakia s by mouth Darrel Bennett - q8 as 01/07 needed pain Zithromax Z-Luis A 05/30 Hx Tablets 250mg 1Pack as per [facility] /2017 directions Darrel Ferro - 01/08 Prevacid Hx Capsules 30mg 120ca 2 by mouth Anuja /0000 DR maverick Garcia M.D. - 01/17 Anastrozole Hx Tablets 1mg one daily - 01/08 Immunizations CPT Code Status Date Vaccine Lot # [id number] Given 11/15/2017 Zoster (Shingles) Vaccine (HZV), Recombinant, [...] Test Result H/L Range Note Laboratory test 12/30/2017 Erythrocyte Sed Rate 58 mm/Hr High 0-40 finding CBC Auto Diff 12/30/2017 White Blood Count [...] 0-2 Nucleated Red Blood Cells % 0 Urinalysis Profile 12/30/2017 Urine Color Straw Urine Appearance Clear Urine Specific [place] 1.006 Low 1.010-1.030 Urine pH 7.0 5-9 Urine Urobilinogen Negative Negative Urine Ketones Negative Negative Urine Protein Negative Negative Urine Leukocytes Negative Negative Urine Blood Negative Negative Urine Nitrite Negative Negative Urine Bilirubin Negative Negative Urine Glucose Negative Negative Laboratory test finding 12/30/2017 Lipase < 10 U/L Low 11.0-82.0 CRP High Sensitivity 16.63 mg/L High <2.00 Comp Metabolic Panel 12/30/2017 Sodium 135 mmol/L [...] Egfr 81.5 >60 1 Laboratory test finding 12/23/2017 Vitamin D Total [...] Egfr 65.0 >60 2 Laboratory test finding 12/02/2017 Erythrocyte Sed Rate 29 mm/Hr 0-40 C Reactive Protein 1.77 mg/L <8.01 Protein Electrophoresis 12/02/2017 Total Protein(Pep) 7.1 g/dL 6.3 - 7.9 Albumin 3.3 g/dL 3.4-4.7 Alpha-1 Globulin 0.2 g/dL 0.1-0.3 Alpha-2 Globulin 1.1 g/dL 0.6-1.0 Beta Globulin 1.3 g/dL 0.7-1.2 Gamma Globulin 1.2 g/dL 0.6-1.6 Albumin/Globulin Ratio 0.88 Impression See Comment 3 CBC Auto Diff 12/02/2017 White Blood Count [...] 0-2 Nucleated Red Blood Cells % 0 Lipid Profile (Trig/Chol/HDL) 11/18/2017 Triglycerides 107 mg/dL 4 Cholesterol 208 mg/dL 5 HDL Cholesterol 80.5 mg/dL 6 LDL Cholesterol 106 mg/dL 7 Comp Metabolic Panel 11/18/2017 Sodium 140 mmol/L [...] Egfr Non- 67.4 >60 Egfr 81.5 >60 8 1 Because ethnic data is not [...] protein on serum electrophoresis. Test Performed by: [address] [id number] 4 Desirable: <150 Borderline High: 150-199 High: 200-499 Very High: >500 5 Desirable: <200 Borderline High: 200-239 High: >239 6 Low: <40 Desirable: 40-60 High: >60 7 Desirable: <100 Near Optimal: 100-129 Borderline High: 130-159 High: 160-189 Very High: >189 8 Because ethnic data is not always readily [...] E/M Dx Office Visit 12/30/2017 [facility] Leah 38937 M51.17 7:00a Of Moon Villeda MD M48.061 S32.301D Office Visit 12/30/2017 10:23a [facility] Man Saleem 55026 S32.301A Of Celina Rojo Office Visit 12/23/2017 1:00p [facility] Nakia Bennett M.D. 80813 M25.551 Of Celina M16.11 M25.562 M25.462 M17.12 W19.xxxA M54.5 Office Visit 12/20/2017 3:00p [facility] Leah 15999 M51.36 Of Moon Villeda MD M51.17 M47.26 Office Visit 12/10/2017 8:30a [facility] Vassilios 91743 M51.36 Of Moon Villeda MD M51.17 M47.26 Z98.1 Office Visit 11/28/2017 4:00p [facility] Anuja Garcia 48145 M54.30 - Merary Rojo M85.80 Z85.3 M25.559 M54.9 Office Visit 11/12/2017 10:40a [facility] Anuja Garcia 18497 M54.9 - Merary Rojo K21.9 M81.0 R03.0 Z85.3 Z85.828 F33.9 Z68.36 Plan of Care Future Appointment(s):01/28/2018 2:00 pm - Leah Villeda MD at [facility]01/17/2018 - Nakia Bennett M.D.S32.301D Unsp fracture of right ilium, subs for fx w routn healFollow up:Follow up: 2 flzckX04.551 Pain in right hipNew Xrays:Hip Right 2 Views And Pelvis [id number] - 98574L09.061 Spinal stenosis, lumbar region without neurogenic ujednX00.5 Low back painW19.xxxD Unspecified fall, subsequent encounter
--- NOTE | 2018-02-03 14:01 | UC ---
Ear Complaint HPI - HPI Summary HPI Summary: 72 yo female presents with left ear plugged. She tells me that she has had issues with cerumen buildup in the past and has had to have her ears flushed. Last night she felt some decreased hearing in her left ear. This morning had some pressure and increased itching - says it feels like this every time she has wax build up. Denies fever, chill, recent illness, or swimming. - History of Current Complaint Chief Complaint: UCEar Stated Complaint: PLUGGED EAR Time Seen by Provider: 02/03/18 14:01 Hx Obtained From: Patient Onset/Duration: Sudden Onset Severity Initially: Mild Severity Currently: Mild Pain Intensity: 1 Pain Scale Used: 0-10 Numeric - Allergies/Home Medications Allergies/Adverse Reactions: Allergies Allergy/AdvReac Type Severity Reaction Status Date / Time Sulfa (Sulfonamide Allergy Hives Verified 02/03/18 13:49 Antibiotics) PMH/Surg Hx/FS Hx/Imm Hx Endocrine History: Hypothyroidism, Dyslipidemia Cardiovascular History: Hypertension GI/ History: Gastroesophageal Reflux Psychological History: Anxiety, Depression - Surgical History Surgical History: Yes Surgery Procedure, Year, and Place: [facility] SURGERY 2016. RIGHT WRIST. HERNIA REPAIR. Pelvic fracture. TONSILECTOMY - Family History Known Family History: Positive: Unknown Negative: Blood Disorder - Social History Occupation: Retired Lives: With Family Alcohol Use: Rare Substance Use Type: Prescribed Substance Use Comment - Amount & Last Used: pain killers Smoking Status (MU): Never Smoked Tobacco - Immunization History Most Recent Influenza Vaccination: 2017 Most Recent Pneumonia Vaccination: in past Review of Systems Constitutional: Negative Skin: Negative Eyes: Negative ENT: Ear Ache Respiratory: Negative Cardiovascular: Negative Gastrointestinal: Negative Neurological: Negative Psychological: Negative All Other Systems Reviewed And Are Negative: Yes Physical Exam - Summary Physical Exam Summary: GENERAL: NAD. WDWN. No pain distress. SKIN: No rashes, sores, lesions, or open wounds. HEENT: Head: AT/NC Eyes: EOM intact. Conjunctiva clear without inflammation or discharge. Ears: Hearing grossly normal. RIGHT: TM intact WNL scant cerumen. LEFT: Moderate cerumen within canal. TM not visualized. Nose: Nasal mucosa pink and moist. NTTP maxillary and frontal sinus. Throat: Posterior oropharynx without exudates, erythema, or tonsillar enlargement. Uvula midline. NECK: Supple. Nontender. No lymphadenopathy. CHEST: CTAB. No r/r/w. No accessory muscle use. Breathing comfortably and in no distress. CV: RRR. Without m/r/g. Pulses intact. NEURO: Alert. PSYCH: Age appropriate behavior. Triage Information Reviewed: Yes Vital Signs: Initial Vital Signs Temp 99.2 F 02/03/18 13:44 Pulse 93 02/03/18 13:44 Resp 18 02/03/18 13:44 BP 88/57 02/03/18 13:44 Pulse Ox 96 02/03/18 13:44 Vital Signs Reviewed: Yes Ear Complaint Course/Dx - Course Course Of Treatment: Repeat BP 117/75 Left arm. Left ear irrigated with resolution of symptoms. TM intact and WNL s/p. - Differential Dx/Diagnosis Provider Diagnoses: Cerumen impaction Discharge - Sign-Out/Discharge Documenting (check all that apply): Patient Departure All imaging exams completed and their final reports reviewed: No Studies - Discharge Plan Condition: Stable Disposition: HOME Patient Education Materials: Cerumen Impaction (ED) Referrals: Anuja Garcia MD [Primary Care Provider] - Additional Instructions: If you develop a fever, shortness of breath, chest pain, new or worsening symptoms - please call your PCP or go to the ED. 1) May try [id number] DEBROX drops to soften your ear wax - Billing Disposition and Condition Condition: STABLE Disposition: Home
[2018-02-03 14:27] VITALS: BP 117/75
== END 2018-02-03 14:37 | disposition home or self-care (01) ==
LOC: UCEAST 13:36
DX: H61.22 Impacted cerumen, left ear (principal); Z88.2 Allergy status to sulfonamides
CPT/HCPCS: 99201; G0463

== ENCOUNTER 2018-09-08 11:35 | Emergency (ER) | payer MEDICARE, OTHER ==
--- OUTSIDE RECORDS SUMMARY | 2018-09-08 11:40 | XMS REPORT | Continuity of Care Document ---
:1945 External Reference #:[id number] Author Name Adore Parra Care Team Providers Name Role Phone Anuja Garcia MD Primary Care Physician Unavailable Payers Date Identification Numbers Payment Provider Subscriber Policy Number: [id number] Medicare Radha Ferro PayID: [id number] [address] [place] [address] Policy Number: [id number] Medico Roselyn Radha Ferro PayID: [id number] [employer] [address] [address] [place] [address] Advance Directives Description No Information Available Problems Date Description Provider Status Onset: 11/28/2017 Personal history of primary Anuja Garcia M.D. 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 Active of the pelvic region and thigh Onset: 12/23/2017 Localized, primary osteoarthritis Nakia Bennett M.D. Active Onset: 02/28/2018 Closed fracture pelvis, iliac wing Nakia Bennett M.D. Active Onset: 08/25/2018 Thoracic and lumbosacral neuritis Josias Rutledge MD Active Onset: 05/19/2018 Tibialis tendinitis Nakia Bennett M.D. 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 [employer] ETOH Use Drinks 3 Alcoholic or less Beverages Per Week Tobacco Use Start: Unknown Patient has never smoked Recreational Drug Use Denies Drug Use Smoking Status Reviewed: 08/25/18 Patient has never smoked Exercise Type/Frequency Exercises regularly Allergies, Adverse Reactions, Alerts Date Description Reaction Status Severity Comments 11/12/2017 Sulfa Antibiotics Active Medications Medication Date Status Form Strength Qnty SIG Indications Ordering Provider Zantac 150 08/21 Active Tablets 150mg 30tab take two Krystal Maximum Strength s pill's DAMIEN Hardin every evening Lansoprazole 07/02 Active Capsules 30mg 120ca 2 by mouth ps twice Darrel Gracia daily Miralax 01/17 Active Powder once daily Darrel Garcia Calcium Plus D 11/12 Active 3 daily Darrel Garcia Escitalopram 11/12 Active Tablets 20mg 90tab 1 by mouth Anuja Oxalate s every day Darrel Garcia Synthroid Active Tablets 125mcg 90tab 1 by mouth Anuja /0000 s every day Darrel Garcia Atorvastatin Active Tablets 40mg 30tab 1 by mouth Anuja Calcium s every day Darrel Garcia Amitriptyline Active Tablets 25mg 90tab 1 at Anuja HCL s bedtime Darrel Garcia Cymbalta Active Caps DR 30mg 30cap 1 by mouth Anuja Part s every day Darrel Garcia Melatonin ER Active Tablets 10mg 1 tab by Unknown ER mouth at bedtime Aspir-81 Active Tablets 81mg [address] every day Anastrozole Active Tablets 1mg 1 by mouth every day Oxycodone HCL Active Tablets 10mg 120ta Take One Anuja bs Tablet By Darrel Garcia Mouth Every 6 Hours as Needed For Pain -- Maximum Daily Dose Of 4 Per Day Baclofen Active Tablets 5mg 5mg every Unknown / 6-8 hours as needed for muscle spasm. Rexulti Active Tablets 3mg daily CBD Oil Active 2 drops Oxycodone HCL ER Active Tab ER 20mg 60tab take 1 12H s tablet by Darrel Garcia Abuse-Det mouth every 12 hours -- maximum daily dose of 2 per day Prolia Active Solution 60mg/ml inject Flores 60mg under MD Franchesca the skin every 6 months Omeprazole 07/01 Hx Capsules 20mg 60cap [address] stevens every day Darrel Garcia - 07/02 Meloxicam 04/14 Hx Tablets 15mg 30tab 1 by mouth M76.822 Nakia s every day Darrel Bennett - 08/17 Cyclobenzaprine 12/23 Hx Tablets 10mg 30tab 1 tablet M25.551 Nakia HCL /2017 s by mouth Darrel Bennett - q8 hours 01/07 as needed muscle spasms Percocet 12/23 Hx Tablets 5-325mg 60tab 1-2 tabs M25.551 Nakia /2017 s by mouth Darrel Bennett - q8 as 01/07 needed /2017 pain Tylenol With 12/05 Hx Tablets 300-30mg 120ta 1 PO 4 Anuja Codeine # bs times Darrel Garcia - daily as 01/17 needed for pain Zithromax Z-Luis A 05/30 Hx Tablets 250mg 1Pack as per ruchier /2017 directions Darrel Ferro - 01/08 Prevacid Hx Capsules 30mg 120ca 2 by mouth Anuja /0000 DR temple bid Darrel Garcia - 01/17 Triamterene/Hydr Hx Tablets 37.5-25mg 90tab 1 by mouth Anuja ochlorothiazide s every day Darrel Garcia - 01/16 Anastrozole Hx Tablets 1mg one daily - 01/08 Krill Oil Hx Capsules 300mg - 01/17 Baclofen Hx Tablets 5mg 100ta 1 by mouth Anuja /0000 bs chetan Garcia M.D. - times a Gabapentin Hx Capsules 100mg 90cap 1 by mouth Anuja /0000 s chetan Garcia M.D. - times a Omeprazole Hx Capsules 40mg 1 PO bid Unknown /0000 DR - 01/17 Arimidex Hx Tablets 1mg 1 PO qd Unknown /0000 - 06/16 Cyclobenzaprine Hx Tablets 10mg take 1 Unknown HCL 0000 tablet by - mouth 01/16 every hours if needed for muscle spasm maximu Oxycodone-Acetam Hx Tablets 5-325mg Unknown inophen /0000 - 01/16 Lansoprazole Hx Capsules 30mg take [address] capsules - by mouth 07/01 twice day Prednisone Hx Tablets 10mg 10mg every Unknown /0000 day - 01/17 Immunizations CPT Code Status Date Vaccine Lot # [id number] Given 11/15/2017 Zoster (Shingles) Vaccine (HZV), Recombinant, Subunit, Adjuvanted Vital Signs Date Vital Result Comment 08/25/2018 7:58am Height 61 inches 5'1" Weight 186.00 lb Heart Rate 78 /min Respiratory Rate 16 /min Body Temperature 95.9 F Pain Level 7 BMI (Body Mass Index) 35.1 kg/m2 08/21/2018 10:55am Height 61 inches 5'1" Weight 186.00 lb Heart Rate 78 /min BP Systolic 180 mmHg 125/82 usually BP Diastolic 100 mmHg 125/82 usually Respiratory Rate 18 /min Body Temperature 97.0 F O2 % BldC Oximetry 100 % BMI (Body Mass Index) 35.1 kg/m2 08/18/2018 11:13am Height 61 inches 5'1" Weight 186.00 lb Heart Rate 84 /min BP Systolic Sitting 128 mmHg BP Diastolic Sitting 85 mmHg O2 % BldC Oximetry 98 % BMI (Body Mass Index) 35.1 kg/m2 07/04/2018 11:20am Height 61 inches 5'1" Heart Rate 72 /min BP Systolic 130 mmHg BP Diastolic 82 mmHg Respiratory Rate 18 /min Body Temperature 97.0 F Pain Level 2 06/16/2018 2:30pm Height 61 inches 5'1" Heart Rate 77 /min BP Systolic Sitting 131 mmHg BP Diastolic Sitting 79 mmHg O2 % BldC Oximetry 95 % 05/26/2018 11:14am Height 61 inches 5'1" Weight 189.00 lb Heart Rate 92 /min Respiratory Rate 16 /min Body Temperature 97.1 F Pain Level 5 BMI (Body Mass Index) 35.7 kg/m2 05/19/2018 12:59pm Height 61 inches 5'1" Weight 189.00 lb BP Systolic 122 mmHg BP Diastolic 83 mmHg Respiratory Rate 17 /min Pain Level 9 BMI (Body Mass Index) 35.7 kg/m2 04/14/2018 3:59pm Height 61 inches 5'1" Weight 190.00 lb BP Systolic 126 mmHg BP Diastolic 86 mmHg Body Temperature 97.8 F BMI (Body Mass Index) 35.9 kg/m2 04/07/2018 12:46pm Height 61 inches 5'1" Weight 192.00 lb Heart Rate 76 /min BP Systolic Sitting 130 mmHg BP Diastolic Sitting 90 mmHg Respiratory Rate 16 /min BMI (Body Mass Index) 36.3 kg/m2 03/31/2018 1:19pm Height 62 inches 5'2" Weight 192.00 lb BP Systolic 116 mmHg BP Diastolic 68 mmHg Body Temperature 97.9 F BMI (Body Mass Index) 35.1 kg/m2 03/20/2018 11:17am Heart Rate 84 /min BP Systolic 118 mmHg BP Diastolic 80 mmHg Respiratory Rate 16 /min Pain Level 5 03/20/2018 10:31am Height 61 inches 5'1" Heart Rate 104 /min BP Systolic Sitting 136 mmHg BP Diastolic Sitting 91 mmHg O2 % BldC Oximetry 96 % 02/28/2018 12:59pm Height 61 inches 5'1" Weight 190.00 lb BP Systolic 128 mmHg BP Diastolic 68 mmHg Respiratory Rate 16 /min Body Temperature 97.0 F Pain Level 4 BMI (Body Mass Index) 35.9 kg/m2 01/31/2018 10:47am Height 61 inches 5'1" Weight 190.00 lb BP Systolic 124 mmHg BP Diastolic 76 mmHg Body Temperature 97.8 F BMI (Body Mass Index) 35.9 kg/m2 01/17/2018 12:42pm Height 61.5 inches 5'1.50" Weight 193.00 lb Heart Rate 84 /min BP Systolic Sitting 114 mmHg BP Diastolic Sitting 74 mmHg O2 % BldC Oximetry 99 % BMI (Body Mass Index) 35.9 kg/m2 01/17/2018 11:38am Height 61.5 inches 5'1.50" Weight 193.00 lb Heart Rate 79 /min Respiratory Rate 16 /min Pain Level 8 BMI (Body Mass Index) 35.9 kg/m2 12/23/2017 2:05pm Height 61.5 inches 5'1.50" Weight 193.00 lb BP Systolic 111 mmHg BP Diastolic 79 mmHg Respiratory Rate 17 /min Pain Level 7 BMI (Body Mass Index) 35.9 kg/m2 12/20/2017 3:12pm Height 61.5 inches 5'1.50" Weight 193.50 lb Heart Rate 68 /min BP Systolic Sitting 118 mmHg BP Diastolic Sitting 92 mmHg Body Temperature 97.4 F Pain Level 7 BMI (Body Mass Index) 36.0 kg/m2 11/28/2017 4:10pm Height 61.5 inches 5'1.50" Weight 194.25 lb Heart Rate 93 /min BP Systolic Sitting 129 mmHg BP Diastolic Sitting 92 mmHg O2 % BldC Oximetry 97 % BMI (Body Mass Index) 36.1 kg/m2 11/12/2017 11:59am Height 61.5 inches 5'1.50" Weight 197.00 lb Heart Rate 85 /min BP Systolic Sitting 133 mmHg BP Diastolic Sitting 91 mmHg O2 % BldC Oximetry 100 % BMI (Body Mass Index) 36.6 kg/m2 Results Test Date Facility Test Result H/L Range Note Laboratory test finding 08/22/2018 [facility] Amylase 46 U/L N 29-[address] [place] [address] [phone] Lipase 14 U/L N 11.0-82.0 C Reactive Protein 5.51 mg/L N <8.01 CBC No Diff 08/22/2018 [facility] White Blood 4.9 10^3/uL N 3.5-10.[address] [place] [address] [phone] Red Blood Count 4.37 10^6/uL N 3.70-4.87 Hemoglobin 12.5 g/dL N 12.0-16.0 Hematocrit 38 % N 33-41 Mean Corpuscular Volume 86 fL N 80-97 Mean Corpuscular Hemoglobin 29 pg N 27-31 Mean Corpuscular HGB Conc 33 g/dL N 31-36 Red Cell Distribution Width 16 % High 10.5-15 Platelet Count 345 10^3/uL N 150-450 Mean Platelet Volume 8.6 fL N 7.4-10.4 Comp Metabolic Panel 08/22/2018 [facility] Sodium 137 mmol/L N 135-[address] [place] [address] [phone] Potassium 3.7 mmol/L N 3.5-5.0 Chloride 99 mmol/L Low 101-111 Co2 Carbon Dioxide 31 mmol/L N 22-32 Anion Gap 7 mmol/L N 2-11 Glucose 133 mg/dL High 70-100 Blood Urea Nitrogen 16 mg/dL N 6-24 Creatinine 0.91 mg/dL N 0.51-0.95 BUN/Creatinine Ratio 17.6 N 8-20 Calcium 9.1 mg/dL N 8.6-10.3 Total Protein 7.0 g/dL N 6.4-8.9 Albumin 4.2 g/dL N 3.2-5.2 Globulin 2.8 g/dL N 2-4 Albumin/Globulin Ratio 1.5 N 1-3 Total Bilirubin 0.30 mg/dL N 0.2-1.0 Alkaline Phosphatase 69 U/L N 34-104 Alt 16 U/L N 7-52 Ast 24 U/L N 13-39 Egfr Non- 60.4 >60 Egfr 73.1 >60 1 Liver Function 08/22/2018 [facility] Direct 0.10 mg/dL N 0.03- 0.[address] [place] [address] [phone] Indirect Bilirubin 0.2 mg/dL Low 0.3-1.0 CBC Auto Diff 06/20/2018 [facility] White Blood 5.1 10^3/uL N 3.5-10.[address] [place] [address] [phone] Red Blood Count 4.08 10^6/uL N 4.00-5.40 Hemoglobin 11.6 g/dL Low 12.0-16.0 Hematocrit 35 % N 35-47 Mean Corpuscular Volume 85 fL N 80-97 Mean Corpuscular Hemoglobin 28 pg N 27-31 Mean Corpuscular HGB Conc 33 g/dL N 31-36 Red Cell Distribution Width 16 % High 10.5-15 Platelet Count 312 10^3/uL N 150-450 Mean Platelet Volume 8.5 fL N 7.4-10.4 Abs Neutrophils 2.3 10^3/uL N 1.5-7.7 Abs Lymphocytes 1.9 10^3/uL N 1.0-4.8 Abs Monocytes 0.4 10^3/uL N 0-0.8 Abs Eosinophils 0.4 10^3/uL N 0-0.6 Abs Basophils 0.1 10^3/uL N 0-0.2 Abs Nucleated RBC 0 10^3/uL Granulocyte % 45.5 % Lymphocyte % 37.2 % Monocyte % 8.6 % Eosinophil % 7.7 % Basophil % 1.0 % Nucleated Red Blood Cells % 0.1 Laboratory test 06/20/2018 [facility] Erythrocyte Sed 21 mm/Hr N 0-[address] [place] [address] [phone] Comp Metabolic 06/20/2018 [facility] Sodium 136 mmol/L N 135- [address] [place] [address] [phone] Potassium 3.9 mmol/L N 3.5-5.0 Chloride 98 mmol/L Low 101-111 Co2 Carbon Dioxide 32 mmol/L N 22-32 Anion Gap 6 mmol/L N 2-11 Glucose 118 mg/dL High 70-100 Blood Urea Nitrogen 20 mg/dL N 6-24 Creatinine 1.01 mg/dL High 0.51-0.95 BUN/Creatinine Ratio 19.8 N 8-20 Calcium 9.5 mg/dL N 8.6-10.3 Total Protein 6.9 g/dL N 6.4-8.9 Albumin 4.3 g/dL N 3.2-5.2 Globulin 2.6 g/dL N 2-4 Albumin/Globulin Ratio 1.7 N 1-3 Total Bilirubin 0.30 mg/dL N 0.2-1.0 Alkaline Phosphatase 85 U/L N 34-104 Alt 15 U/L N 7-52 Ast 24 U/L N 13-39 Egfr Non- 53.6 >60 Egfr 64.8 >60 2 Lipid Profile 06/17/2018 [facility] Triglycerides 155 mg/dL 3, 4 (Trig/Chol/HDL) [address] [place] [address] [phone] Cholesterol 212 mg/dL 5 HDL Cholesterol 60.1 mg/dL 6 LDL Cholesterol 121 mg/dL 7 Laboratory 06/17/2018 [facility] TSH (Thyroid 4.43 N 0.34- 5.60 [address] Stim Horm) mcIU/[place] [address] [phone] Arthritis 04/07/2018 [facility] Erythrocyte Sed 48 mm/Hr High 0-[address] [place] [address] [phone] Uric Acid 5.9 mg/dL N 2.3-6.6 Rheumatoid Factor < 10 IU/mL N <15 Anti-Nuclear Antibody 0.4 U 9 Cyclic Citrullinated Peptide <15.6 U 10 Interpretation See Comment 11 Comp Metabolic Panel 04/07/2018 [facility] Sodium 139 mmol/L N 135-[address] [place] [address] [phone] Potassium 4.0 mmol/L N 3.5-5.0 Chloride 101 mmol/L N 101-111 Co2 Carbon Dioxide 32 mmol/L N 22-32 Anion Gap 6 mmol/L N 2-11 Glucose 67 mg/dL Low 70-100 Blood Urea Nitrogen 15 mg/dL N 6-24 Creatinine 0.94 mg/dL N 0.51-0.95 BUN/Creatinine Ratio 16.0 N 8-20 Calcium 8.9 mg/dL N 8.6-10.3 Total Protein 6.5 g/dL N 6.4-8.9 Albumin 3.8 g/dL N 3.2-5.2 Globulin 2.7 g/dL N 2-4 Albumin/Globulin Ratio 1.4 N 1-3 Total Bilirubin 0.30 mg/dL N 0.2-1.0 Alkaline Phosphatase 104 U/L N 34-104 Alt 14 U/L N 7-52 Ast 22 U/L N 13-39 Egfr Non- 58.4 >60 Egfr 70.6 >60 12 Laboratory test 12/30/2017 [facility] Lipase < 10 U/L Low 11.0 -82.[address] [place] [address] [phone] CRP High Sensitivity 16.63 mg/L High <2.00 Urinalysis Profile 12/30/2017 [facility] Urine Color Straw [address] [place] [address] [phone] Urine Appearance Clear Urine Specific [place] 1.006 Low 1.010-1.030 Urine pH 7.0 N 5-9 Urine Urobilinogen Negative Negative Urine Ketones Negative Negative Urine Protein Negative Negative Urine Leukocytes Negative Negative Urine Blood Negative Negative Urine Nitrite Negative Negative Urine Bilirubin Negative Negative Urine Glucose Negative Negative CBC Auto Diff 12/30/2017 [facility] White Blood 6.9 10^3/uL N 3.5-10.[address] [place] [address] [phone] Red Blood Count 3.95 10^6/uL Low 4.00-5.40 Hemoglobin 11.9 g/dL Low 12.0-16.0 Hematocrit 35 % N 35-47 Mean Corpuscular Volume 88 fL N 80-97 Mean Corpuscular Hemoglobin 30 pg N 27-31 Mean Corpuscular HGB Conc 34 g/dL N 31-36 Red Cell Distribution Width 14 % N 10.5-15 Platelet Count 347 10^3/uL N 150-450 Mean Platelet Volume 7.5 um3 N 7.4-10.4 Abs Neutrophils 4.8 10^3/uL N 1.5-7.7 Abs Lymphocytes 1.2 10^3/uL N 1.0-4.8 Abs Monocytes 0.6 10^3/uL N 0-0.8 Abs Eosinophils 0.3 10^3/uL N 0-0.6 Abs Basophils 0.1 10^3/uL N 0-0.2 Abs Nucleated RBC 0 10^3/uL Granulocyte % 69.8 % N 38-83 Lymphocyte % 17.0 % Low 25-47 Monocyte % 8.1 % High 0-7 Eosinophil % 3.9 % N 0-6 Basophil % 1.2 % N 0-2 Nucleated Red Blood Cells % 0 Comp Metabolic Panel 12/30/2017 [facility] Sodium 135 mmol/L N 135-[address] [place] [address] [phone] Potassium 3.4 mmol/L Low 3.5-5.0 Chloride 99 mmol/L Low 101-111 Co2 Carbon Dioxide 31 mmol/L N 22-32 Anion Gap 5 mmol/L N 2-11 Glucose 104 mg/dL High 70-100 Blood Urea Nitrogen 15 mg/dL N 6-24 Creatinine 0.83 mg/dL N 0.51-0.95 BUN/Creatinine Ratio 18.1 N 8-20 Calcium 8.4 mg/dL Low 8.6-10.3 Total Protein 7.2 g/dL N 6.4-8.9 Albumin 3.8 g/dL N 3.2-5.2 Globulin 3.4 g/dL N 2-4 Albumin/Globulin Ratio 1.1 N 1-3 Total Bilirubin 0.30 mg/dL N 0.2-1.0 Alkaline Phosphatase 109 U/L High 34-104 Alt 14 U/L N 7-52 Ast 20 U/L N 13-39 Egfr Non- 67.4 >60 Egfr 81.5 >60 13 Laboratory test 12/30/2017 [facility] Erythrocyte Sed 58 mm/Hr High 0-[address] [place] [address] [phone] Laboratory test 12/23/2017 [facility] Vitamin D Total 41.6 N 20-[address] 25(Oh) ng/[place] [address] [phone] Basic Metabolic 12/23/2017 [facility] Sodium 136 N 135-[address] mmol/[place] [address] [phone] Potassium 3.6 mmol/L N 3.5-5.0 Chloride 100 mmol/L Low 101-111 Co2 Carbon Dioxide 30 mmol/L N 22-32 Anion Gap 6 mmol/L N 2-11 Glucose 88 mg/dL N 70-100 Blood Urea Nitrogen 20 mg/dL N 6-24 Creatinine 1.01 mg/dL High 0.51-0.95 BUN/Creatinine Ratio 19.8 N 8-20 Calcium 9.3 mg/dL N 8.6-10.3 Egfr Non- 53.7 >60 Egfr 65.0 >60 14 CBC Auto Diff 12/02/2017 [facility] White Blood 6.5 10^3/uL N 3.5-10.[address] [place] [address] [phone] Red Blood Count 4.27 10^6/uL N 4.00-5.40 Hemoglobin 12.7 g/dL N 12.0-16.0 Hematocrit 38 % N 35-47 Mean Corpuscular Volume 89 fL N 80-97 Mean Corpuscular Hemoglobin 30 pg N 27-31 Mean Corpuscular HGB Conc 34 g/dL N 31-36 Red Cell Distribution Width 14 % N 10.5-15 Platelet Count 377 10^3/uL N 150-450 Mean Platelet Volume 8.2 um3 N 7.4-10.4 Abs Neutrophils 3.8 10^3/uL N 1.5-7.7 Abs Lymphocytes 1.9 10^3/uL N 1.0-4.8 Abs Monocytes 0.5 10^3/uL N 0-0.8 Abs Eosinophils 0.2 10^3/uL N 0-0.6 Abs Basophils 0.1 10^3/uL N 0-0.2 Abs Nucleated RBC 0 10^3/uL Granulocyte % 58.6 % N 38-83 Lymphocyte % 29.4 % N 25-47 Monocyte % 8.2 % High 0-7 Eosinophil % 2.9 % N 0-6 Basophil % 0.9 % N 0-2 Nucleated Red Blood Cells % 0 Protein 12/02/2017 [facility] Total 7.1 g/dL 6.3 - Electrophoresis [address] Protein(Pep) 7.9 [place] [address] [phone] Albumin 3.3 g/dL Abnormal 3.4-4.7 Alpha-1 Globulin 0.2 g/dL 0.1-0.3 Alpha-2 Globulin 1.1 g/dL Abnormal 0.6-1.0 Beta Globulin 1.3 g/dL Abnormal 0.7-1.2 Gamma Globulin 1.2 g/dL 0.6-1.6 Albumin/Globulin Ratio 0.88 Impression See Comment 15 Laboratory test 12/02/2017 [facility] Erythrocyte Sed 29 mm/Hr N 0-[address] [place] [address] [phone] C Reactive Protein 1.77 mg/L N <8.01 Comp Metabolic Panel 11/18/2017 [facility] Sodium 140 mmol/L N 135-[address] [place] [address] [phone] Potassium 3.7 mmol/L N 3.5-5.0 Chloride 100 mmol/L Low 101-111 Co2 Carbon Dioxide 33 mmol/L High 22-32 Anion Gap 7 mmol/L N 2-11 Glucose 97 mg/dL N 70-100 Blood Urea Nitrogen 10 mg/dL N 6-24 Creatinine 0.83 mg/dL N 0.51-0.95 BUN/Creatinine Ratio 12.0 N 8-20 Calcium 9.5 mg/dL N 8.6-10.3 Total Protein 6.7 g/dL N 6.4-8.9 Albumin 4.0 g/dL N 3.2-5.2 Globulin 2.7 g/dL N 2-4 Albumin/Globulin Ratio 1.5 N 1-3 Total Bilirubin 0.40 mg/dL N 0.2-1.0 Alkaline Phosphatase 57 U/L N 34-104 Alt 16 U/L N 7-52 Ast 23 U/L N 13-39 Egfr Non- 67.4 >60 Egfr 81.5 >60 16 Lipid Profile 11/18/2017 [facility] Triglycerides 107 mg/dL 17 (Trig/Chol/HDL) [address] [place] [address] [phone] Cholesterol 208 mg/dL 18 HDL Cholesterol 80.5 mg/dL 19 LDL Cholesterol 106 mg/dL 20 1 Because ethnic data is not always [...] 5 Kidney failure <15 (or dialysis) 3 FASTING 4 Desirable: <150 Borderline High: 150-199 High: 200-499 Very High: >500 5 Desirable: <200 Borderline High: 200-239 High: >239 6 Low: <40 Desirable: 40-60 High: >60 7 Desirable: <100 Near Optimal: 100-129 Borderline High: 130-159 High: 160-189 Very High: >189 8 FASTING 9 REFERENCE VALUE <=1.0 (Negative) 10 REFERENCE VALUE <20.0 (Negative) 11 Tests for antibodies to dsDNA and DIANELYS antigens are not performed automatically unless the EASTON result is > or= 3.0 U. Studies performed at [facility] indicate that positive EASTON results <3.0 U are rarely accompanied by positive second order tests. Test Performed by: [facility] [id number] [place] [address] 12 Because ethnic data is not always readily [...] 15-29 5 Kidney failure <15 (or dialysis) 13 Because ethnic data is not always readily [...] 15-29 5 Kidney failure <15 (or dialysis) 14 Because ethnic data is not always readily [...] 15-29 5 Kidney failure <15 (or dialysis) 15 RESULT: No apparent monoclonal protein on serum electrophoresis. Test Performed by: [address] [address] 16 Because ethnic data is not always readily [...] 15-29 5 Kidney failure <15 (or dialysis) 17 Desirable: <150 Borderline High: 150-199 High: 200-499 Very High: >500 18 Desirable: <200 Borderline High: 200-239 High: >239 19 Low: <40 Desirable: 40-60 High: >60 20 Desirable: <100 Near Optimal: 100-129 Borderline High: 130-159 High: 160-189 Very High: >189 Procedures Date Code Description Status 12/05/2017 [id number] Mammogram Completed 02/22/2014 [id number] Colonoscopy Completed Encounters Type Date Location Provider Dx Diagnosis Office Visit 08/18/2018 Anabelle Garland79.604 Pain in right leg 11:00a Long Rojo F33.9 Major depressive disorder, recurrent, unspecified Office Visit 07/04/2018 Orthopedic Nestor Juarez822 Posterior tibial 11:30a Services Of jailene Vang C.M.AAbimael leg Office Visit 06/16/2018 Moon Ahn79.604 Pain in right leg 2:20p Darrel Hayes F33.9 Major depressive disorder, recurrent, unspecified Office Visit 05/26/2018 Nestor Chin822 Posterior tibial 11:00a Services Of jailene Vang C.M.AAbimael leg Office Visit 05/19/2018 Nestor Perez822 Posterior tibial 1:15p Services Of M.D. tendinitis, left C.M.A. leg M25.572 Pain in left ankle and joints of left foot S93.402D Sprain of unspecified ligament of left ankle, subs encntr Office Visit 04/14/2018 3:30p Orthopedic Nakiamarquez Bennett, M48.061 Spinal stenosis, Services Of Darrel lumbar region C.M.A. without neurogenic rad S32.301D Unsp fracture of right ilium, subs for fx w routn heal M76.822 Posterior tibial tendinitis, left leg Office Visit 04/07/2018 12:00p [place] [facility] Jason StevensAbimael M48.061 Spinal stenosis, Services Of Moon Espinosa M.D. lumbar region without neurogenic rad G83.4 Cauda equina syndrome G25.3 Myoclonus Office Visit 03/31/2018 1:15p Orthopedic Nakia S93.402D Sprain of Services Of Darrel Bennett unspecified C.M.A. ligament of left ankle, subs encntr S32.301D Unsp fracture of right ilium, subs for fx w routn heal M25.572 Pain in left ankle and joints of left foot M25.472 Effusion, left ankle Office Visit 03/20/2018 Orthopedic Sveta Morales S32.301D Unsp fracture of 10:15a Services Of right ilium, subs C.M.A. for fx w routn heal Office Visit 03/20/2018 Moon Velascoth M79.604 Pain in right leg 10:20a Long Garcia M.D. Office Visit 02/28/2018 Orthopedic Nakia Bennett, S93.402A Sprain of 1:00p Services Of Darrel unspecified C.M.A. ligament of left ankle, init encntr S32.301A Unsp fracture of right ilium, init for clos fx M54.5 Low back pain Office Visit 01/31/2018 11:00a Orthopedic Nakia S93.402A Sprain of Services Of Darrel Bennett unspecified C.M.A. ligament of left ankle, init encntr W19.xxxA Unspecified fall, initial encounter S32.301A Unsp fracture of right ilium, init for clos fx Office Visit 01/17/2018 11:00a Orthopedic Nakia Donald, S32.301A Uns fracture Services Taran Rojo of right [facility], C.M.A init for clos fx M25.551 Pain in right hip M48.061 Spinal stenosis, lumbar region without neurogenic rad M54.5 Low back pain W19.xxxA Unspecified fall, initial encounter S93.402A Sprain of unspecified ligament of left ankle, init encntr Office Visit 01/17/2018 12:00p [facility] Internal Anuja S32.301D Unsp fracture Medicine Darrel Garcia of right ilium, subs for fx w routn heal K21.9 Gastro-esophageal reflux disease without esophagitis G89.4 Chronic pain syndrome R60.0 Localized edema E78.5 Hyperlipidemia, unspecified Office Visit 01/02/2018 2:43p [facility] Aleah Brown, S32.301A Unsp [facility], init for clos fx M48.061 Spinal stenosis, lumbar region without neurogenic rad E03.9 Hypothyroidism, unspecified K21.9 Gastro-esophageal reflux disease without esophagitis Office Visit 01/01/2018 2:43p [facility] S32.301A Unsp fracture [facility]occarmelita [facility] init for clos fx C50.919 Malignant neoplasm of unsp site of unspecified female breast E03.9 Hypothyroidism, unspecified K59.00 Constipation, unspecified Office Visit 12/31/2017 2:43p [facility] S32.301A Unsp fracture Assoccarmelita [facility], init for clos fx C50.919 Malignant neoplasm of unsp site of unspecified female breast E03.9 Hypothyroidism, unspecified Office Visit 12/30/2017 [facility] Jerome M54.16 Radiculopathy, 2:42p Assoc,pc Ted, N.P. lumbar region Hospitalists S32.301A Unsp fracture of right ilium, init for clos fx E03.9 Hypothyroidism, unspecified K21.9 Gastro-esophageal reflux disease without esophagitis F33.9 Major depressive disorder, recurrent, unspecified E78.5 Hyperlipidemia, unspecified Z85.3 Personal history of malignant neoplasm of breast Z86.69 Personal history of dis of the nervous sys and sense organs Office 12/30/2017 Neurosurgery Vassilios M51.17 Intvrt disc Visit 7:00a Services Of Moon Villeda MD disorders w radiculopathy, lumbosacral region M48.061 Spinal stenosis, lumbar region without neurogenic rad S32.301D Unsp fracture of right ilium, subs for fx w routn heal Office Visit 12/30/2017 10:23a Orthopedic Man S32.301A Unsp fracture Services Of Darrel Saleem of right ilium, C.M.A. init for clos fx Office Visit 12/23/2017 1:00p Orthopedic Nakia Bennett, M25.551 Pain in right Services Of Darrel hip C.M.A. M16.11 Unilateral primary osteoarthritis, right hip M25.562 Pain in left knee M25.462 Effusion, left knee M17.12 Unilateral primary osteoarthritis, left knee W19.xxxA Unspecified fall, initial encounter M54.5 Low back pain Office 12/20/2017 Neurosurgery Vassilios M51.36 Other Visit 3:00p Services Of Moon Villeda MD intervertebral disc degeneration, lumbar region M51.17 Intvrt disc disorders w radiculopathy, lumbosacral region M47.26 Other spondylosis with radiculopathy, lumbar region Office 12/10/2017 Neurosurgery Vassilios M51.36 Other Visit 8:30a Services Of Moon Villeda MD intervertebral disc degeneration, lumbar region M51.17 Intvrt disc disorders w radiculopathy, lumbosacral region M47.26 Other spondylosis with radiculopathy, lumbar region Z98.1 Arthrodesis status Office Visit 11/28/2017 4:00p [facility] Anuja M54.30 Sciatica, Long Garcia M.D. unspecified side M85.80 Oth disrd of bone density and structure, unspecified site Z85.3 Personal history of malignant neoplasm of breast M25.559 Pain in unspecified hip M54.9 Dorsalgia, unspecified Office Visit 11/12/2017 10:40a [facility] Anuja M54.9 Dorsalgia, Medicine Darrel Garcia unspecified K21.9 Gastro-esophageal reflux disease without esophagitis M81.0 Age-related osteoporosis w/o current pathological fracture R03.0 Elevated blood-pressure reading, w/o diagnosis of htn Z85.3 Personal history of malignant neoplasm of breast Z85.828 Personal history of other malignant neoplasm of skin F33.9 Major depressive disorder, recurrent, unspecified Z68.36 Body mass index (BMI) 36.0-36.9, adult Plan of Treatment Future Appointment(s):09/18/2018 1:00 pm - Krystal Hardin NP at [facility] Hakhmqqoqmkzvpwe43/17/2019 10:20 am - Anuja Garcia M.D. at [facility] Internal Dyavyfcb30/06/2019 10:20 am - Anuja Garcia M.D. at [facility] [id number] - Josias Rutledge, MDM54.17 Radiculopathy, lumbosacral regionReferral: Leah Villeda MD, Surgery,NeurologicalFollow up:Follow Up: As ycxridH16.822 Posterior tibial tendinitis, left leg
--- OUTSIDE RECORDS SUMMARY | 2018-09-08 11:40 | XMS REPORT | Continuity of Care Document ---
:1945 External Reference #:[id number] Author Name DiogorickyAfshinHarriett Care Team Providers Name Role Phone Anuja Garcia MD Primary Care Physician Unavailable Payers Date Identification Numbers Payment Provider Subscriber Policy Number: [id number] Medicare Radha Ferro PayID: [id number] [address] [place] [address] Policy Number: [id number] [employer] Radha Ferro PayID: [id number] [employer] [address] [address] [place] [address] Advance Directives Description No Information Available Problems [...] iliac wing Nakia Bennett M.D. Active Onset: 05/19/2018 Tibialis tendinitis Nakia Bennett M.D. 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 [employer] ETOH Use Drinks 3 Alcoholic or less Beverages Per Week Tobacco Use Start: Unknown Patient has never smoked Recreational Drug Use Denies Drug Use Smoking Status Reviewed: 08/18/18 Patient has never smoked Exercise Type/Frequency Exercises regularly Allergies, Adverse Reactions, Alerts Date Description Reaction Status Severity Comments 11/12/2017 Sulfa Antibiotics Active Medications Medication Date Status Form Strength Qnty SIG Indications Ordering Provider Lansoprazole 07/02 Active Capsules 30mg 120ca 2 by mouth ps twice Darrel Garcia daily Miralax 01/17 Active Powder once daily Darrel Garcia Calcium Plus D 11/12 Active 3 daily Darrel Garcia Escitalopram 11/12 Active Tablets 20mg 90tab 1 by mouth Anuja Oxalate s every day Darrel Garcia Synthroid Active Tablets 125mcg 90tab 1 by mouth Anuja s every day Darrel Garcia Atorvastatin Active Tablets 40mg 30tab 1 by mouth Anuja Calcium / s every day Darrel Garcia Amitriptyline Active Tablets 25mg 90tab 1 at Anuja HCL s bedtime Darrel Garcia Cymbalta Active Caps DR 30mg 30cap 1 by mouth Anuja Part s every day Darrel Garcia Melatonin ER Active Tablets 10mg 1 tab by Unknown ER mouth at bedtime Aspir-81 Active Tablets 81mg [address] every day Anastrozole Active Tablets 1mg 1 by mouth every day Oxycodone HCL Active Tablets 10mg 120ta Take One bs Tablet By Darrel Garcia Mouth Every 6 Hours as Needed For Pain -- Maximum Daily Dose Of 4 Per Day Baclofen Active Tablets 5mg 5mg every 6-8 hours as needed for muscle spasm. Rexulti Active Tablets 3mg daily CBD Oil Active 2 drops Oxycodone HCL ER Active Tab ER 20mg 60tab take 1 Anuja /0000 12H s tablet by Darrel Garcia Abuse-Det mouth every 12 hours -- maximum daily dose of 2 per day Prolia Active Solution 60mg/ml inject Flores 60mg under MD Franchesca the skin every 6 months Omeprazole 07/01 Hx Capsules 20mg 60cap [address] stevens every day Darrel Garcia - [...] 05/30 Hx Tablets 250mg 1Pack as per /2017 directions Darrel Ferro - 01/08 Prevacid Hx Capsules 30mg 120ca 2 by mouth Anuja /0000 DR temple bid Darrel Garcia - 01/17 Triamterene/Hydr Hx Tablets 37.5-25mg 90tab 1 by mouth Anuja ochlorothiazide s every day Darrel Garcia - 01/16 Anastrozole Hx Tablets 1mg one daily - 01/08 Krill Oil Hx Capsules 300mg Unknown - 01/17 Baclofen Hx Tablets 5mg 100ta 1 by mouth Anuja /0000 bs three Darrel Garcia - times a /2017 Gabapentin Hx Capsules 100mg 90cap 1 by mouth Anuja /0000 s three Darrel Garcia - times a Omeprazole Hx Capsules 40mg 1 PO bid Unknown /0000 DR - 01/17 Arimidex Hx Tablets 1mg 1 PO qd Unknown /0000 - 06/16 Cyclobenzaprine Hx Tablets 10mg take 1 Unknown HCL /0000 tablet by - mouth 01/16 every hours if needed for muscle spasm maximu Oxycodone-Acetam Hx Tablets 5-325mg Unknown inophen /0000 - 01/16 Lansoprazole Hx Capsules 30mg take [address] capsules - by mouth 07/01 twice day Prednisone Hx Tablets 10mg 10mg every Unknown day - 01/17 Immunizations CPT Code Status Date Vaccine Lot # [id number] Given 11/15/2017 Zoster (Shingles) Vaccine (HZV), Recombinant, Subunit, Adjuvanted Vital Signs Date Vital Result Comment 08/18/2018 11:13am Height 61 inches 5'1" Weight [...] Date Facility Test Result H/L Range Note CBC Auto Diff 06/20/2018 [facility] White Blood 5.1 10^3/uL N 3.5-10.[address] [place] [address] [phone] Red Blood Count 4.08 10^6/uL N 4.00-5.40 [...] Blood Cells % 0.1 Laboratory test 06/20/2018 [facility] Erythrocyte Sed 21 mm/Hr N 0-[address] [place] [address] [phone] Comp Metabolic 06/20/2018 [facility] Sodium 136 mmol/L N 135- [address] [place] [address] [phone] Potassium 3.9 mmol/L N 3.5-5.0 Chloride 98 [...] Egfr Non- 53.6 >60 Egfr 64.8 >60 1 Lipid Profile 06/17/2018 [facility] Triglycerides 155 mg/dL 2, 3 (Trig/Chol/HDL) [address] [place] [address] [phone] Cholesterol 212 mg/dL 4 HDL Cholesterol 60.1 mg/dL 5 LDL Cholesterol 121 mg/dL 6 Laboratory test 06/17/2018 [facility] TSH (Thyroid 4.43 mcIU/mL N 0.34-5.[address] Stim [place]) [place] [address] [phone] Comp Metabolic 04/07/2018 [facility] Sodium 139 mmol/L N 135- [address] [place] [address] [phone] Potassium 4.0 mmol/L N 3.5-5.0 Chloride 101 [...] Egfr Non- 58.4 >60 Egfr 70.6 >60 8 Arthritis Panel 04/07/2018 [facility] Erythrocyte Sed 48 mm/Hr High 0-[address] [place] [address] [phone] Uric Acid 5.9 mg/dL N 2.3-6.6 Rheumatoid Factor < 10 IU/mL N <15 Anti-Nuclear Antibody 0.4 U 9 Cyclic Citrullinated Peptide <15.6 U 10 Interpretation See Comment 11 Urinalysis Profile 12/30/2017 [facility] Urine Color Straw [address] [place] [address] [phone] Urine Appearance Clear Urine Specific [place] 1.006 Low 1.010-1.030 Urine pH 7.0 N 5-9 Urine Urobilinogen Negative Negative Urine Ketones Negative Negative Urine Protein Negative Negative Urine Leukocytes Negative Negative Urine Blood Negative Negative Urine Nitrite Negative Negative Urine Bilirubin Negative Negative Urine Glucose Negative Negative Comp Metabolic Panel 12/30/2017 [facility] Sodium 135 mmol/L N 135-[address] [place] [address] [phone] Potassium 3.4 mmol/L Low 3.5-5.0 Chloride 99 [...] Egfr Non- 67.4 >60 Egfr 81.5 >60 12 Laboratory test 12/30/2017 [facility] Lipase < 10 U/L Low 11.0 -82.[address] [place] [address] [phone] CRP High Sensitivity 16.63 mg/L High <2.00 CBC Auto Diff 12/30/2017 [facility] White Blood 6.9 10^3/uL N 3.5-10.[address] [place] [address] [phone] Red Blood Count 3.95 10^6/uL Low 4.00-5.40 [...] Red Blood Cells % 0 Laboratory test 12/30/2017 [facility] Erythrocyte Sed 58 mm/Hr High 0-[address] [place] [address] [phone] Laboratory test 12/23/2017 [facility] Vitamin D Total 41.6 N 20-[address] 25(Oh) ng/[place] [address] [phone] Basic Metabolic 12/23/2017 [facility] Sodium 136 N 135-[address] mmol/[place] [address] [phone] Potassium 3.6 mmol/L N 3.5-5.0 Chloride 100 mmol/L Low 101-111 Co2 Carbon Dioxide 30 mmol/L N 22-32 Anion Gap 6 mmol/L N 2-11 Glucose 88 mg/dL N 70-100 Blood Urea Nitrogen 20 mg/dL N 6-24 Creatinine 1.01 mg/dL High 0.51-0.95 BUN/Creatinine Ratio 19.8 N 8-20 Calcium 9.3 mg/dL N 8.6-10.3 Egfr Non- 53.7 >60 Egfr 65.0 >60 13 CBC Auto Diff 12/02/2017 [facility] White Blood 6.5 10^3/uL N 3.5-10.[address] [place] [address] [phone] Red Blood Count 4.27 10^6/uL N 4.00-5.40 [...] Red Blood Cells % 0 Laboratory test 12/02/2017 [facility] Erythrocyte Sed 29 mm/Hr N 0-[address] [place] [address] [phone] C Reactive Protein 1.77 mg/L N <8.01 Protein 12/02/2017 [facility] Total 7.1 g/dL 6.3 - Electrophoresis 101 Protein(Pep) 7.9 [place], [place] [id number] [phone] Albumin 3.3 g/dL Abnormal 3.4-4.7 Alpha-1 Globulin 0.2 g/dL 0.1-0.3 Alpha-2 Globulin 1.1 g/dL Abnormal 0.6-1.0 Beta Globulin 1.3 g/dL Abnormal 0.7-1.2 Gamma Globulin 1.2 g/dL 0.6-1.6 Albumin/Globulin Ratio 0.88 Impression See Comment 14 Comp Metabolic Panel 11/18/2017 [facility] Sodium 140 mmol/L N 135-[address] [place] [address] [phone] Potassium 3.7 mmol/L N 3.5-5.0 Chloride 100 [...] Egfr Non- 67.4 >60 Egfr 81.5 >60 15 Lipid Profile 11/18/2017 [facility] Triglycerides 107 mg/dL 16 (Trig/Chol/HDL) [address] [place] [address] [phone] Cholesterol 208 mg/dL 17 HDL Cholesterol 80.5 mg/dL 18 LDL Cholesterol 106 mg/dL 19 1 Because ethnic data is not always [...] 5 Kidney failure <15 (or dialysis) 2 FASTING 3 Desirable: <150 Borderline High: 150-199 High: 200-499 Very High: >500 4 Desirable: <200 Borderline High: 200-239 High: >239 5 Low: <40 Desirable: 40-60 High: >60 6 Desirable: <100 Near Optimal: 100-129 Borderline High: 130-159 High: 160-189 Very High: >189 7 FASTING 8 Because ethnic data is not always [...] 15-29 5 Kidney failure <15 (or dialysis) 9 REFERENCE VALUE <=1.0 (Negative) 10 REFERENCE VALUE <20.0 (Negative) 11 Tests for antibodies to dsDNA and DIANELYS antigens are not performed automatically unless the EASTON result is > or= 3.0 U. Studies performed at [facility] indicate that positive EASTON results <3.0 U are rarely accompanied by positive second order tests. Test Performed by: [facility] [address] , [place] [address] 12 Because ethnic data is not always [...] 5 Kidney failure <15 (or dialysis) 14 RESULT: No apparent monoclonal protein on serum electrophoresis. Test Performed by: [address] [id number] 15 Because ethnic data is not always readily [...] 15-29 5 Kidney failure <15 (or dialysis) 16 Desirable: <150 Borderline High: 150-199 High: 200-499 Very High: >500 17 Desirable: <200 Borderline High: 200-239 High: >239 18 Low: <40 Desirable: 40-60 High: >60 19 Desirable: <100 Near Optimal: 100-129 Borderline High: 130-159 High: 160-189 Very High: >189 Procedures Date Code Description Status 12/05/2017 [id number] Mammogram Completed 02/22/2014 [id number] Colonoscopy Completed Encounters Type Date Location Provider Dx Diagnosis Office Visit 07/04/2018 Orthopedic Josias Rutledge MD M76.822 Posterior tibial 11:30a Services Of Celina palacio, left leg Office Visit 06/16/2018 [facility] Anuja Garcia M79.604 Pain in right leg 2:20p Long Cottrell F33.9 Major depressive disorder, recurrent, unspecified Office Visit 05/26/2018 Anabelle Chin76.822 Posterior tibial 11:00a Services Of MD palacio, left C.M.A. leg Office Visit 05/19/2018 Orthopedic Nakia Bennett, M76.822 Posterior tibial 1:15p Services Of Darrel tendinitis, left C.M.A. leg M25.572 Pain in left ankle and joints of left foot S93.402D Sprain of unspecified ligament of left ankle, subs encntr Office Visit 04/14/2018 3:30p Orthopedic Nakia Bennett M48.061 Spinal stenosis, Services Of Darrel lumbar region C.M.A. without neurogenic rad S32.301D Unsp fracture of right ilium, subs for fx w routn heal M76.822 Posterior tibial tendinitis, left leg Office Visit 04/07/2018 12:00p Olivia Del Angel M48.061 Spinal stenosis, Services Of Moon Espinosa [...] right ilium, subs C.M.A. for fx w samanthan heal Office Visit 03/20/2018 Moon Licea M79.604 Pain in right leg 10:20a Long [...] init for clos fx Office Visit 01/17/2018 12:00p [facility] Internal Anuja S32.301D Unsp fracture Medicine Darrel Garcia of right ilium, subs for fx w routn heal K21.9 Gastro-esophageal reflux disease without esophagitis G89.4 Chronic pain syndrome R60.0 Localized edema E78.5 Hyperlipidemia, unspecified Office Visit 01/17/2018 11:00a Orthopedic Nakiaserafin Bennett, S32.301A Uns fracture Services Of Darrel of right ilium, C.M.A. init for clos fx M25.551 Pain in right hip M48.061 Spinal stenosis, lumbar region without neurogenic rad M54.5 Low back pain W19.xxxA Unspecified fall, initial encounter S93.402A Sprain of unspecified ligament of left ankle, init encntr Office Visit 01/02/2018 2:43p [facility] Aleah Brown, S32.301A Unsp fracture Assoc,pc N.P. of right Hospitalists ilium, init for clos fx M48.061 Spinal stenosis, lumbar region without neurogenic ard E03.9 Hypothyroidism, unspecified K21.9 Gastro-esophageal reflux disease without esophagitis Office Visit 01/01/2018 2:43p [facility] S32.301A Unsp fracture Assoccarmelita M.D. of right Hospitalists ilium, init for clos fx C50.919 Malignant neoplasm of unsp site of unspecified female breast E03.9 Hypothyroidism, unspecified K59.00 Constipation, unspecified Office Visit 12/31/2017 2:43p [facility] S32.301A Unsp fracture Assoccarmelita M.D. of right Hospitalists ilium, init for clos fx C50.919 Malignant neoplasm of unsp site of unspecified female breast E03.9 Hypothyroidism, unspecified Office Visit 12/30/2017 [facility] Jerome M54.16 Radiculopathy, 2:42p Assoc,pc Ted, [...] Pain in right Services Of Darrel hip C.M.AAbimael M16.11 Unilateral primary osteoarthritis, right hip M25.562 [...] Z98.1 Arthrodesis status Office Visit 11/28/2017 4:00p [facility] Internal Anuja M54.30 Sciatica, Long Garcia M.D. unspecified side M85.80 Oth disrd of bone density and structure, unspecified site Z85.3 Personal history of malignant neoplasm of breast M25.559 Pain in unspecified hip M54.9 Dorsalgia, unspecified Office Visit 11/12/2017 10:40a [facility] Internal Anuja M54.9 Dorsalgia, Medicine Darrel Garcia unspecified K21.9 Gastro-esophageal reflux disease without esophagitis M81.0 Age-related osteoporosis w/o current pathological fracture R03.0 Elevated blood-pressure reading, w/o diagnosis of htn Z85.3 Personal history of malignant neoplasm of breast Z85.828 Personal history of other malignant neoplasm of skin F33.9 Major depressive disorder, recurrent, unspecified Z68.36 Body mass index (BMI) 36.0-36.9, adult Plan of Treatment Future Appointment(s):10/27/2018 10:20 am - Anuja Garcia M.D. at [facility] Internal Mnmdnztb66/11/2019 10:45 am - Krystal Hardin NP at [facility] Ycgbjohursvixtpx53/22/2019 10:45 am - Josias Rutledge MD at [facility]09/15/2018 10:20 am - Anuja Garcia M.D. at [facility] Internal Wflgguat69 - Anuja Garcia M.D.M79.604 Pain in right legComments:Continue the long acting oxycodone in the AM, try stopping it at nightContinue with short acting as needed It's [place] [facility]Follow up:2-3 hcikfkZ50.9 Major depressive disorder, recurrent, unspecifiedComments:Reduce the amitriptyline to one 25 mg tablet at bedtime You are also on Cymbalta and escitalopramIf you don't notice anything from drop in amitriptyline, next step would be to continue the taper and possibly stop the CymbaltaSend me email in 2-3 weeksLook into counseling
[2018-09-08 13:05] VITALS: BP 136/91
--- NOTE | 2018-09-08 13:21 | UC ---
Complaint Female HPI - HPI Summary HPI Summary: 73 y/o female presents to the urgent care c/o urinary frequency and burning w/ mild bladder spasms for one week. Pt has been drinking fluids and symptoms worsen yesterday. Pain on urination is 4/10. Mild lower back pain, but Pt has Hx of chronic back pain. Pt denies fever, flank pain, abdominal pain, pelvic pain, N/V/D. - History Of Current Complaint Chief Complaint: UCGU Stated Complaint: URINARY Time Seen by Provider: 09/08/18 13:14 Hx Obtained From: Patient ?: No - Menopausal Onset/Duration: Gradual Onset, Lasting Weeks - 1 week, Still Present, Worse Since - today Timing: Lasting Seconds Severity Initially: Mild Severity Currently: Mild Pain Intensity: 3 Pain Scale Used: 0-10 Numeric Character: Burning Aggravating Factor(s): Urination Alleviating Factor(s): Nothing Associated Signs And Symptoms: Positive: Back Pain - mild lower back pain, but Hx of chronic back pain. Negative: Fever, Vaginal Discharge - Risk Factors Ectopic Risk Factor: Negative Ovarian Torsion Risk Factor: Negative - Allergies/Home Medications Allergies/Adverse Reactions: Allergies Allergy/AdvReac Type Severity Reaction Status Date / Time Sulfa (Sulfonamide Allergy Hives Verified 09/08/18 13:05 Antibiotics) PMH/Surg Hx/FS Hx/Imm Hx Previously Healthy: Yes Endocrine History: Dyslipidemia Cardiovascular History: Hypertension - diet control GI/ History: Gastroesophageal Reflux Neurological History: Migraine Psychological History: Anxiety, Depression Cancer History: Breast Cancer - s/p lumpectomy - Surgical History Surgical History: Yes Surgery Procedure, Year, and Place: [facility] SURGERY 2016. RIGHT WRIST. HERNIA REPAIR. TONSILECTOMY. Rt BREAST LUMPECTOMY - Family History Known Family History: Positive: Hypertension Negative: Blood Disorder - Social History Occupation: Retired Lives: With Family Alcohol Use: Rare Substance Use Type: Prescribed Substance Use Comment - Amount & Last Used: pain killers Smoking Status (MU): Never Smoked Tobacco - Immunization History Most Recent Influenza Vaccination: 2017 Most Recent Pneumonia Vaccination: in past Review of Systems All Other Systems Reviewed And Are Negative: Yes Constitutional: Positive: Negative Skin: Positive: Negative Eyes: Positive: Negative ENT: Positive: Negative Respiratory: Positive: Negative Cardiovascular: Positive: Negative Gastrointestinal: Positive: Negative Genitourinary: Positive: Dysuria, Frequency, Other - bladder pressure Motor: Positive: Negative Neurovascular: Positive: Negative Musculoskeletal: Positive: Negative Neurological: Positive: Negative Psychological: Positive: Negative Is Patient Immunocompromised?: No Physical Exam - Summary Physical Exam Summary: VITAL SIGNS: Reviewed. GENERAL: Patient is a well developed and nourished female who is sitting comfortable in the examining table. Patient is not in any acute respiratory distress. HEAD AND FACE: No signs of trauma. No ecchymosis, hematomas or skull depressions. No sinus tenderness. EYES: PERRLA, EOMI x 2, No injected conjunctiva, clear watery eyes, no nystagmus. No photophobia. EARS: Hearing grossly intact. Ear canals and tympanic membranes are within normal limits. MOUTH: pharynx with no erythema, no exudates,no palatal petechiae. no B/L tonsillar enlargement Uvula in midline. NECK: Supple, trachea is midline, no lymphadenopathy, no JVD, no carotid bruit, no c-spine tenderness, neck with full ROM. CHEST: Symmetric, no tenderness at palpation LUNGS: Clear to auscultation bilaterally. No wheezing or crackles. CVS: Regular rate and rhythm, S1 and S2 present, no murmurs or gallops appreciated. ABDOMEN: Soft, non-tender. No signs of distention. No rebound no guarding, and no masses palpated. Bowel sounds are normal. BACK:no scoliosis or lesions, non tender to palpation, No B/L CVA tenderness EXTREMITIES: FROM in all major joints, no edema, no cyanosis or clubbing. NEURO: Alert and oriented x 3. No acute neurological deficits. Speech is normal and follows commands. SKIN: Dry and warm Triage Information Reviewed: Yes Vital Signs: Initial Vital Signs Temp 96.3 F 09/08/18 13:01 Pulse 94 09/08/18 13:01 Resp 18 09/08/18 13:01 BP 136/91 09/08/18 13:01 Pulse Ox 96 09/08/18 13:01 Complaint Female Dx - Course Course Of Treatment: 73 y/o female presents to the urgent care c/o urinary frequency and burning w/ mild bladder spasms for one week. Pt has been drinking fluids and symptoms worsen yesterday. Pain on urination is 4/10. Mild lower back pain, but Pt has Hx of chronic back pain. Pt denies fever, flank pain, abdominal pain, pelvic pain, N/V/D. Hx obtained. PE: WNL. UA results: Leukoesterase 1+. Pt denies Vaginal discharge. Pt Rx Keflex PO x 7 days. Pyridium 100mg PO TID x 2 days. Advised to increase fluid intake. Urine sent for culture if any abnormality Pt will be notified for further treatment. Pt advised If symptoms do not improve to return to the urgent care or f/u with PCP. Pt's BP is elevated today advised to decrease salt in diet, monitor BP and f/u with PCP for further management. Pt understood and agreed w/ plan of care. Left the clinic ambulating. - Differential Dx/Diagnosis Differential Diagnosis/HQI/PQRI: Cervicitis, Pelvic Inflammatory Disease, Renal Colic, Ureteral Stone, Urinary Tract Infection Provider Diagnosis: UTI (urinary tract infection), Uncontrolled hypertension Discharge - Sign-Out/Discharge Documenting (check all that apply): Patient Departure - D/c home All imaging exams completed and their final reports reviewed: No Studies - Discharge Plan Condition: Stable Disposition: HOME Prescriptions: Cephalexin CAP* [Keflex CAP*] 500 mg PO BID PC #14 cap Phenazopyridine TAB* [Pyridium 100 mg TAB*] 100 mg PO TID #6 tab Patient Education Materials: Urinary Tract Infection in Women (ED) Referrals: Anuja Garcia MD [Primary Care Provider] - 3 Days Additional Instructions: 1- Please take Keflex PO x 7 days. Pyridium 100 mg PO TID x 2 days to alleviate urinary symptoms. Increase increase fluid intake. drink cranberry juice. 2-Urine sent for culture if any abnormality, you will be notified for further treatment. 3-If symptoms do not improve please return to the urgent care or f/u with PCP in 3 days. 4-Your BP is elevated today. please decrease salt in your diet, monitor BP and if it continues to be elevated please f/u with your PCP for further management. - Billing Disposition and Condition Condition: STABLE Disposition: Home
== END 2018-09-08 13:55 | disposition home or self-care (01) ==
LOC: UCEAST 11:35
DX: N39.0 Urinary tract infection, site not specified (principal); M54.5 Low back pain; E78.5 Hyperlipidemia, unspecified; I10 Essential (primary) hypertension; K21.9 Gastro-esophageal reflux disease without esophagitis; G43.909 Migraine, unspecified, not intractable, without status migrainosus; F41.9 Anxiety disorder, unspecified; F32.9 Major depressive disorder, single episode, unspecified; Z88.2 Allergy status to sulfonamides
CPT/HCPCS: 81003; 87086

== ENCOUNTER 2022-01-12 12:22 | Inpatient (IN) ==
[2022-01-12] MEDS ORDERED: oxyCODONE/Acetamin 5/325 mg TAB PO ONE (13:30)
[2022-01-12 14:52] LABS: ABS Lymphocytes 0.9 10^3/ul (1.0-4.8); ABS Monocytes 0.4 10^3/ul (0-0.8); ABS Neutrophils 7.3 10^3/ul (1.5-7.7); Hematocrit 35 % (35-47); Hemoglobin 11.9 g/dL (12.0-16.0); Lymphocyte % 10.9 %; Mean Corpuscular HGB Conc 34 g/dL (31-36); Mean Corpuscular Hemoglobin 32 pg (27-31); Mean Corpuscular Volume 94 fL (80-97); Mean Platelet Volume 6.8 fL (7.4-10.4); Platelet Count 307 10^3/uL (150-450); Red Blood Count 3.77 10^6 /uL (3.70-4.87); Red Cell Distribution Width 15 % (10-15); White Blood Count 8.7 10^3/uL (3.5-10.8)
[2022-01-12 15:28] LABS: ALT 23 U/L (7-52); AST 22 U/L (13-39); Albumin 4.2 g/dL (3.2-5.2); Albumin/Globulin Ratio 1.6 (1-3); Alkaline Phosphatase 33 U/L (35-149); Anion Gap 7 mmol/L (2-11); Blood Urea Nitrogen 21 mg/dL (6-24); C Reactive Protein 2.88 mg/L (<8.01); CO2 Carbon Dioxide 28 mmol/L (22-32); Chloride 97 mmol/L (101-111); Globulin 2.6 g/dL (2-4); Glucose 111 mg/dL (70-100); Potassium 4.3 mmol/L (3.5-5.0); Sodium 132 mmol/L (135-145); Total Protein 6.8 g/dL (6.4-8.9); eGFR CKD-EPI 60.9 (>60)
[2022-01-12] MEDS ORDERED: Senna TAB 8.6 mg TAB PO PRN (16:29)
[2022-01-12 17:19] LABS: Folate > 20.00 ng/mL (5.90-24.80)
[2022-01-12 17:20] LABS: Vitamin B12 682 pg/mL (180-914)
[2022-01-12] MEDS: Enoxaparin 40 MG/0.4 ML SYR SUBCUT SCH (20:03)
[2022-01-12 20:57] LABS: Erythrocyte Sed Rate 17 mm/Hr (0-29)
[2022-01-12] MEDS ORDERED: MELATONIN 10 MG PO SCH (21:00)
[2022-01-13] MEDS: Morphine 2 MG/ML SYRINGE IV PRN ×6 (01:05→21:00)
[2022-01-13 06:01] LABS: Calcium 9.1 mg/dL (8.6-10.3); Potassium 3.9 mmol/L (3.5-5.0); eGFR CKD-EPI 61.7 (>60)
[2022-01-13] MEDS: Polyethylene Glycol 3350 17 GM PACKET PO SCH (08:43)
[2022-01-13] MEDS: Calcium Polycarbophil 625mg TB PO SCH (08:43)
[2022-01-13] MEDS ORDERED: Lisinopril/HCTZ 10/12.5 TA(NF) PO SCH (09:00)
[2022-01-13] MEDS: Enoxaparin 40 MG/0.4 ML SYR SUBCUT SCH (16:41)
[2022-01-14] MEDS: Morphine 2 MG/ML SYRINGE IV PRN ×5 (06:03→17:36)
[2022-01-14] MEDS: Polyethylene Glycol 3350 17 GM PACKET PO SCH (08:20)
[2022-01-14] MEDS: Calcium Polycarbophil 625mg TB PO SCH (08:21)
[2022-01-14] MEDS ORDERED: Morphine 2 MG/ML SYRINGE IV PRN (11:40)
[2022-01-14] MEDS: Morphine ER 15 mg TAB ** extended release PO SCH ×2 (12:11→23:41)
[2022-01-14] MEDS: Oxymetazoline 0.05% NASAL SPR 15 ML BTL BOTH NARES PRN (12:11)
[2022-01-14] MEDS: Enoxaparin 40 MG/0.4 ML SYR SUBCUT SCH (17:36)
[2022-01-14] MEDS: Al Hydrox/Mg Hydrox/Simet LIQ 30 ML UDC PO PRN (20:30)
[2022-01-15] MEDS: Calcium Polycarbophil 625mg TB PO SCH (09:54)
[2022-01-15] MEDS: Polyethylene Glycol 3350 17 GM PACKET PO SCH (09:54)
[2022-01-15] MEDS: Morphine ER 15 mg TAB ** extended release PO SCH (11:12)
[2022-01-15] MEDS: Enoxaparin 40 MG/0.4 ML SYR SUBCUT SCH (16:13)
[2022-01-16] MEDS: Morphine ER 15 mg TAB ** extended release PO SCH ×3 (00:08→23:54)
[2022-01-16] MEDS: Polyethylene Glycol 3350 17 GM PACKET PO SCH (08:47)
[2022-01-16] MEDS: LANSOPRAZOLE 30 MG PO SCH (08:48)
[2022-01-16] MEDS: Calcium Polycarbophil 625mg TB PO SCH (08:49)
[2022-01-16] MEDS: Enoxaparin 40 MG/0.4 ML SYR SUBCUT SCH (16:25)
[2022-01-16 19:30] LABS: TSH Ultra Thyroid Stim Horm 2.29 mcIU/mL (0.34-5.60)
[2022-01-17] MEDS: Al Hydrox/Mg Hydrox/Simet LIQ 30 ML UDC PO PRN ×2 (01:04→16:45)
[2022-01-17] MEDS: Calcium Polycarbophil 625mg TB PO SCH (09:00)
[2022-01-17] MEDS: LANSOPRAZOLE 30 MG PO SCH (09:00)
[2022-01-17] MEDS: Polyethylene Glycol 3350 17 GM PACKET PO SCH (10:37)
[2022-01-17] MEDS: Morphine ER 15 mg TAB ** extended release PO SCH (11:47)
[2022-01-17] MEDS: Enoxaparin 40 MG/0.4 ML SYR SUBCUT SCH (17:23)
[2022-01-17] MEDS: Lansoprazole 30 MG CAP (NF) PO SCH (20:08)
[2022-01-17] MEDS: Oxymetazoline 0.05% NASAL SPR 15 ML BTL BOTH NARES PRN (20:12)
[2022-01-17] MEDS ORDERED: NON FORMULARY RESPIRATORY MED 1 DOSE MISC PO SCH (21:00)
[2022-01-18] MEDS: oxyCODONE SR 10 mg TAB PO SCH ×2 (00:21→09:13)
[2022-01-18 07:57] VITALS: BP 151/85
[2022-01-18] MEDS: Lansoprazole 30 MG CAP (NF) PO SCH (09:12)
[2022-01-18] MEDS: Calcium Polycarbophil 625mg TB PO SCH (09:12)
[2022-01-18] MEDS: Polyethylene Glycol 3350 17 GM PACKET PO SCH (09:18)
== END 2022-01-18 10:45 | DRG 543 ==
LOC: EDHOLD 12:22 → ED 12:22 → EDHOLD 17:35 → SSU 17:53 → SUATTDRO 01-13 15:00
PROVIDERS: ADMIT Internal Medicine; ATTEND Internal Medicine

== ENCOUNTER 2022-02-14 06:17 | Observation (INO) ==
[~2022-02-14 06:17] MED LIST: Buffered Lidocaine 1% SYRIN 1 ml INTRADERM ONE; Lactated Ringers 1000 ml BAG 1,000 ML IV SCH
[2022-02-14] MEDS ORDERED: ceFAZolin 2 GM in NS PREMIX 2 GM/100 ML BAG IVPB ONE (06:53)
[2022-02-14] MEDS ORDERED: Buffered Lidocaine 1% SYRIN 1 ml INTRADERM ONE (07:35)
[2022-02-14] MEDS ORDERED: ROPIVACAINE 5 MG/ML 30 ML BTL (0.5%) ONE ×2 (07:45→09:28)
[2022-02-14] MEDS ORDERED: fentaNYL 100 mcg/2 ml 50 MCG/ML VIAL ONE ×2 (09:27→12:28)
[2022-02-14] MEDS ORDERED: Lidocaine 2% PF 5 ML VIAL ONE (09:27)
[2022-02-14] MEDS ORDERED: Midazolam 2 mg/2 ml VIAL 1 mg/ml 2 ml VIAL (2 mg) ONE (09:27)
[2022-02-14] MEDS ORDERED: Bupivacaine 0.25% SDV PF 10 ML VIAL INJ ONE (09:28)
[2022-02-14] MEDS ORDERED: Vancomycin 1,000 MG VIAL ONE (09:41)
[2022-02-14] MEDS ORDERED: Dexamethasone IV 4 MG/ML VIAL 1 ml VIAL ONE (10:28)
[2022-02-14] MEDS ORDERED: Propofol 10 MG/ML 20 ML BTL ONE (10:28)
[2022-02-14] MEDS ORDERED: Rocuronium 50 mg VIAL 10 mg/ml 5 ml VIAL (50 mg) ONE ×4 (10:28→14:19)
[2022-02-14] MEDS ORDERED: Bacitracin OINTMENT TUBE ONE (11:53)
[2022-02-14] MEDS ORDERED: Acetaminophen IV 1 GM/100ML 1,000 MG/100 ML BAG IV ONE (14:04)
[2022-02-14] MEDS ORDERED: fentaNYL 100 mcg/2 ml 50 MCG/ML VIAL IV PRN (14:28)
[2022-02-14] MEDS ORDERED: Ondansetron 4 mg VIAL 2 MG/ML 2 ml VIAL IV PRN ×2 (14:28→15:20)
[2022-02-14] MEDS ORDERED: Naloxone 0.4 mg VIAL 0.4 mg/ml 1 ml VIAL IV PRN (14:28)
[2022-02-14] MEDS ORDERED: Ondansetron 4 mg VIAL 2 MG/ML 2 ml VIAL ONE (15:17)
[2022-02-14] MEDS ORDERED: Magnesium Hydroxide LIQ 30 ML UDC PO PRN (15:20)
[2022-02-14] MEDS ORDERED: Ondansetron ODT 4 mg TAB 4 MG TAB PO PRN (15:20)
[2022-02-14] MEDS ORDERED: Morphine 2 MG/ML SYRINGE IV PRN (15:20)
[2022-02-14] MEDS ORDERED: Lactulose 30 ml UDC PO PRN (15:20)
[2022-02-14] MEDS ORDERED: hydrALAZINE 20 mg/ml 1 ML Vial IV ONE (15:37)
[2022-02-14] MEDS ORDERED: hydrALAZINE 20 mg/ml 1 ML Vial IV IV SLOW PU ONE (15:48)
[2022-02-14] MEDS ORDERED: Lactated Ringers 1000 ml BAG 1,000 ML IV SCH (16:00)
[2022-02-14 18:52] LABS: ABS Lymphocytes 0.5 10^3/ul (1.0-4.8); ABS Monocytes 0.4 10^3/ul (0-0.8); ABS Neutrophils 10.5 10^3/ul (1.5-7.7); Hematocrit 40 % (35-47); Hemoglobin 12.9 g/dL (12.0-16.0); Lymphocyte % 4.3 %; Mean Corpuscular HGB Conc 33 g/dL (31-36); Mean Corpuscular Hemoglobin 31 pg (27-31); Mean Corpuscular Volume 94 fL (80-97); Mean Platelet Volume 7.5 fL (7.4-10.4); Platelet Count 241 10^3/uL (150-450); Red Cell Distribution Width 14 % (10-15); White Blood Count 11.4 10^3/uL (3.5-10.8)
[2022-02-14 19:05] LABS: Calcium 9.1 mg/dL (8.6-10.3); Magnesium 2.2 mg/dL (1.9-2.7); Potassium 4.7 mmol/L (3.5-5.0); eGFR CKD-EPI 50.6 (>60)
[2022-02-14 20:00] LABS: Albumin 4.2 g/dL (3.2-5.2); Total Bilirubin 0.5 mg/dL (0.2-1.0); Total Protein 6.9 g/dL (6.4-8.9)
[2022-02-14] MEDS ORDERED: ceFAZolin 1 GM ADVAN 1 GM in NS 0.9% 50 ML 50 ML IVPB SCH (22:30)
[2022-02-14] MEDS: Magnesium Hydroxide LIQ 30 ML UDC PO SCH (23:01)
[2022-02-15] MEDS: ceFAZolin 1 GM ADVAN 1 GM in NS 0.9% 50 ML 50 ML IVPB SCH ×3 (00:20→16:24)
[2022-02-15 06:34] LABS: Hematocrit 35 % (35-47); Hemoglobin 11.5 g/dL (12.0-16.0); Mean Platelet Volume 7.4 fL (7.4-10.4); Platelet Count 243 10^3/uL (150-450)
[2022-02-15 06:46] LABS: Calcium 8.7 mg/dL (8.6-10.3); Potassium 4.2 mmol/L (3.5-5.0); eGFR CKD-EPI 53.5 (>60)
[2022-02-15 06:50] LABS: Urine Appearance Clear; Urine Bilirubin Negative (Negative); Urine Blood Negative (Negative); Urine Color Straw; Urine Glucose Negative (Negative); Urine Ketones Negative (Negative); Urine Nitrite Negative (Negative); Urine Protein Negative (Negative); Urine Specific Gravity 1.013 (1.002-1.030); Urine Urobilinogen Negative (Negative)
[2022-02-15] MEDS: Vitamin THERAPEUTIC TAB PO SCH (08:48)
[2022-02-15] MEDS: Magnesium Hydroxide LIQ 30 ML UDC PO SCH ×2 (08:56→21:22)
[2022-02-15] MEDS: Polyethylene Glycol 3350 17 GM PACKET PO SCH (09:42)
[2022-02-15] MEDS: oxyCODONE SR 10 mg TAB PO SCH ×2 (09:43→21:20)
[2022-02-15] MEDS: Heparin 5000 UNITS/ML 1 mL VIAL SUBCUT SCH ×2 (13:32→21:23)
[2022-02-16] MEDS: Heparin 5000 UNITS/ML 1 mL VIAL SUBCUT SCH ×2 (06:14→14:32)
[2022-02-16 07:05] LABS: Hematocrit 31 % (35-47); Hemoglobin 10.7 g/dL (12.0-16.0); Mean Platelet Volume 7.7 fL (7.4-10.4); Platelet Count 213 10^3/uL (150-450)
[2022-02-16] MEDS: Polyethylene Glycol 3350 17 GM PACKET PO SCH (09:21)
[2022-02-16] MEDS: Vitamin THERAPEUTIC TAB PO SCH (09:22)
[2022-02-16] MEDS: Magnesium Hydroxide LIQ 30 ML UDC PO SCH (09:22)
[2022-02-16] MEDS: oxyCODONE SR 10 mg TAB PO SCH (09:23)
[2022-02-16 11:57] VITALS: BP 121/72
== END 2022-02-16 14:50 ==
LOC: INTOOBSV 06:17 → AA 06:17 → MEDTELE 21:34 → SSU 22:12
PROVIDERS: ADMIT Orthopaedic Surgery; ATTEND Orthopaedic Surgery